=== PATIENT | male | born 1950 | race Caucasian/White ===

== ENCOUNTER 2016-08-25 15:47 | Inpatient (IN) | payer MEDICARE ==
[~2016-08-25] VITALS: Ht 170.2 cm; Wt 100.6 kg
[~2016-08-25 15:47] MED LIST: ASPI-973 PO; ATEN25TA PO; ATRV10T PO; BRIM5DRO BOTH_EYES; CLOP75TA3 PO; FLUT9.9S NS; GABA-504 PO; GUAI600T86 PO; INSU200I SQ; INSU300I SQ; KEN25CR EXT; LISI40TA PO; OMEG1CAP25 PO; OMEP20TA86 PO; SPIRONALACTONE PO; VIT1TABL83 PO
[2016-08-25 16:10] VITALS: BP 146/90; PULSE 90; RESP 16; O2SAT 98
[2016-08-25 16:53] LABS: APPEARANCE,URINE CLEAR (CLEAR,HAZY); COLOR,URINE YELLOW (YELLOW); OCCULT BLOOD,URINE NEGATIVE (NEGATIVE); UROBILINOGEN,URINE NORMAL (NORMAL)
[2016-08-25] MEDS ORDERED: 0.9% Sodium Chloride 1,000 ML IV ONE ×2 (18:50→21:41)
--- NOTE | 2016-08-25 18:59 | DRSVH ---
PROCEDURE: CT ABDOMEN AND PELVIS WITH CONTRAST ([id number]) INDICATIONS: abnormal labs , abd pain TECHNIQUE: After the administration of intravenous contrast, 5 mm thick sections acquired from the diaphragm to the symphysis. 5 mm coronal and sagittal reformats were acquired. For radiation dose reduction, the following was used: automated exposure control, adjustment of mA and/or kV according to patient siz e. COMPARISON: None. FINDINGS: Image quality: Excellent. ABDOMEN: Lung bases: Lung bases are clear. Heart size is normal. Atherosclerotic constipation is noted in th e visualized coronary vasculature. Solid organs: Liver and spleen are normal in size and enhancement. There is a 2.1 cm in diameter enh ancing lesion in the posterior-inferior right lobe liver (segment 6). Lesion may represent a hemangi anny. Gallbladder contains a 3.2 cm maximum diameter gallstone. There is gallbladder wall thickening. Pericholecystic inflammation noted. Findings most compatible with acute cholecystitis.. Biliary s ystem is non dilated. Pancreas enhances normally. No adrenal nodules. Kidneys demonstrate normal s ize and enhancement, without hydronephrosis. 2.4 cm left renal cyst is noted. Peritoneum and bowel: Bowel loops demonstrate normal wall thickness and caliber. No free fluid or a ir. The appendix is normal. Nodes and vessels: No retroperitoneal or mesenteric adenopathy by size criteria. Aorta and inferior vena cava are normal in size. Scattered atherosclerotic calcifications noted in the abdominal and pe lvic vasculature. Miscellaneous: No ventral hernias. PELVIS: Genitourinary: Bladder wall thickness is normal. Miscellaneous: No inguinal hernias or adenopathy. Bones: No suspicious bony lesions. No vertebral body compression fractures. Status post lumbosacral spine fusion. IMPRESSION: 1. Cholelithiasis with gallbladder wall thickening and pericholecystic inflammation compatible keyona cystitis. 2. 2.1 cm enhancing lesion in segment 6 of the liver. Lesion may represent small hemangioma, howeve r a dedicated multiphase CT scan of liver is recommended for definitive characterization of the lesio n. 3. Atherosclerosis including the coronary vasculature. Dictated by: Malika Vaca MD, PhD on 08/25/2016 at 18:53 Approved by: Malika Vaca MD, PhD on 08/25/2016 at 18:58
--- NOTE | 2016-08-25 20:44 | ED.REPORT ---
HPI-Abd Pain M 40 and Over Date of Service Aug 25, 2016 ED Provider: Rocio Hebert MD A 65 year old male with a history of diabetes mellitus, GERD, CAD, hypertension , cardiac stent and hyperlipidemia presents to the ED complaining of abdominal pain that began 2 weeks ago. Patient was seen at Urgent Care this morning and sent to the ED for further evaluation after concerning lab workup. His symptoms initially began with flatulence, abdominal bloating and hyperactive bowel sounds. He attributed his initial abdominal pain to constipation and used prune juice, fiber foods and an enema to help relieve his symptoms and stimulated normal BM. Shortly after he began to experience subjective fever, chills and rigors that were relieved by Aleve and adequate hydration. His symptoms have become progressively worse since onset. Patient is currently taking Plavix and baby aspirin. His last dose was earlier this morning. Nursing Notes Stated Complaint: CONSTIPATION Chief Complaint: Male Abdominal Pain Nursing Notes Reviewed: Yes Allergies: Coded Allergies: Penicillins (Verified Allergy, Severe, anaphylaxis, 08/25/16) hydrocodone (Verified Allergy, Severe, stomach ache, 08/25/16) TAPE (Verified Allergy, Intermediate, rash, 08/25/16) surgical tape only codeine (Verified Allergy, Unknown, UNKNOWN, 08/25/16) Uncoded Allergies: ARM BRACE (NEOPRENE) (Adverse Reaction, Severe, ITCH, RASH, 12/16/15) Scheduled Aspirin (Aspirin) 81 Mg Tablet 81 MG PO DAILY Atenolol (Atenolol) 25 Mg Tablet 25 MG PO DAILY Atorvastatin (Lipitor) 10 Mg Tab 10 MG PO HS Brimonidine Tartrate/Timolol (Combigan Eye Drops) 5 Ml Drops 1 DROP AFFECT_EYE BID Clopidogrel Bisulfate (Plavix) 75 Mg Tablet 75 MG PO DAILY Gabapentin (Gabapentin) 400 Mg Capsule 1,200 MG PO TID Insulin Glargine,Hum.rec.anlog (Toujeo Solostar) 300 Unit/Ml (1.5 Ml) Insuln.pen 120 UNIT SQ QAM Liraglutide (Victoza 2-Kristofer) 0.6 Mg/0.1 Ml Pen.injctr 0.6 MG SQ MORNING Lisinopril (Lisinopril) 40 Mg Tablet 40 MG PO DAILY Spironolactone (Spironolactone) 25 Mg Tablet 25 MG PO DAILY Triamcinolone Acet (Triamcinolone Acetonide Cream) 1 Applic/0.25 Gm Cr 1 APPLIC EXT BID 0.1% Vit B Comp/C/FA/Iron/Vit E (Vitamin B Complex Tablet) 1 Each Tablet 1 EACH PO DAILY Scheduled PRN Insulin Lispro (Humalog Kwikpen) 200 Unit/Ml (3 Ml) Insuln.pen 25-45 UNIT SQ DIRECTED PRN PRN CARB COUNTING INSULIN TO CARB RATIO: 1:1, PT HOLDS INSULIN FOR BG < 150 AT HS General Time Seen by MD: 20:43 Chief Complaint Abdominal pain Hx Obtained From: Patient Arrived By: Walk-in Sudden in Onset?: No Onset Occurred: More than a week ago... (2 weeks) Symptom Duration: Since onset Progression since Onset: Constant Location: : Diffuse Quality: Painful Radiation: : Does not radiate Severity: Current: Moderate Severity: Maximum: Moderate Associated with: Reports: Constipation Pertinent Negative: Pt denies other symptoms Recent Healthcare: No recent hospitalization, Recent doctor visit Risk Factors )( AAA Risk Stratification Risk factors reviewed Past Medical History Past Medical History Coronary Artery Disease Diabetes Mellitus (type II) Hypertension Hyperlipidemia GERD Obesity Dyshidrotc eczema Angina pectoris Sleep apnea Osteoarthritis Past Surgical History Cardiac Surgery (HEART CATH W/ BEATRIZ IN LAD 02/2007) Lumbar Neck surgery Reports: Cataract surgery Smoking History Former Smoker Social History Other Social History: Good social support, , Local resident Ambulatory Status Independent Review of Systems ROS: Flatulence decreased appetite Constitutional: Reports: Chills, Fever Respiratory: Denies: Shortness of breath Cardiovascular: Denies: Chest pain GI: Reports: Abdominal pain, Constipation, Nausea, Vomiting Complete sys rev & neg: except as marked. Physical Exam Initial Vital Signs Vital Signs (First) Date Time Temp Pulse Resp B/P Pulse Ox O2 Delivery O2 Flow Rate FiO2 08/25/16 16:10 36.9 90 16 146/90 98 Room Air Initial VS: Reviewed Head / Eyes: Atraumatic, Normocephalic, PERRL Extremities: Vascular intact, Neuro intact, No swelling, No tenderness Skin: Warm, Dry, No cyanosis Neurologic: Alert, Oriented, Nonfocal Psychiatric: Mood/affect normal, Behavior normal, Normal thought content General/Constitutional: Awake, Alert Respiratory / Chest: Atraumatic, Breath sounds NL, Breath sounds = bilat, No respiratory distress Cardiovascular: Heart rate NL, Regular rhythm, Heart sounds NL, No murmurs Abdomen: Atraumatic, Soft, No guarding, No rebound Tenderness/Guarding/Rebound: Positive: Tender RUQ..., Tender epigastric Back: Atraumatic, Inspection NL Interpretation & Diagnostics WBC 13.3 Hgb 13.[address] 456 Sodium 133 Potassium 6.3 Glucose 265 ALT 93 Alk pase 421 Lab Results Interpretation Test 08/25/16 16:26 08/25/16 16:43 Hold Urine Received (Received) Urine Color Yellow (YELLOW) Urine Appearance Clear (CLEAR,HAZY) Urine pH 6.0 (5.0-8.0) Urine Specific [place] 1.010 (1.003-1.035) Urine Protein Negativemg/dL (NEG,TRACE) Urine Glucose (UA) Negativemg/dL (NEGATIVE) Urine Ketones Negativemg/dL (NEGATIVE) Urine Occult Blood Negative (NEGATIVE) Urine Nitrite Negative (NEGATIVE) Urine Bilirubin Negative (NEGATIVE) Urine Urobilinogen Normalmg/dL (NORMAL) Urine Leukocyte Esterase Negative (NEGATIVE) Urine RBC 0-2/hpf (0-2) Urine WBC 0-5/hpf (0-5) Urine Epithelial Cells Occasional/hpf (NONE-MOD) Urine Crystals None seen (NONE SEEN) Urine Bacteria Few/hpf (NONE-FEW) Urine Hyaline Casts None/lpf (NONE) Urine Granular Casts None seen (NONE SEEN) Urine Waxy Casts None seen (NONE SEEN) Urine Red Blood Cell Casts None seen (NONE SEEN) Urine White Blood Cell Casts None seen (NONE SEEN) Urine Mucus None seen (None Seen) Urine Trichomonas None seen (NONE SEEN) Urine Yeast None (NONE SEEN) Urinalysis Comment None Urine Culture Reflexed Not indicated CT Abd / Pelvis Interpretation IMPRESSION: 1. Cholelithiasis with gallbladder wall thickening and pericholecystic inflammation compatible cholecystitis. 2. 2.1 cm enhancing lesion in segment 6 of the liver. Lesion may represent small hemangioma, however a dedicated multiphase CT scan of liver is recommended for definitive characterization of the lesion. 3. Atherosclerosis including the coronary vasculature. Dictated by: Malika Vaca MD, PhD on 08/25/2016 at 18:53 Study type: Abdominal CT IV contrast Interpretation / Wet Read by: Interpret - Radiologist Re-Eval/Medical Decision Med Decision/Clinical Course Presents with 2 weeks of increasing abdominal pain and general malaise intermittent fevers and chills. Labs and CT scan are consistent with developing cholecystitis. He did take aspirin and Plavix this morning. Will be admitted to the hospitalist service with antibiotics, penicillin allergy, pain control nausea control and surgical consultation. Time of Eval: 21:29 Patient Status: Condition improved Re-Evaluation/Progress Note: Patient is rechecked. He is informed of his diagnosis. The patient's questions about the diagnosis and possible surgery are addressed. Patient understands and agrees with plan to admit. Consultation #1: Referral / Consult Name: Andrew Palma MD Consulted With: Surgeon Call Returned at: 21:37 Director Of Program Management: Agrees with eval, Agrees with plan Note: Recommends antibiotic treatment and reevaluate in 24 hours due to Plavix and aspirin Agrees to consult Consultation #2: Referral / Consult Name: Vic Weber MD Consulted With: Hospitalist Call Returned at: 21:45 Director Of Program Management: Will see patient, Agrees with eval, Agrees with plan, Accepts admit Counseled Regarding: Diagnosis, Lab results, Need for admission Discharge & Departure Primary Impression: Cholecystitis Disposition: ADMITTED TO HOSPITAL Vital Signs - All Vital Signs Date Time Temp Pulse Resp B/P Pulse Ox O2 Delivery O2 Flow Rate FiO2 08/25/16 16:10 36.9 90 16 146/90 98 Room Air )( All Prior VS Reviewed: Yes Condition: Improved Referrals: Lennox Gamez DO (PCP) Jean-Paul Love MD Attestation Portions of this note were transcribed by Maida Calero. I, Dr. Hebert personally performed the history, physical exam and medical decision-making; I reviewed and confirmed the accuracy of the information in the transcribed note. Signed by: Prudencio Richardson, 08/25/16 2200. copies to: Lennox Gamez DO; Andrew Palma MD, Shawna L MD Aug 25, 2016 20:44 MAIDA CALERO Aug 25, 2016 20:57
[2016-08-25] MEDS ORDERED: metroNIDAZOLE Inj 500 MG in IV Premix 1 EACH IV ONE (21:45)
[2016-08-25] MEDS ORDERED: HYDROmorphone 0.5 mg/0.5 mL iSecure Syringe IVPUSH PRN ×2 (21:45→23:35)
[2016-08-25] MEDS ORDERED: Ondansetron 2 mg/mL 2 mL Inj IVPUSH PRN ×2 (21:45→22:05)
[2016-08-25] MEDS ORDERED: cefTRIAXone Inj 2,000 MG in Dextrose 5% Minibag Plus 50 ML IV ONE (21:45)
[2016-08-25] MEDS ORDERED: Alum-Mag Hydrox-Simeth 30 mL Suspension PO PRN (22:05)
[2016-08-25] MEDS ORDERED: Polyethylene Glycol (PEG) 17 Gm Powder PO PRN (22:05)
[2016-08-25 22:19] VITALS: BP 127/74; PULSE 69; RESP 18; O2SAT 97
--- NOTE | 2016-08-25 22:47 | PCM.HPMED ---
Subjective Date of Service Aug 25, 2016 Primary Provider: Admitting Physician: Vic Weber MD Primary Care Physician: Lennox Gamez DO Attending Physician: Vic Weber MD Admit Status: From the Emergency Department, Non-Telemetry Chief Complaint: Abdominal pain History of Present Illness: Mr. Justin March is a 65 year old male with a history of insulin-using diabetes mellitus, CAD with cardiac stent in 2006, hypertension, hyperlipidemia, DASHA, and GERD who presents to the ED complaining of generalized abdominal pain that began 2 weeks ago. Patient was seen at Urgent Care this morning and sent to the ED for further evaluation after concerning lab workup. His symptoms initially began with epigastric pain, bloating, constipation, nausea, and poor appetite. He describes the abdominal pain as "burning" and it worsened with lying on his right side. Patient reports to lose 16lbs in the first week. He initially thought it was the GERD and constipation. He had an enema last Monday and has had 3 or 4 small BMs since. His symptoms seem to improve for a few days. However, shortly after he began to experience subjective fever, chills, and rigors. His was concerned and told him to seek medical care today. Patient has had intermittent abdominal pain in the last year but thought it was the heartburn. Patient is currently taking Plavix and baby aspirin. His last dose of Plavix was earlier this morning. Labs from showed K 6.3. WBC 13, Na 133, ALT 93, alk phos 421. CT abd/pelvis confirmed cholelithiasis with gallbladder wall thickening and pericholecystic inflammation compatible cholecystitis. Antibiotics were initiated in the ED with Ceftriaxone and Metronidazole. Surgery was consulted as well. Review of Systems: A comprehensive review of systems was conducted with the patient and found to be negative except as above in the History of Present Illness. Allergies Coded Allergies: Penicillins (Verified Allergy, Severe, anaphylaxis, 08/25/16) hydrocodone (Verified Allergy, Severe, stomach ache, 08/25/16) TAPE (Verified Allergy, Intermediate, rash, 08/25/16) surgical tape only codeine (Verified Allergy, Unknown, UNKNOWN, 08/25/16) Uncoded Allergies: ARM BRACE (NEOPRENE) (Adverse Reaction, Severe, ITCH, RASH, 12/16/15) Home Medications Per next gen Medication Name Directions Aspirin Low Dose 81 mg tablet,delayed release take 1 tablet by oral route every day atenolol 25 mg tablet take 1 tablet by oral route every day atorvastatin 10 mg tablet take 1 tablet by oral route every day at bedtime BD Insulin Pen Needle UF Mini 31 gauge x 3/16" For use with Victoza Combigan 0.2 %-0.5 % eye drops instill 1 drop by ophthalmic route in each eye twice daily Durable Medical Equipment Please display [address] FreeStyle Lite Strips Use to test for blood sugars 4 times a day gabapentin 400 mg capsule take 3 capsule by oral route 3 times every day Humalog KwikPen 100 unit/mL subcutaneous 50-60 units subcu before meals lisinopril 40 mg tablet take 1 tablet by oral route every day [place]-3 1 tablet by mouth 3 times daily Omeprazole Magnesium 20 Mg Tablet,D 1 tablet by mouth 2 times daily Plavix 75 mg tablet take 1 tablet by oral route every day to prevent blood clots. spironolactone 25 mg tablet take 1 tablet by oral route every day Toujeo SoloStar 300 unit/mL (1.5 mL) subcutaneous insulin pen INJECT SUBCUTANEOUSLY 120 UNITS EVERY MORNING triamcinolone acetonide 0.1 % topical cream apply by topical route 2 times every day a thin layer to the affected area(s) Victoza 2-Kristofer 0.6 mg/0.1 mL (18 mg/3 mL) subcutaneous pen injector inject 1.2mg by subcutaneous route once daily Vitamin B Complex 1 tablet by mouth daily PMH Per [employer] Osteoarthritis, multiple sites Hyperlipidemia Dyshidrotic eczema Postnasal Drip Hypertension Knee pain, bilateral Establishing care with new doctor, encounter for Ankle pain, left Chest discomfort Epigastric pain Primary osteoarthritis of both knees Vasomotor rhinitis Angina pectoris Status post insertion of drug-eluting stent into left anterior descending (LAD) artery DASHA (obstructive sleep apnea) Obesity with body mass index of 30.0-39.9 Microalbuminuria due to type 2 diabetes mellitus Diabetes mellitus Surgical History Cardiac Surgery (HEART CATH W/ BEATRIZ IN LAD 02/2007) Lumbar Neck surgery Reports: Cataract surgery Family History Mother with cholecystitis, DM, and HTN. Social History Hx Alcohol Use: Yes (once a month scotch and burboun ) Hx Substance Use: No Smoking Status: Former Smoker (quit smoking in 1982) Living Arrangement: with Family Additional Information Patient uses crutches to get around due to knee pain. Exam Vital Signs Vital Sign - Last Date Time Temp Pulse Resp B/P Pulse Ox O2 Delivery O2 Flow Rate FiO2 08/25/16 22:19 36.8 69 18 127/74 97 Room Air Exam General: No acute distress, obese, well-developed, appropriately interactive HEENT: Normocephalic, atraumatic. External ears without defect. Pupils equal, round, and reactive to light and accommodation. Anicteric sclerae, moist conjunctivae, and no lid lag. Dry mucosa. Neck: Supple with full range of motion. No jugular venous distension. No bruits. No lymphadenopathy or thyromegaly. Cardiovascular: Regular rate and rhythm with no murmurs, rubs, or gallops appreciated Pulmonary: Clear to auscultation bilaterally with no crackles, wheezes, or rhonchi. Normal respiratory effort with no use of accessory muscles. Abdomen: Obese. Bowel tones present. Soft, nondistended. Moderate tenderness to palpation in epigastric and RUQ. Negative Javier's sign. No rebound tenderness/ guarding. No hepatosplenomegaly or masses appreciated. Extremities: No clubbing, cyanosis, edema, or lymphadenopathy appreciated. Skin: Normal temperature, turgor, and texture; no rash, ulcers, or subcutaneous nodules appreciated. Neurological: Cranial nerves grossly intact. Normal muscle strength, tone, and bulk. Reflexes, coordination, and sensory function within normal limits. No known gait impairment. Psychiatric: Normal mood and affect. Alert and oriented to person, place, and time. Lab and Diagnostics Labs WBC 13.3, Platelets 456, Absolute neutrophils 9.74, Na 133, K 6.3, BUN 52, Cr. 1.10, Glucose 265, Lipase 51. X-Rays, CTs and MRIs PROCEDURE: CT ABDOMEN AND PELVIS WITH CONTRAST IMPRESSION: 1. Cholelithiasis with gallbladder wall thickening and pericholecystic inflammation compatible cholecystitis. 2. 2.1 cm enhancing lesion in segment 6 of the liver. Lesion may represent small hemangioma, however a dedicated multiphase CT scan of liver is recommended for definitive characterization of the lesion. 3. Atherosclerosis including the coronary vasculature. Dictated by: Malika Vaca MD, PhD on 08/25/2016 at 18:53 Approved by: Malika Vaca MD, PhD on 08/25/2016 at 18:58 Assessment & Plan 65 year old male with a history of insulin-using diabetes mellitus, CAD with cardiac stent in 2006, hypertension, hyperlipidemia, DASHA, and GERD who presents to the ED complaining of generalized abdominal pain that began 2 weeks ago. 1. Acute cholecystitis, present on admission, active. - CT abd/pelvis showed Cholelithiasis with gallbladder wall thickening and pericholecystic inflammation compatible cholecystitis. - Dr. Palma (general surgery) was consulted and recommended surgery in a couple days due to patient being on Plavix. - Will hold home Plavix, but ok to continue ASA - NPO overnight and can advance diet in the morning per surgery - Pain management with Dilaudid IV 0.5mg Q4H PRN - Continue to monitor vital signs and labs. 2. Abnormal CT, unknown chronicity, present on admission. - CT abd/pelvis also showed a 2.1 cm enhancing lesion in segment 6 of the liver. Lesion may represent small hemangioma, however a dedicated multiphase CT scan of liver is recommended for definitive characterization of the lesion. - AST 44, ALT 93 - Follow up as outpatient 3. Insulin-using diabetes with peripheral neuropathy, proteinuria, and mild nonproliferative background diabetic retinopathy. Chronic, uncontrolled. - Last A1c was 8.5 in 11/2015. Followed by endocrinology as outpatient. - Patient is on basal bolus insulin of 120 units of Toujeo QAM with Humlog U-20 1.5units per 1 g of carb. - He recently started Victoza 1.2mg SQ. Will hold this while in the hospital. - While the patient is NPO, will cut his basal insulin to 50 units QAM with high correctional scale insulin. Consider resume home insulin once advance diet. - Continue to monitor BG before meals - Check A1c in the morning. - Resume home Gabapentin for neuropathy. 4. Acute hyperkalemia, present on admission, active. - K of 6.3. - EKG did not show any changes. - Hold home Spironolactone and Lisinopril, which can worsen the hyperkalemia. Day team can resume these once the hyperkalemia resolves. - Will continue to monitor. 5. History of CAD, chronic, presume stable. - Will hold Plavix due to upcoming surgery. - Continue ASA, Atorvastatin. - Hold Spironolactone and Lisinopril 6. HTN, chronic, stable. - Resume home Atenolol. - Hold Spironolactone and Lisinopril due to hyperkalemia. 7. Hyperlipidemia, chronic, presume stable. - Continue home Atorvastatin 8. DASHA, chronic. - will bring home CPAP tomorrow - In the mean time, can use O2 supplement at night 9. GERD, chronic. - Change home Omeprazole to Protonix 40mg daily. 10. CODE STATUS: FULL CODE Patient is admitted under inpatient status with expected length of stay greater than 2 midnights due to severity of presenting symptoms, risk of adverse event, and complexity of treatment plan. Pain Evaluation: Adequate Pain Control GI Prophylaxis: Proton Pump Inhibitor VTE Prophylaxis: SCDs Resuscitation Status: CPR: Attempt Resuscitation Attending Statement The patient was seen and examined together with Dr. Cotton on 08/25 and I agree with the history, exam and plan as outlined in the note above. copies to: Lennox Gamez DO Nguyen, Ngochanh H DO Aug 25, 2016 22:47 Vic Weber MD Aug 26, 2016 00:11
[2016-08-25] MEDS ORDERED: ATRV10T PO (22:52)
[2016-08-25] MEDS ORDERED: LIRA0.6P SQ (22:52)
--- NOTE | 2016-08-25 23:07 | NUR ---
Admit Note Pt. arrived on floor at 2255. Pt. is alert and oriented x3. present in room. Peripheral IV intact and patent. IVF going. Will continue to monitor.
[2016-08-25 23:14] VITALS: BP 145/91; PULSE 90; RESP 20; O2SAT 96
[2016-08-25] MEDS: 0.9% Sodium Chloride 1,000 ML IV SCH (23:27)
[2016-08-25] MEDS ORDERED: SPIR25TA3 PO (23:29)
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
[2016-08-26] MEDS ORDERED: Glucose 40% Oral Gel 15 Gm Tube PO PRN (00:15)
--- NOTE | 2016-08-26 00:27 | NUR ---
paged MD Cotton paged regarding heparin order. d/c'd heparin order.
[2016-08-26] MEDS ORDERED: Heparin 5,000 Unit/mL Inj SUBQ SCH (00:30)
[2016-08-26] MEDS: Brimonidine-Timolol 5 mL Ophthalmic Solution BOTH_EYES SCH ×3 (01:40→20:29)
[2016-08-26 04:30] LABS: BASOPHILS % (AUTO) 0.6 % (0-3); MONOCYTES % (AUTO) 8.9 % (4-12); Mean Corpuscular Hemoglobin 26.4 pg (27.0-35.0); Mean Corpuscular Volume 81.3 fL (81-100); Platelet Count 418 bil/L (150-400)
[2016-08-26 04:51] VITALS: BP 127/76; PULSE 104; RESP 18; O2SAT 95
[2016-08-26] MEDS: 0.9% Sodium Chloride 1,000 ML IV SCH ×2 (05:35→18:02)
--- NOTE | 2016-08-26 06:33 | PCM.PNMED ---
Subjective Date of Service Aug 26, 2016 Subjective HPI as per admitting physician: Mr. Justin March is a 65 year old male with a history of insulin-using diabetes mellitus, CAD with cardiac stent in 2006, hypertension, hyperlipidemia, DASHA, and GERD who presents to the ED complaining of generalized abdominal pain that began 2 weeks ago. Patient was seen at Urgent Care this morning and sent to the ED for further evaluation after concerning lab workup. His symptoms initially began with epigastric pain, bloating, constipation, nausea, and poor appetite. He describes the abdominal pain as "burning" and it worsened with lying on his right side. Patient reports to lose 16lbs in the first week. He initially thought it was the GERD and constipation. He had an enema last Monday and has had 3 or 4 small BMs since. His symptoms seem to improve for a few days. However, shortly after he began to experience subjective fever, chills, and rigors. His was concerned and told him to seek medical care today. Patient has had intermittent abdominal pain in the last year but thought it was the heartburn. Patient is currently taking Plavix and baby aspirin. His last dose of Plavix was earlier this morning. Labs from showed K 6.3. WBC 13, Na 133, ALT 93, alk phos 421. CT abd/pelvis confirmed cholelithiasis with gallbladder wall thickening and pericholecystic inflammation compatible cholecystitis. Antibiotics were initiated in the ED with Ceftriaxone and Metronidazole. Surgery was consulted as well. S: no overnight events - npo - held plavix, cont asa - plan for lap keyona in a couple days. plan to advance diet IF tolerated. Exam Vital Signs Vital Sign - Last Date Time Temp Pulse Resp B/P Pulse Ox O2 Delivery O2 Flow Rate FiO2 08/26/16 04:51 36.7 104 18 127/76 95 Room Air Intake and Output 08/25/16 08/25/16 08/26/16 Cumulative From/Thru 15:00 23:00 07:00 08/25/16 16:10 - 08/26/16 05:59 Intake Total 1000 ml 757 ml 1757 ml Output Total 650 ml 650 ml Balance 1000 ml 107 ml 1107 ml Intake Oral 0 ml 0 ml IV Total 1000 ml 757 ml 1757 ml Output Urine Total 650 ml 650 ml # Bowel Movements 0 0 Exam General: No acute distress, obese, well-developed, appropriately interactive HEENT: Normocephalic, atraumatic. perrla. Anicteric sclerae, moist conjunctivae , and no lid lag. Neck: Supple with full range of motion. No jugular venous distension. No bruits. No lymphadenopathy or thyromegaly. Cardiovascular:rr no r/c/m/g Pulmonary: ctab no w/r/r Abdomen: Obese. Bowel tones present. Soft, nondistended. Moderate tenderness to palpation in epigastric and RUQ. Negative Javier's sign. No rebound tenderness/ guarding. No hepatosplenomegaly or masses appreciated. Extremities: No c/c/e or lymphadenopathy appreciated. Skin: Normal temperature, turgor, and texture, no rashes Neurological: Cranial nerves 2-12 grossly intact. Normal muscle strength, tone , and bulk. IVs and Medications Medications Reviewed: Medications were reviewed in detail Lab and Diagnostics Result Diagram: 08/26/1640908/26/16409 X-Rays, CTs and MRIs PROCEDURE: CT ABDOMEN AND PELVIS WITH CONTRAST IMPRESSION: 1. Cholelithiasis with gallbladder wall thickening and pericholecystic inflammation compatible cholecystitis. 2. 2.1 cm enhancing lesion in segment 6 of the liver. Lesion may represent small hemangioma, however a dedicated multiphase CT scan of liver is recommended for definitive characterization of the lesion. 3. Atherosclerosis including the coronary vasculature. Dictated by: Malika Vaca MD, PhD on 08/25/2016 at 18:53 Approved by: Malika Vaca MD, PhD on 08/25/2016 at 18:58 Assessment & Plan 65 year old male with a history of insulin-using diabetes mellitus, CAD with cardiac stent in 2006, hypertension, hyperlipidemia, DASHA, and GERD who presents to the ED complaining of generalized abdominal pain that began 2 weeks ago. 1. Acute cholecystitis, present on admission, active. - CT abd/pelvis showed Cholelithiasis with gallbladder wall thickening and pericholecystic inflammation compatible cholecystitis. - Dr. Palma (general surgery) was consulted and recommended surgery in a couple days due to patient being on Plavix. - Will hold home Plavix, but ok to continue ASA - NPO overnight and may advance diet in the morning per surgery - Pain management with Dilaudid IV 0.5mg Q4H PRN - Continue to monitor vital signs and labs. 2. Abnormal CT, unknown chronicity, present on admission. - CT abd/pelvis also showed a 2.1 cm enhancing lesion in segment 6 of the liver. Lesion may represent small hemangioma, however a dedicated multiphase CT scan of liver is recommended for definitive characterization of the lesion. - AST 44, ALT 93 - Follow up as outpatient 3. Insulin-using diabetes with peripheral neuropathy, proteinuria, and mild nonproliferative background diabetic retinopathy. Chronic, uncontrolled. - Last A1c was 8.5 in 11/2015. Followed by endocrinology as outpatient. - Patient is on basal bolus insulin of 120 units of Toujeo QAM with Humlog U-20 1.5units per 1 g of carb. - He recently started Victoza 1.2mg SQ. Will hold this while in the hospital. - While the patient is NPO, will cut his basal insulin to 50 units QAM with high correctional scale insulin. Consider resume home insulin once advance diet. - Continue to monitor BG before meals - Check A1c - Resume home Gabapentin for neuropathy. 4. Acute hyperkalemia, present on admission, active. - K of 6.3. - EKG did not show any changes. - Hold home Spironolactone and Lisinopril, which can worsen the hyperkalemia. Day team can resume these once the hyperkalemia resolves. - Will continue to monitor. 5. History of CAD, chronic, presume stable. - Will hold Plavix due to upcoming surgery. - Continue ASA, Atorvastatin. - Hold Spironolactone and Lisinopril 6. HTN, chronic, stable. - Resume home Atenolol. - Hold Spironolactone and Lisinopril due to hyperkalemia. 7. Hyperlipidemia, chronic, presume stable. - Continue home Atorvastatin 8. DASHA, chronic. - will bring home CPAP today - In the mean time, can use O2 supplement at night 9. GERD, chronic. - Change home Omeprazole to Protonix 40mg daily. 10. CODE STATUS: FULL CODE Patient is admitted under inpatient status with expected length of stay greater than 2 midnights due to severity of presenting symptoms, risk of adverse event, and complexity of treatment plan. Pain Evaluation: Adequate Pain Control GI Prophylaxis: Proton Pump Inhibitor VTE Prophylaxis: Sub-Q Heparin (Unfractionated) VTE Mechanical Devices: Intermittant Pneumatic CD Resuscitation Status: CPR: Attempt Resuscitation Time spent 45 minutes spent with eval and mgmt Lennox Tabor DO Aug 26, 2016 06:33
[2016-08-26] MEDS: Insulin LISPRO 300 Unit/3 mL Inj SUBQ SCH ×4 (08:00→22:34)
[2016-08-26] MEDS ORDERED: Lisinopril 40 Tablet PO SCH (08:30)
[2016-08-26] MEDS ORDERED: Insulin GLARgine 100 Unit/mL Syringe SUBQ SCH (08:30)
--- NOTE | 2016-08-26 08:31 | PCM.PNSURG ---
Subjective Date of Service: Aug 26, 2016 Date of Service: Aug 26, 2016 Visit Information: Reason for Visit: Cholelithiasis with gallbladder wall thickening and pericholecystic inflammation compatible cholecystitis Date of Admission: Aug 25, 2016 at 22:16 Hospital Day # 2 Subjective: The patient is lying in bed in no apparent distress. He continues with generalized abdominal discomfort 3-4/10. He denies fever, chills, or nausea. He does have an appetite and feels he can tolerate some Jell-O but not overly hungry for a meal. Gastrointestinal: No N/V Pain Management: IV Push Postop Activity: Ambulating Independently Objective Vital Sign- Last 8 Hours Date Time Temp Pulse Resp B/P Pulse Ox O2 Delivery O2 Flow Rate FiO2 08/26/16 04:51 36.7 104 18 127/76 95 Room Air Intake and Output- Last 8 Hour 08/26/16 Cumulative From/Thru 07:00 08/25/16 16:10 - 08/26/16 05:59 Intake Total 757 ml 1757 ml Output Total 650 ml 650 ml Balance 107 ml 1107 ml Intake Oral 0 ml 0 ml IV Total 757 ml 1757 ml Output Urine Total 650 ml 650 ml # Bowel Movements 0 0 General: Alert, Oriented X3, No Acute Distress Lungs: Clear to Auscultation Heart: Regular Rate/Rhythm, Normal S1, Normal S2, No Murmurs/Rubs/Gallops Abdomen: Soft, Non-distended, Other (slightly tender mid epigastric) Extremities: Warm, Thigh&Calf Soft/Nontender Neuro: Grossly Neurologically Intact Catheters: None Result Diagram: 08/26/16 0410 08/26/16 0410 Diagnostics: 08/25/16 CT of Abdomen IMPRESSION: 1. Cholelithiasis with gallbladder wall thickening and pericholecystic inflammation compatible cholecystitis.a 2. 2.1 cm enhancing lesion in segment 6 of the liver. Lesion may represent small hemangioma, however a dedicated multiphase CT scan of liver is recommended for definitive characterization of the lesion. 3. Atherosclerosis including the coronary vasculature. Assessment & Plan Impression 65 y/o male with a HX of CAD S/P BEATRIZ to LAD in 2006 on chronic aspirin/plavix therapy who presented to [facility] from Urgent Care c/o worsening abdominal pain and bloating for the last several weeks. Admitted for Acute Cholecystitis. Problems: Plan -Stop plavix, continue aspirin -Advance diet to Full liquid -Decrease IV fluids once taking adequate fluid intake and continue antibiotics -Laparoscopic cholecystectomy possibly Monday. Pain Management: IV push prn VTE Prophylaxis: Sub-Q Heparin (Unfractionated) Resuscitation Status: CPR: Attempt Resuscitation Yue Cartagena PA-C Aug 26, 2016 08:31
[2016-08-26 09:38] VITALS: BP 137/87; PULSE 104; RESP 17; O2SAT 95
--- NOTE | 2016-08-26 12:47 | NUR ---
Social Work- Initial Assessment Data: See Initial Assessment. Pt is a 65 year old male admitted 08/25/16 for cholecystitis per H&P. Pt's insurance is [employer]. Pt's PCP is Lennox Gamez DO. SW met with pt and Lis at bedside to discuss discharge plan, SW role explained. Pt alert and oriented x3. Pt resides in [place] with his where he uses crutches/cane/wheelchair [place]. Pt states he is independent with ADLs. Pt drives. Pt has no HH or SNF history, no LTC or VA benefits. Pt received DPOA paperwork at admission, declined further information. Surgery is following patient. Pt to discharge home with to transport via POV when medically stable. No anticipated discharge needs. SW will continue to follow. Assessment: Pt who is independent at base. Plan: Pt to discharge home with to transport via POV when medically stable. No anticipated discharge needs. SW will continue to follow. LISA Curiel Addendum: 08/26/16 at 1257 by HIREN CORNELL Amended: Links added.
[2016-08-26 13:36] VITALS: BP 146/88; PULSE 101; RESP 14; O2SAT 97
[2016-08-26 17:10] VITALS: BP 145/88; PULSE 80; RESP 14; O2SAT 96
--- NOTE | 2016-08-26 19:35 | NUR ---
activity Pt resting most of shift. voiding without difficulty, no complaints of pain or nausea.
[2016-08-26 20:30] VITALS: BP 137/78; PULSE 88; RESP 18; O2SAT 92
--- NOTE | 2016-08-27 04:03 | NUR ---
Update on pt. care Pt. states "of some discomfort", but denies need for pain meds. No nausea or vomiting. Will continue to monitor.
[2016-08-27 04:35] VITALS: BP 129/80; PULSE 65; RESP 16; O2SAT 95
[2016-08-27 05:03] LABS: BASOPHILS % (AUTO) 0.5 % (0-3); EOSINOPHILS % (AUTO) 2.9 % (0-5); MONOCYTES % (AUTO) 9.9 % (4-12); Mean Corpuscular Hemoglobin 26.3 pg (27.0-35.0); Mean Corpuscular Volume 83.3 fL (81-100); NEUTROPHILS % (AUTO) 59.7 % (40-74); Platelet Count 391 bil/L (150-400)
--- NOTE | 2016-08-27 07:07 | PCM.PNMED ---
Subjective Date of Service Aug 27, 2016 Subjective no sig complaints ovenright - afebrile, did not start IV abx given clinical appearance - plan for sx tomorrow, npo tonight at midnight. denies cp/sob - pain controlled Exam Vital Signs Vital Sign - Last Date Time Temp Pulse Resp B/P Pulse Ox O2 Delivery O2 Flow Rate FiO2 08/27/16 04:35 36.6 65 16 129/80 95 CPAP Intake and Output 08/26/16 08/26/16 08/27/16 Cumulative From/Thru 15:00 23:00 07:00 08/25/16 16:10 - 08/27/16 07:00 Intake Total 1334 ml 1069 ml 4160 ml Output Total 1250 ml 850 ml 2750 ml Balance 84 ml 219 ml 1410 ml Intake Oral 1334 ml 520 ml 1854 ml IV Total 549 ml 2306 ml Output Urine Total 1250 ml 850 ml 2750 ml # Voids 2 2 # Bowel Movements 0 0 0 Exam General: No acute distress, obese, well-developed, appropriately interactive HEENT: Normocephalic, atraumatic. perrla. Anicteric sclerae, moist conjunctivae , and no lid lag. Neck: Supple with full range of motion. No jugular venous distension. No bruits. No lymphadenopathy or thyromegaly. Cardiovascular:rr no r/c/m/g Pulmonary: ctab no w/r/r Abdomen: Obese. Bowel tones present. Soft, nondistended. Moderate tenderness to palpation in epigastric and RUQ. Negative Javier's sign. No rebound tenderness/ guarding. No hepatosplenomegaly or masses appreciated. Extremities: No c/c/e or lymphadenopathy appreciated. Skin: Normal temperature, turgor, and texture, no rashes Neurological: Cranial nerves 2-12 grossly intact. Normal muscle strength, tone , and bulk. IVs and Medications Medications Reviewed: Medications were reviewed in detail Lab and Diagnostics Result Diagram: 08/27/1643408/27/16434 X-Rays, CTs and MRIs PROCEDURE: CT ABDOMEN AND PELVIS WITH CONTRAST IMPRESSION: 1. Cholelithiasis with gallbladder wall thickening and pericholecystic inflammation compatible cholecystitis. 2. 2.1 cm enhancing lesion in segment 6 of the liver. Lesion may represent small hemangioma, however a dedicated multiphase CT scan of liver is recommended for definitive characterization of the lesion. 3. Atherosclerosis including the coronary vasculature. Dictated by: Malika Vaca MD, PhD on 08/25/2016 at 18:53 Approved by: Malika Vaca MD, PhD on 08/25/2016 at 18:58 12-lead ECG SR, q waves inferiorly - no acute ischemic changes Assessment & Plan 65 year old male with a history of insulin-using diabetes mellitus, CAD with cardiac stent in 2006, hypertension, hyperlipidemia, DASHA, and GERD who presents to the ED complaining of generalized abdominal pain that began 2 weeks ago. 1. Acute cholecystitis, present on admission, active. - CT abd/pelvis showed Cholelithiasis with gallbladder wall thickening and pericholecystic inflammation compatible cholecystitis. - Dr. Palma (general surgery) was consulted and recommended surgery in a couple days due to patient being on Plavix. - holding Plavix, continuing ASA - NPO tonight for sx - Pain management with Dilaudid IV 0.5mg Q4H PRN - Continue to monitor vital signs and labs - clinically stable off abx 2. Abnormal CT, unknown chronicity, present on admission. - CT abd/pelvis also showed a 2.1 cm enhancing lesion in segment 6 of the liver. Lesion may represent small hemangioma, however a dedicated multiphase CT scan of liver is recommended for definitive characterization of the lesion. - AST 44, ALT 93 - Follow up as outpatient 3. Insulin-using diabetes with peripheral neuropathy, proteinuria, and mild nonproliferative background diabetic retinopathy. Chronic, uncontrolled. - Last A1c was 8.5 in 11/2015--> 9.6 08/26. Followed by endocrinology as outpatient. - Patient is on basal bolus insulin of 120 units of Toujeo QAM with Humlog U-20 1.5units per 1 g of carb. - He recently started Victoza 1.2mg SQ. Will hold this while in the hospital. - While the patient is NPO, will cut his basal insulin to 50 units QAM-->15u with high correctional scale insulin. - Continue to monitor BG before meals - Resume home Gabapentin for neuropathy. 4. Acute hyperkalemia, present on admission, active. - K of 6.3--> 5.3 today repeat, kayexylate if needed - EKG did not show any changes. - Hold home Spironolactone and Lisinopril, which can worsen the hyperkalemia. Day team can resume these once the hyperkalemia resolves. - Will continue to monitor. 5. History of CAD, chronic, presume stable. - holding Plavix due to upcoming surgery. - Continue ASA, Atorvastatin. - Hold Spironolactone and Lisinopril 6. HTN, chronic, stable. - Resume home Atenolol. - Hold Spironolactone and Lisinopril due to hyperkalemia. 7. Hyperlipidemia, chronic, presume stable. - Continue home Atorvastatin 8. DASHA, chronic. - cont cpap - In the mean time, can use O2 supplement at night 9. GERD, chronic. - Change home Omeprazole to Protonix 40mg daily. 10. CODE STATUS: FULL CODE Patient is admitted under inpatient status with expected length of stay greater than 2 midnights due to severity of presenting symptoms, risk of adverse event, and complexity of treatment plan. Dispo pending sx tomorrow and clinical stability thereafter Pain Evaluation: Adequate Pain Control GI Prophylaxis: Proton Pump Inhibitor VTE Prophylaxis: Sub-Q Heparin (Unfractionated) VTE Mechanical Devices: Intermittant Pneumatic CD Resuscitation Status: CPR: Attempt Resuscitation Time spent 35 minutes spent with priyanka and Lennox Page DO Aug 27, 2016 07:07
[2016-08-27] MEDS: Insulin LISPRO 300 Unit/3 mL Inj SUBQ SCH ×4 (07:27→20:26)
[2016-08-27 08:49] VITALS: BP 127/72; PULSE 80; RESP 18; O2SAT 96
--- NOTE | 2016-08-27 10:21 | PCM.PNSURG ---
Subjective Visit Information: Reason for Visit Cholecystitis Surgery/Surgery Date Post-Op Day # Date of Admission: Aug 25, 2016 at 22:16 Hospital Day # Subjective: feeling fine, still some RUQ discomfort, had a BM Objective Objective Awake in bed Abd: soft Vital Sign- Last 8 Hours Date Time Temp Pulse Resp B/P Pulse Ox O2 Delivery O2 Flow Rate FiO2 08/27/16 08:49 36.7 80 18 127/72 96 Room Air 08/27/16 04:35 36.6 65 16 129/80 95 CPAP Intake and Output- Last 8 Hour 08/27/16 Cumulative From/Thru 07:00 08/25/16 16:10 - 08/27/16 07:00 Intake Total 1069 ml 4160 ml Output Total 850 ml 2750 ml Balance 219 ml 1410 ml Intake Oral 520 ml 1854 ml IV Total 549 ml 2306 ml Output Urine Total 850 ml 2750 ml # Voids 2 2 # Bowel Movements 0 0 Result Diagram: 08/27/16 0435 08/27/16 0810 Assessment & Plan Impression Cholelithiasis vs cholecystitis Problems: Plan Plan for OR tomorrow ? abx stopped? VTE Prophylaxis: Sub-Q Heparin (Unfractionated) Resuscitation Status: CPR: Attempt Resuscitation Andrew Palma MD Aug 27, 2016 10:21
[2016-08-27] MEDS: Insulin GLARgine 100 Unit/mL Syringe SUBQ SCH (10:41)
[2016-08-27] MEDS: Brimonidine-Timolol 5 mL Ophthalmic Solution BOTH_EYES SCH ×2 (10:43→20:23)
[2016-08-27] MEDS: metroNIDAZOLE Inj 500 MG in IV Premix 1 EACH IV SCH (11:42)
[2016-08-27 12:37] VITALS: BP 128/76; PULSE 60; RESP 18; O2SAT 96
[2016-08-27] MEDS: 0.9% Sodium Chloride 1,000 ML IV SCH ×2 (12:50→20:47)
[2016-08-27] MEDS ORDERED: levoFLOXacin Inj 500 MG in IV Premix 1 EACH IV SCH (14:58)
[2016-08-27 16:53] VITALS: BP 132/74; PULSE 69; RESP 18; O2SAT 97
--- NOTE | 2016-08-27 19:11 | NUR ---
Activity Patient denied pain and nausea this shift. Patient up to bathroom with SBA/FWW. NPO after midnight for surgery on Monday. Patient repositions self for comfort. Call light and tray table within reach. Will continue to monitor patient hourly.
[2016-08-27 20:20] VITALS: BP 136/80; PULSE 77; RESP 18; O2SAT 95
[2016-08-27] MEDS ORDERED: Ciprofloxacin Inj 400 MG in IV Premix 1 EACH IV SCH (20:30)
[2016-08-28] VITALS (7 sets, daily range): BP systolic 106–154; BP diastolic 58–94; PULSE 63–79; RESP 16–20; O2SAT 96–100
[2016-08-28] MEDS: metroNIDAZOLE Inj 500 MG in IV Premix 1 EACH IV SCH ×3 (00:36→19:09)
--- NOTE | 2016-08-28 04:09 | NUR ---
Activity Pt. was informed and educated on being NPO at midnight for surgery today. Pt. verbalized understanding. Pt. reports "a dull ache" in his right upper quadrant of abdomen, however denies need for pain medicine at this time. Will continue to monitor.
[2016-08-28 05:00] LABS: BASOPHILS % (AUTO) 0.3 % (0-3); EOSINOPHILS % (AUTO) 3.5 % (0-5); MONOCYTES % (AUTO) 10.4 % (4-12); Mean Corpuscular Hemoglobin 26.4 pg (27.0-35.0); Mean Corpuscular Volume 82.4 fL (81-100); NEUTROPHILS % (AUTO) 58.3 % (40-74); Platelet Count 368 bil/L (150-400)
[2016-08-28] MEDS ORDERED: Albuterol HFA 60 Puff 8 Gm Inhaler INHALATION ONE (06:40)
--- NOTE | 2016-08-28 06:44 | PCM.PNMED ---
Subjective Date of Service Aug 28, 2016 Subjective pt with minimal pain overnight, no nausea, passing gas - NPO now for surgery today. mild elev K, repeat level and dose of albuterol this AM. Kayexylate when taking PO Exam Vital Signs Vital Sign - Last Date Time Temp Pulse Resp B/P Pulse Ox O2 Delivery O2 Flow Rate FiO2 08/28/16 05:40 36.3 79 16 139/79 97 Room Air Intake and Output 08/27/16 08/27/16 08/28/16 Cumulative From/Thru 15:00 23:00 07:00 08/25/16 16:10 - 08/28/16 05:37 Intake Total 1618 ml 689 ml 6467 ml Output Total 1040 ml 3790 ml Balance 578 ml 689 ml 2677 ml Intake Oral 840 ml 2694 ml IV Total 778 ml 689 ml 3773 ml Output Urine Total 1040 ml 3790 ml # Voids 2 # Bowel Movements 3 3 Exam General: No acute distress, obese, well-developed, appropriately interactive HEENT: Normocephalic, atraumatic. perrla. Anicteric sclerae, moist conjunctivae , and no lid lag. Neck: Supple with full range of motion. No jugular venous distension. No bruits. No lymphadenopathy or thyromegaly. Cardiovascular:rr no r/c/m/g Pulmonary: ctab no w/r/r Abdomen: Obese. Bowel tones present. Soft, nondistended. Moderate tenderness to palpation in epigastric and RUQ. Negative Javier's sign. No rebound tenderness/ guarding. No hepatosplenomegaly or masses appreciated. Extremities: No c/c/e or lymphadenopathy appreciated. Skin: Normal temperature, turgor, and texture, no rashes Neurological: Cranial nerves 2-12 grossly intact. Normal muscle strength, tone , and bulk. IVs and Medications Medications Reviewed: Medications were reviewed in detail Lab and Diagnostics Result Diagram: 08/28/1641408/28/16414 X-Rays, CTs and MRIs PROCEDURE: CT ABDOMEN AND PELVIS WITH CONTRAST IMPRESSION: 1. Cholelithiasis with gallbladder wall thickening and pericholecystic inflammation compatible cholecystitis. 2. 2.1 cm enhancing lesion in segment 6 of the liver. Lesion may represent small hemangioma, however a dedicated multiphase CT scan of liver is recommended for definitive characterization of the lesion. 3. Atherosclerosis including the coronary vasculature. Dictated by: Malika Vaca MD, PhD on 08/25/2016 at 18:53 Approved by: Malika Vaca MD, PhD on 08/25/2016 at 18:58 12-lead ECG SR, q waves inferiorly - no acute ischemic changes Assessment & Plan 65 year old male with a history of insulin-using diabetes mellitus, CAD with cardiac stent in 2006, hypertension, hyperlipidemia, DASHA, and GERD who presents to the ED complaining of generalized abdominal pain that began 2 weeks ago. 1. Acute cholecystitis, present on admission, active. - CT abd/pelvis showed Cholelithiasis with gallbladder wall thickening and pericholecystic inflammation compatible cholecystitis. - Dr. Palma (general surgery) was consulted and recommended delaying sx since pt was on plavix - sx planned 08/28 - holding Plavix, continuing ASA, will hold today 08/28 for sx and restart after - NPO tonight for sx - Pain management with Dilaudid IV 0.5mg Q4H PRN - Continue to monitor vital signs and labs - levo/flagyl abx 2. Abnormal CT, unknown chronicity, present on admission. - CT abd/pelvis also showed a 2.1 cm enhancing lesion in segment 6 of the liver. Lesion may represent small hemangioma, however a dedicated multiphase CT scan of liver is recommended for definitive characterization of the lesion. - AST 44, ALT 93 --> resolved - Follow up as outpatient w PCP Dr. Gamez 3. Insulin-using diabetes with peripheral neuropathy, proteinuria, and mild nonproliferative background diabetic retinopathy. Chronic, uncontrolled. - Last A1c was 8.5 in 11/2015--> 9.6 08/26. Followed by endocrinology as outpatient. - Patient is on basal bolus insulin of 120 units of Toujeo QAM with Humlog U-20 1.5units per 1 g of carb. - He recently started Victoza 1.2mg SQ. Will hold this while in the hospital. - While the patient is NPO, will cut his basal insulin to 50 units QAM-->15u with high correctional scale insulin. - Continue to monitor BG before meals - Resume home Gabapentin for neuropathy. 4. Acute hyperkalemia, present on admission, active. - K of 6.3--> 5.3 today repeat, kayexylate if needed. repeat level, add albuterol inhaler today, kayexylate after sx - repeat ekg 08/28, no prev changes with mild elev K - Hold home Spironolactone and Lisinopril, which can worsen the hyperkalemia. - Will continue to monitor. 5. History of CAD, chronic, presume stable. - holding Plavix due to upcoming surgery. - Continue ASA, Atorvastatin. - Hold Spironolactone and Lisinopril 6. HTN, chronic, stable. - Resume home Atenolol. - Hold Spironolactone and Lisinopril due to hyperkalemia. 7. Hyperlipidemia, chronic, presume stable. - Continue home Atorvastatin 8. DASHA, chronic. - cont cpap - In the mean time, can use O2 supplement at night 9. GERD, chronic. - Change home Omeprazole to Protonix 40mg daily. 10. CODE STATUS: FULL CODE Patient is admitted under inpatient status with expected length of stay greater than 2 midnights due to severity of presenting symptoms, risk of adverse event, and complexity of treatment plan. Dispo pending sx tomorrow and clinical stability thereafter Pain Evaluation: Adequate Pain Control GI Prophylaxis: Proton Pump Inhibitor VTE Prophylaxis: Sub-Q Heparin (Unfractionated) VTE Mechanical Devices: Intermittant Pneumatic CD Resuscitation Status: CPR: Attempt Resuscitation Time spent 35 minutes spent with priyanka and Lennox Page DO Aug 28, 2016 06:44
[2016-08-28] MEDS: Insulin LISPRO 300 Unit/3 mL Inj SUBQ SCH ×2 (08:00→15:50)
[2016-08-28] MEDS ORDERED: fentaNYL-PF 50 mCg/mL 2 mL Inj ONE (08:24)
[2016-08-28] MEDS: Insulin GLARgine 100 Unit/mL Syringe SUBQ SCH (08:24)
[2016-08-28] MEDS ORDERED: Vasopressin 20 Unit/mL Inj ONE (08:24)
[2016-08-28] MEDS ORDERED: Rocuronium 10 mg/mL 5 mL Inj ONE (08:24)
[2016-08-28] MEDS ORDERED: Propofol 10,000 mCg/mL 20 mL Inj ONE (08:24)
[2016-08-28] MEDS ORDERED: EPHEDrine/NS 5 mg/mL 5 mL Syringe ONE (08:24)
[2016-08-28] MEDS ORDERED: Phenylephrine/NS 100 mCg/mL 10 mL Syringe IVPUSH ONE (08:24)
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
--- NOTE | 2016-08-28 09:30 | NUR ---
TO OR IV ABT ongoing. Beta-aleyda administered. NPO since midnight. SCD's are on. Report given to Madeleine in the OR. Transferred to the OR via a gurney. is aware of this.
[2016-08-28] MEDS: Brimonidine-Timolol 5 mL Ophthalmic Solution BOTH_EYES SCH ×2 (09:31→21:52)
[2016-08-28] MEDS ORDERED: Lactated Ringer's 1,000 ML IV ONE ×4 (10:18→14:06)
[2016-08-28] MEDS ORDERED: Lactated Ringer's 500 ML IV PRN (10:34)
[2016-08-28] MEDS ORDERED: Lactated Ringer's 1,000 ML IV SCH (10:34)
[2016-08-28] MEDS ORDERED: hydrALAZINE 20 mg/mL Inj IVPUSH PRN (10:35)
[2016-08-28] MEDS ORDERED: Phenylephrine 10,000 mCg/mL Inj IVPUSH PRN (10:35)
[2016-08-28] MEDS ORDERED: EPHEDrine Sulfate 50 mg/mL Inj IVPUSH PRN (10:35)
[2016-08-28] MEDS ORDERED: Labetalol 5 mg/mL 4 mL Inj IV PRN (10:35)
[2016-08-28] MEDS ORDERED: fentaNYL-PF 50 mCg/mL 2 mL Inj IVPUSH PRN (10:35)
[2016-08-28] MEDS ORDERED: Dexamethasone 4 mg/mL Inj IVPUSH PRN (10:35)
[2016-08-28] MEDS ORDERED: Ondansetron 2 mg/mL 2 mL Inj IVPUSH PRN (10:35)
[2016-08-28] MEDS ORDERED: Atropine 0.4 mg/mL Inj IVPUSH PRN (10:35)
[2016-08-28] MEDS ORDERED: HYDROmorphone 1 mg/mL Inj IVPUSH PRN ×2 (10:35→15:25)
[2016-08-28] MEDS ORDERED: Bupivacaine 0.5%/EPI 50 mL Inj INFILTRATE ONE (10:59)
[2016-08-28] MEDS ORDERED: 0.9% Sodium Chloride 1,000 ML IV ONE ×3 (12:17→14:06)
[2016-08-28 13:51] LABS: BASOPHILS % (AUTO) 0.2 % (0-3); EOSINOPHILS % (AUTO) 0.9 % (0-5); MONOCYTES % (AUTO) 5.3 % (4-12); Mean Corpuscular Hemoglobin 26.6 pg (27.0-35.0); Mean Corpuscular Volume 85.6 fL (81-100); NEUTROPHILS % (AUTO) 76.3 % (40-74); Platelet Count 394 bil/L (150-400)
[2016-08-28 14:04] LABS: INR 1.12 ratio
[2016-08-28 14:22] LABS: Magnesium 1.2 mg/dL (1.6-2.6)
--- NOTE | 2016-08-28 14:59 | DRSVH ---
PROCEDURE: X-RAY OPERATIVE CHOLANGIOGRAM ([id number]) INDICATIONS: STONES COMPARISON: None. FINDINGS: Biliary ducts: The surgeon injected contrast into the biliary ducts after cannulation of the cystic duct stump. Visualized intra-hepatic ducts are within normal limits. No filling of the common bile d uct nor common hepatic duct is present. There is extravasation of contrast at the cannula insertion s ite. There is mild narrowing of the common bile duct at the cannula insertion site. There is irregula rity and narrowing of the common bile duct proximally. There is eventually flow of contrast into the duodenum. Distal common bile duct demonstrates mild narrowing. IMPRESSION: 1. Moderate narrowing and irregularity of the proximal aspect of the common bile duct. This could be further assessed with ERCP, if clinically indicated. Dictated by: Amber Knapp M.D. on 08/28/2016 at 14:52 Approved by: Amber Knapp M.D. on 08/28/2016 at 14:57
[2016-08-28] MEDS ORDERED: fentaNYL 2,500 mCg/250 mL 2,500 MCG in IV Premix 1 EACH IV PRN (16:22)
[2016-08-28] MEDS: Chlorhexidine 0.12% 15 mL Oral Solution MT SCH ×2 (16:30→20:30)
--- NOTE | 2016-08-28 16:45 | DRSVH ---
PROCEDURE: X-RAY CHEST ONE VIEW, PORTABLE ([id number]) INDICATIONS: Postoperative. ETT with withdrawn following the film. TECHNIQUE: One view of the chest was acquired. COMPARISON: [facility], CR, XR ABD ACUTE SERIES 3VW, 08/25/2016, 11:22. FINDINGS: Surgical changes and devices: ETT extends into the right mainstem bronchus. NGT extends below the lev el of the film. The left sided central venous catheter, tip of which is not definitively venous. Lungs and pleura: No pleural effusions or pneumothorax. Moderate left basilar airspace opacity. Mediastinum: Mediastinal contours appear normal. Heart size is normal. Bones and chest wall: No suspicious bony lesions. Overlying soft tissues appear unremarkable. IMPRESSION: 1. Right mainstem bronchus intubation. 2. Left-sided catheter has been placed, the tip of which is not well seen, and is possibly arterial. Repeat imaging versus blood gas measurements on catheter aspirate recommended. 3. Left basilar atelectasis versus pneumonia. Follow up plain films of the chest are recommended to ensure resolution, and to exclude underlying or central malignancy. 4. Findings discussed with Dr. Chi on 08.28.16 at 1643 hrs. Dictated by: Amber Knapp M.D. on 08/28/2016 at 16:39 Transcribed by: JOSIAS on 08/28/2016 at 16:45 Approved by: Amber Knapp M.D. on 08/28/2016 at 16:46
[2016-08-28] MEDS ORDERED: Insulin Human REGular Inj 100 UNIT in 0.9% Sodium Chloride-Pha MIX 100 ML IV SCH (16:58)
[2016-08-28] MEDS: Propofol Inj 1,000,000 MCG in IV Premix 1 EACH IV SCH (16:59)
[2016-08-28] MEDS ORDERED: Sodium Chloride LOK Flush 10 mL Syringe IVFLUSH PRN ×4 (17:05→18:50)
--- NOTE | 2016-08-28 17:05 | ABG ---
DateTimeAnalyzed 17:01:00 -_ pH ____7.465 - 7.350 7.450 pCO2 ___26.3__ -mmHg 35.0 45.0 pO2 120 -mmHg 69.0 116 HCO3- ___18.7__ -mmol/L 22.0 26.0 ABE ___-3.3__ -mmol/L -2.0 2.0 tHb ___12.8__ -g/dL O2Hb ___96.6__ -% COHb ____1.4__ -% MetHb ____1.0__ -% sO2 ___99.0__ -% 25.0 FIO2 ___60.0__ -% PEEP ____5.0__ -cmH2O Set_RR ___20.0__ -b/min Vt __500.0__ -L Drawn By KBB - Date/Time Notified____ 17:04:00 -_ Oxygen Device 1 VENTILATOR - Notified By KBB - Notified Whom Ochoa Chi, MD -__ B 750 -mmHg tO2 ___17.6__ -Vol% Addy test N/A -
[2016-08-28 17:07] LABS: BASOPHILS % (AUTO) 0.1 % (0-3); EOSINOPHILS % (AUTO) 0 % (0-5); MONOCYTES % (AUTO) 6.9 % (4-12); Mean Corpuscular Hemoglobin 28.9 pg (27.0-35.0); Mean Corpuscular Volume 84.9 fL (81-100); NEUTROPHILS % (AUTO) 88.5 % (40-74); Platelet Count 334 bil/L (150-400)
--- NOTE | 2016-08-28 17:11 | PCM.ANEP1 ---
Post Anesthesia Phase 1 PACU Phase 1 Assessment Date of Service: Aug 26, 2016 Vital Signs Vital Signs Date Time Temp Pulse Resp B/P Pulse Ox O2 Delivery O2 Flow Rate FiO2 08/28/16 09:36 36.5 63 16 133/73 96 Room Air Anesthetic Administered: GA Pain: No Airway Device: Endotrachial Tube Lungs: Clear to Auscultation Summary Patient to ICU intubated on monitor. VS stable Stuart Stevens MD Aug 28, 2016 17:11
[2016-08-28 17:23] LABS: APPEARANCE,URINE CLEAR (CLEAR,HAZY); COLOR,URINE YELLOW (YELLOW); OCCULT BLOOD,URINE NEGATIVE (NEGATIVE); UROBILINOGEN,URINE NORMAL (NORMAL)
--- NOTE | 2016-08-28 17:29 | PCM.PNMED ---
Subjective Date of Service Aug 28, 2016 Subjective 65-year-old man with history of orally controlled type II diabetes mellitus ( hemoglobin A1c 9.6%, glargine insulin 120 units per day, Humalog 55 units 3 times a day), CAD on Plavix with stent 2006, hypertension ( atenolol, spironolactone and lisinopril), DASHA was admitted on 08/25 with acute cholecystitis. Plavix was discontinued and he was taken to surgery on 08/28. Intraoperative observations include perforated gallbladder, hepatic bile duct confluence injury with surgical repair, blood loss of approximately 1 L, intraoperative hypotension. Subsequently received 3 units PRBCs. He is transferred to the CCU intubated and sedated from intraoperative anesthesia. He is able to open both eyes spontaneously. Intubated. Exam Vital Signs Vital Sign - Last Date Time Temp Pulse Resp B/P Pulse Ox O2 Delivery O2 Flow Rate FiO2 08/28/16 09:36 36.5 63 16 133/73 96 Room Air Intake and Output 08/27/16 08/27/16 08/28/16 Cumulative From/Thru 15:00 23:00 07:00 08/25/16 16:10 - 08/28/16 05:37 Intake Total 1618 ml 689 ml 6467 ml Output Total 1040 ml 3790 ml Balance 578 ml 689 ml 2677 ml Intake Oral 840 ml 2694 ml IV Total 778 ml 689 ml 3773 ml Output Urine Total 1040 ml 3790 ml # Voids 2 # Bowel Movements 3 3 Exam General: Obese middle-aged man, slightly pale sedated, intubated, HEENT: sclerae anicteric, oral mucosa moist Neck: left IJ CVC Chest: clear to auscultation, symmetric breath sounds, Cardiac: S1S2, no murmur Abdomen: BS normal, soft, right upper quadrant drain; Alves catheter Extremities: No edema Neuro: Face appears symmetric, EOMI, PERRLA, motor tone normal, spontaneous movements bilaterally IVs and Medications Medications Reviewed: Medications were reviewed in detail Lab and Diagnostics Magnesium 1.2 Fibrinogen 268, PTT 27.7, INR 1.12. AST increased from 16 up to 136. Arterial blood gas: DateTimeAnalyzed 17:01:00 -_ pH ____7.465 - 7.350 7.450 pCO2 ___26.3__ -mmHg 35.0 45.0 pO2 120 -mmHg 69.0 116 HCO3- ___18.7__ -mmol/L 22.0 26.0 FIO2 ___60.0__ -% Result Diagram: 08/28/16 1635 08/28/16 1330 X-Rays, CTs and MRIs PROCEDURE: CT ABDOMEN AND PELVIS WITH CONTRAST IMPRESSION: 1. Cholelithiasis with gallbladder wall thickening and pericholecystic inflammation compatible cholecystitis. 2. 2.1 cm enhancing lesion in segment 6 of the liver. Lesion may represent small hemangioma, however a dedicated multiphase CT scan of liver is recommended for definitive characterization of the lesion. 3. Atherosclerosis including the coronary vasculature. Dictated by: Malika Vaca MD, PhD on 08/25/2016 at 18:53 Approved by: Malika Vaca MD, PhD on 08/25/2016 at 18:58 PROCEDURE: X-RAY CHEST ONE VIEW, PORTABLE ([id number]) IMPRESSION: 1. Right mainstem bronchus intubation. 2. Left-sided catheter has been placed, the tip of which is not well seen, and is possibly arterial. Repeat imaging versus blood gas measurements on catheter aspirate recommended. 3. Left basilar atelectasis versus pneumonia. Follow up plain films of the chest are recommended to ensure resolution, and to exclude underlying or central malignancy. 4. Findings discussed with Dr. Chi on 08.28.16 at 1643 hrs. Dictated by: Amber Knapp M.D. on 08/28/2016 at 16:39 12-lead ECG SR, q waves inferiorly - no acute ischemic changes Assessment & Plan 65 year old male with a history of insulin-using diabetes mellitus, CAD with cardiac stent in 2006, hypertension, hyperlipidemia, DASHA, and GERD who presents with cholecystitis, operative course complicated by spontaneous perforated gallbladder, hepatic bile duct surgical perforation repaired, significant intraoperative hypotension and blood loss. Acute and/or high risk problem: #. Acute cholecystitis, present on admission, active. - CT abd/pelvis showed Cholelithiasis with gallbladder wall thickening and pericholecystic inflammation compatible cholecystitis. - Pain management with IV fentanyl drip - Antibiotic ceftriaxone plus metronidazole - Monitor output from MARQUISE drain - Nothing by mouth at present; postoperative abdominal management per surgery service #. Acute blood loss anemia. Acute. No coagulopathy. - Repeat H/H after 3 unit RBC resuscitation - IV lactated Ringer's at 120 mL per hour; increase as needed maintain mean arterial pressure greater than 65 mmHg #. Acute respiratory failure. Intubation due to surgery and operative course. - ETT right mainstem intubation was corrected. Oxygen saturation and clinical exam are normal. No follow-up x-ray needed - ABG reveals mild overventilation; weight is reduced - Plan SBT in a.m. on 08/29 in a.m. if clinical course stabilizes - Ventilation sedation: Propofol, fentanyl #. Acute hyperkalemia, present on admission, active. - No EKG changes with K 6.6 on 08/28 - Hold home Spironolactone and Lisinopril. - Will continue to monitor. - Repeat BMP pending #. History of CAD, chronic, presume stable. - holding Plavix; will resume after patient is clinically stable - Continue ASA, Atorvastatin. - Check serial troponins #. Insulin-using diabetes with peripheral neuropathy, proteinuria, and mild nonproliferative background diabetic retinopathy. Chronic, uncontrolled. - 60 units glargine with Every 6 hours regular insulin 10-20, while nothing by mouth - 4 times a day capillary blood glucose - Glucose control goals: Random less than 180, fasting less than 140, none less than 70 - Insulin as needed, divided 50-50 long-acting and nutritional/correctional - Outpatient total daily insulin dose is 280 units Resolving, stable or chronic problems: #. Abnormal CT, unknown chronicity, present on admission. - CT abd/pelvis also showed a 2.1 cm enhancing lesion in segment 6 of the liver. Lesion may represent small hemangioma, however a dedicated multiphase CT scan of liver is recommended for definitive characterization of the lesion. - AST 44, ALT 93 --> resolved - Follow up as outpatient w PCP Dr. Gamez #. HTN, chronic, stable. - Resume home Atenolol; when necessary labetalol as needed -Resume atenolol, Spironolactone and Lisinopril when stable. #. Hyperlipidemia, chronic, presume stable. - Continue home Atorvastatin #. DASHA, chronic. - Plan to resume CPAP after patient is extubated #. GERD, chronic. -Continue CCU GI prophylaxis with IV Protonix #. DVT prophylaxis - resume after perioperative hemostasis assured #. CODE STATUS: FULL CODE Patient is admitted under inpatient status with expected length of stay greater than 2 midnights due to severity of presenting symptoms, risk of adverse event, and complexity of treatment plan. Dispo pending sx tomorrow and clinical stability thereafter GI Prophylaxis: Proton Pump Inhibitor VTE Prophylaxis: Sub-Q Heparin (Unfractionated) VTE Mechanical Devices: Intermittant Pneumatic CD Resuscitation Status: CPR: Attempt Resuscitation Time spent 50 min, critical care time Ochoa Chi MD Aug 28, 2016 17:29
[2016-08-28] MEDS ORDERED: Magnesium Sulf 4 Gm/100 mL H2O 4 GM in IV Premix 1 EACH IV ONE (17:50)
[2016-08-28] MEDS ORDERED: levoFLOXacin Inj 500 MG in IV Premix 1 EACH IV SCH (18:00)
--- NOTE | 2016-08-28 18:35 | DRSVH ---
PROCEDURE: X-RAY CHEST ONE VIEW, PORTABLE ([id number]) INDICATIONS: Line placement confirmation TECHNIQUE: One view of the chest was acquired. COMPARISON: [facility], CR, XR CHEST 1VW (PORTABLE), 08/28/2016, 16:09. FINDINGS: Surgical changes and devices: Right internal jugular vein central venous catheter is present, tip of which projects over the right brachiocephalic vein. Left-sided catheter has been removed. ETT has bee n withdrawn to T2 location. NGT extends below the level of the film. Lungs and pleura: No pleural effusions or pneumothorax. Lungs are clear. Mediastinum: Mediastinal contours appear normal. Heart size is normal. Bones and chest wall: No suspicious bony lesions. Overlying soft tissues appear unremarkable. IMPRESSION: 1. No complication following right sided venous catheter placement. Dictated by: Amber Knapp M.D. on 08/28/2016 at 18:33 Approved by: Amber Knapp M.D. on 08/28/2016 at 18:34
--- NOTE | 2016-08-28 18:56 | PCM.ANEP2 ---
Post Anesthesia Evaluation ASA/CMS Post Anesthesia VS in Patient's Normal Range?: Yes Resp Stable; Airway Patent?: No CV Function & Hydration Stable: Yes Mental Status Recovered?: No N/V Control Satisfactory?: Yes Additional Comments Intubated on Ventilator Stuart Stevens MD Aug 28, 2016 18:56
[2016-08-28] MEDS: Lactated Ringer's 1,000 ML IV SCH (19:13)
--- NOTE | 2016-08-28 19:20 | NUR ---
Admit to CCU Pt arrived to CCU at aprox 1625. Pt intubated, RASS -3 to -4, SpO2 100%. Placed on ventilator, see RT note. Current vent settings: FiO2 60%, PEEP 5, Vt 500, Rate 16. NSR 70s. SBP low 100s/70s. Pt not requiring vasopressor support. R radial a-line in place, draws easily for labs; correlating closely with cuff pressure. Abd dsg c/d/i. MARQUISE to bulb suction, sanguinous output. Scant bloody output from OGT, Dr. Palma aware. Cox draining small amount lilibeth, clear UOP from cox 60cc from [id number]; Dr. Palma aware, no new orders. L IJ not functioning, anesthesiologist in to evaluate, along with Dr. Chi and Dr. Valladares, unable to get line to fuction. Anesthesiologist d/c'd line. IV therapy in to evaluate for PICC placement, as ordered by Dr. Chi; per DRY CHAIN OFFBEARER pt vessels too small to place line. Dr. Palma in to place R IJ. R triple-lumen IJ placed and confirmed. Afebrile. at bedside.
[2016-08-28] MEDS ORDERED: Insulin Human REGular 100 Units/100 mL NS IV SCH ×2 (20:30)
[2016-08-28] MEDS ORDERED: Insulin Human REGular 300 Unit/3 mL Inj SUBQ SCH (20:30)
--- NOTE | 2016-08-28 20:43 | OP ---
[address] [address] OPERATIVE REPORT PATIENT: DIAMANTE AZAR : 1950 MR#: [id number] ADMIT: 08/25/2016 JOB ID: [id number] DATE OF SURGERY: 08/28/2016 SURGEON: Andrew Palma MD. POWER PLANT ASSISTANT: 1. Ang Burris PA-C. 2. Lamont Yadav MD. ANESTHESIA: General. PREOPERATIVE DIAGNOSIS(ES): Chronic cholecystitis. POSTOPERATIVE DIAGNOSIS(ES): Perforated gallbladder with abscess. Procedure: Laparoscopy converted to open Partial cholecystectomy, repair of common hepatic duct injury, drain placement. Modifier 22 requested. INDICATION FOR PROCEDURE: The patient is a 65-year-old male with abdominal pain and a CT scan finding consistent with cholecystitis with cholelithiasis. The patient was on aspirin and Plavix due to his drug-eluting stent, and his Plavix was held until today. PRINCIPAL FINDING: The undersurface of the liver and gallbladder were completely obscured by omentum upon entry, and upon peeling off the omentum we encountered purulence. It appeared to be a perforation of the gallbladder at the fundus and we could see the gallstone through the perforation.. A hand port was placed to help with dissection thru manual palpation. We were able to dissect from the top down to approximately half of the gallbladder. Consideration was given to performing a partial cholecystectomy at this point, however, I made the decision to convert to an open surgical procedure to try to remove the entire gallbladder. Bleeding from the hepatic artery or a branch of it was encountered , and Dr. Lamont Yadav came in to help. Once we controlled the bleeding from the artery, there was evidence of bile adjacent to the bleeding site. Using a cholangiocatheter we identified this site to be at the confluence of the right and left hepatic duct. Telephone consultation was obtained with Helene Duke, who recommended simple repair of the bile duct injury and a MARQUISE drain was left. The gallbladder was amputated and approximately a quarter to a fifth of the infundibulum was left behind. The GB mucosa was cauterized. PROCEDURE COURSE: The patient was brought to the operating table and underwent general endotracheal anesthesia. The patient had received IV antibiotics and he was provided with SCDs. A time-out was performed. Patient's abdomen was prepped and draped in the usual sterile fashion. Next, local anesthetic was injected into the infraumbilical location and a 5 mm stab incision was made. A Veress needle was used to establish a pneumoperitoneum. Next, a 5 mm trocar was then placed and the laparoscope was introduced. A 12 mm trocar was then placed in the subxiphoid location and two additional 5 mm trocars were then placed in the right lateral abdomen. The omentum was completely adhesed to the undersurface of the liver obscuring the gallbladder. Careful blunt dissection was carried out to free the liver edge from the omentum and we encountered pus. Further dissection by peeling away the omentum from the undersurface of the liver demonstrated a perforated gallbladder and we could see clearly into the gallbladder lumen to see the gallstone. At this point, decision was made to place a hand port in the right upper quadrant location to help with further dissection. I was able to get my hand into the abdomen and with manual blunt dissection and with cautery we were able to do a top-down dissection freeing up the fundus and medial and lateral aspect of the gallbladder to approximately correction down the gallbladder. Consideration was given at this point to performing just a partial cholecystectomy, however, I made the decision to convert to an open surgical procedure. A right upper quadrant incision was made and the liver was retracted cephalad and further dissection around the posterior aspect of the gallbladder was performed. During blunt finger dissection at the back side of the gallbladder at the interface with the liver bed bleeding ensued. Dr. Lamont Yadav was summoned and he came in and helped me control the bleeding. A maria m maneuver was performed and bleeding was controlled using a single stitch of Prolene suture. However, just adjacent to the bleeding site we could see a small hole with some eminence of bile. Using the cholangiocatheter we were able to perform a cholangiogram through this small opening and that demonstrated right and left hepatic ducts going up, and also contrast going down the common bile duct into the duodenum. The hole that we saw is likely to be right at the confluence of the right and left hepatic duct. Telephone consultation was obtained with Helene Duke, who recommended that we over-sew the site of injury and leave a drain. This was able to be accomplished using a single suture of 5-0 Prolene in a U-shaped fashion. FloSeal was placed right on top of it. Now, we turned our attention to the gallbladder specimen. The gallbladder was then amputated leaving approximately a quarter to a fifth of the infundibulum behind and the specimen was sent to Pathology. The mucosa of the remnant gallbladder was cauterized using argon beam. The liver bed was also cauterized with argon beam as well. Next, the abdomen was then irrigated with saline and suctioned out. An OG tube was placed by Anesthesia. Next, a Delonte-Coles drain was introduced from the right lateral port site and placed into the subhepatic space adjacent to the site of bile duct repair. Next, the right upper quadrant open incision was then closed from both ends using #1 PDS suture and the sutures were then tied at the midline. The subcutaneous tissue was also closed using interrupted Vicryl sutures. The drain was secured to the skin using a nylon suture. The drain was connected to a bulb suction device. The skin edges were then reapproximated using demarcus. At the end of procedure, needle counts and sponge counts were correct. The patient will receive a left IJ by Anesthesia at the end the case. A Alves catheter was also provided to the patient at the end of the case. Patient received 3 units of PRBCs during the case. CHANTELLE
[2016-08-28] MEDS ORDERED: Insulin GLARgine 100 Unit/mL Syringe SUBQ SCH (21:00)
--- NOTE | 2016-08-28 21:34 | OP ---
[address] [address] OPERATIVE REPORT PATIENT: DIAMANTE AZAR : 1950 MR#: [id number] ADMIT: 08/25/2016 JOB ID: [id number] DATE OF SURGERY: 08/28/2016 SURGEON: Andrew Palma MD. ANESTHESIA: Local. PREOPERATIVE DIAGNOSIS(ES): Need for central line access. POSTOPERATIVE DIAGNOSIS(ES): Need for central line access. PROCEDURE: Right IJ triple-lumen catheter placement. INDICATION FOR PROCEDURE: The patient is a 65-year-old male who underwent an open partial cholecystectomy procedure earlier today. The patient had a left IJ placed by anesthesia, but it was not functional. I was requested by the hospitalist team and anesthesia service for central access. OPERATIVE FINDING: Successful placement of a triple-lumen catheter via the right IJ approach with ultrasound assistance. PROCEDURE COURSE: The patient was placed in a Trendelenburg position, exposing his right neck. The area was ultrasounded and it demonstrated a patent internal jugular vein. The right neck was then prepped and draped in the usual sterile fashion. Next, local anesthetic was injected and using the ultrasound live we placed the needle directly into the right IJ under direct visualization. Dark blood was aspirated. The guidewire was advanced easily. Using Seldinger technique, the right IJ triple-lumen catheter was then placed into the right IJ and it rested at 12 cm at the skin. All three ports aspirated blood very easily and it was flushed with saline. The IV nurse then took over and secured the line at the right neck. A chest x-ray will be obtained to verify placement. By the end of procedure, needle counts and sponge counts were correct.
--- NOTE | 2016-08-28 22:16 | PROCED ---
[address] [address] PROCEDURE NOTE PATIENT: DIAMANTE AZAR : 1950 MR#: [id number] ADMIT: 08/25/2016 JOB ID: [id number] DATE OF SERVICE: PREOPERATIVE DIAGNOSIS(ES): POSTOPERATIVE DIAGNOSIS(ES): SURGEON: PROCEDURE: Triple lumen left central line placement. At the conclusion of surgery in the operating room the patient's IJ was visualized under direct ultrasound guidance. Using a sterile Seldinger technique, the patient's vessel was cannulated on the second attempt. After wire placement, a single lumen catheter was placed and attached to 2 foot tubing to check for pulsatile flow and fluid column. The patient's blood pressure at this point was above 120 systolic. A Steady fluid column of blood was noted approximately 6 inches above the insertion site. It was not pulsating. At this point, using sterile Seldinger technique, a triple lumen was placed. When the patient was in the Trendelenburg position, the triple lumen was easy to withdraw from all three ports and easy to inject, however, in the recumbent position, the patient's catheter was no longer able to do this. Sterile dressing was placed. The patient was taken to intensive care unit and placed on the ventilator. By pulling back on the catheter a centimeter I was able to slowly withdraw on all but the distal lumen. I was called by IV therapy later stating that they were unable to place a PICC line. They had examined the triple lumen catheter and felt this had been placed in the EJ. I was then able to withdraw from two of the ports with difficulty and the decision was made to remove it. A small gauze was applied. There was good hemostasis. No hematoma. Dr. Palma offered to place a right central venous catheter, which was done shortly after this. [facility] CENTERJolene
[2016-08-28 22:56] LABS: Magnesium 2.4 mg/dL (1.6-2.6)
[2016-08-29] VITALS (14 sets, daily range): BP systolic 90–116; BP diastolic 50–62; PULSE 75–96; RESP 16–23; O2SAT 94–100
[2016-08-29] MEDS: metroNIDAZOLE Inj 500 MG in IV Premix 1 EACH IV SCH ×3 (00:36→18:23)
[2016-08-29] MEDS: Propofol Inj 1,000,000 MCG in IV Premix 1 EACH IV SCH (00:36)
[2016-08-29] MEDS: Chlorhexidine 0.12% 15 mL Oral Solution MT SCH ×6 (00:36→20:30)
[2016-08-29] MEDS: Lactated Ringer's 1,000 ML IV SCH ×3 (01:57→14:03)
[2016-08-29] MEDS ORDERED: 0.9% Sodium Chloride 500 ML IV PRN (03:40)
[2016-08-29 03:43] LABS: Mean Corpuscular Hemoglobin 28.4 pg (27.0-35.0); Mean Corpuscular Volume 85.1 fL (81-100)
[2016-08-29 04:00] LABS: INR 1.08 ratio
--- NOTE | 2016-08-29 04:03 | ABG ---
DateTimeAnalyzed 03:58:00 -_ pH ____7.447 - 7.350 7.450 pCO2 ___28.4__ -mmHg 35.0 45.0 pO2 154 -mmHg 69.0 116 HCO3- ___19.3__ -mmol/L 22.0 26.0 ABE ___-3.4__ -mmol/L -2.0 2.0 tHb ___10.8__ -g/dL O2Hb ___97.5__ -% COHb ____0.8__ -% MetHb ____0.9__ -% sO2 ___99.2__ -% 25.0 FIO2 ___60.0__ -% PEEP ____5.0__ -cmH2O Set_RR ___16.0__ -b/min Vt __500.0__ -L Drawn By cf - Date/Time Notified____ 04:01:00 -_ Oxygen Device 1 VENTILATOR - Notified By cf - Notified Whom ___Dr. Chi - B 754 -mmHg tO2 ___15.1__ -Vol% Addy test N/A -
--- NOTE | 2016-08-29 07:33 | NUR ---
uop/cvp /labs md aware of k+ level at beginning of shift of 6.8, now down to 5.1 this am, insulin gtt per non dka protocol started along with dextrose source, see flow sheet for bg results, ns 500ml boluses given prn during night for low uop, cvp trending down from 15 to 9 and bp trending down without fluids, h/h stable, elizabeth with thin sang output= 200ml during the night, aware of low uop and boluses given, weak pulses t/o, scds on, turn q2hrs as able, pt able to help minimally with turning, pt calm on vent with propofol at 10mcg/kg/min and fentanyl gtt 50mcg/hr, pt opens eyes to voice and nods/shakes head to questions, fio2=.60 down to .40 this am post abg's, sx sml amount thin whitish sputum per ett, oral care done, ls- course, hob up, cxr done this am, tele= sr, hr 70's, right radial a line intact--more positional this am, hypoactive bt's, abd round/soft, pt denies pain, elizabeth to right lq, 200ml thin sang output, ogt placement =wnl, lis, no bm, right ij intact, see ccu flow sheet, plan:wean vent as able, monitor uop, monitor postop,
[2016-08-29] MEDS ORDERED: cefTRIAXone Inj 1,000 MG in Dextrose 5% Minibag Plus 50 ML IV SCH (08:00)
[2016-08-29 08:13] LABS: BASOPHILS % (AUTO) 0.1 % (0-3); EOSINOPHILS % (AUTO) 0 % (0-5); MONOCYTES % (AUTO) 7.8 % (4-12); NEUTROPHILS % (AUTO) 84.8 % (40-74)
--- NOTE | 2016-08-29 08:30 | PCM.PNSURG ---
Subjective Date of Service: Aug 29, 2016 Visit Information: Reason for Visit: Cholecystitis Surgery/Surgery Date: Laparoscopy converted to open partial cholecystectomy/ Aug 28, 2016 Post-Op Day # 1 Date of Admission: Aug 25, 2016 at 22:16 Hospital Day #5 Subjective: Pt intubated and minimally sedated, able to follow basic commands. Pain appears well controlled. Pain Management: Good Pain Control Objective Vital Sign- Last 8 Hours Date Time Temp Pulse Resp B/P Pulse Ox O2 Delivery O2 Flow Rate FiO2 08/29/16 04:04 40 08/29/16 04:00 Ventilator 08/29/16 04:00 36.6 79 16 108/50 99 Mechanical Ventilator 40 08/29/16 03:23 77 103/50 100 60 08/29/16 00:00 36.7 77 16 106/58 100 Mechanical Ventilator 60 08/29/16 00:00 Ventilator 08/28/16 23:58 79 107/59 100 60 Intake and Output- Last 8 Hour 08/29/16 Cumulative From/Thru 07:00 08/25/16 16:10 - 08/29/16 06:31 Intake Total 4075 ml 10538 ml Output Total 490 ml 7935 ml Balance 3585 ml 7535 ml Intake Oral 3130 ml IV Total 4075 ml 71655 ml Autotransfusion 750 ml Platelets 220 ml Output Urine Total 215 ml 6590 ml Gastric Drainage Total 75 ml 75 ml Drainage Total 200 ml 270 ml Estimated Blood Loss 1000 ml # Voids 7 # Bowel Movements 0 6 General: Alert, Oriented X3 Lungs: Clear to Auscultation Heart: Exam Unremarkable Abdomen: Soft (hypoactive bowel tones), Distended (mildy) Extremities: Distal Pulses Palpable, Warm Neuro: Grossly Neurologically Intact Catheters: Urethral 2 Way Alves Result Diagram: 08/29/1631408/29/16314 Lab & Micro Results: Laboratory Tests Test 08/28/16 12:28 08/28/16 13:30 08/28/16 15:20 08/28/16 16:35 Hemoglobin 11.6g/dL (13.8-17.2) 8.9g/dL (13.8-17.2) 12.3g/dL (13.8-17.2) Hematocrit 36.5% (41.0-50.0) 28.6% (41.0-50.0) 36.1% (41.0-50.0) White Blood Count 18.5th/mm3 (3.8-10.1) 28.4th/mm3 (3.8-10.1) Red Blood Count 3.34mil/mm3 (4.40-5.80) 4.25mil/mm3 (4.40-5.80) Mean Corpuscular Volume 85.6fL (81-100) 84.9fL (81-100) Mean Corpuscular Hemoglobin 26.6pg (27.0-35.0) 28.9pg (27.0-35.0) Mean Corpuscular Hemoglobin Concent 31.1% (32.0-37.0) 34.1% (32.0-37.0) Red Cell Distribution Width 14.8% (12.3-15.4) 14.2% (12.3-15.4) Platelet Count 394bil/L (150-400) 334bil/L (150-400) Neutrophils (%) (Auto) 76.3% (40-74) 88.5% (40-74) Lymphocytes (%) (Auto) 15.9% (14-46) 3.8% (14-46) Monocytes (%) (Auto) 5.3% (4-12) 6.9% (4-12) Eosinophils (%) (Auto) 0.9% (0-5) 0% (0-5) Basophils (%) (Auto) 0.2% (0-3) 0.1% (0-3) Prothrombin Time 12.0sec (8.1-12.5) Prothromb Time International Ratio 1.12ratio Activated Partial Thromboplast Time 27.7sec (22.8-33.0) Fibrinogen 268mg/dL (157-380) Sodium Level 136mEq/L (134-144) 136mEq/L (134-144) Potassium Level 6.6mEq/L (3.5-5.2) 5.8mEq/L (3.5-5.2) Chloride Level 105mEq/L (97-108) 106mEq/L (97-108) Carbon Dioxide Level 18mmol/L (18-29) 17mmol/L (18-29) Blood Urea Nitrogen 10mg/dL (8-27) 11mg/dL (8-27) Creatinine 0.91mg/dL (0.76-1.27) 0.62mg/dL (0.76-1.27) Estimat Glomerular Filtration Rate 89mL/min (>59) 139mL/min (>59) Glucose Level 340mg/dL (60-99) 213mg/dL (60-99) Calcium Level 7.1mg/dL (8.5-10.1) 7.0mg/dL (8.5-10.1) Magnesium Level 1.2mg/dL (1.6-2.6) Total Bilirubin 0.3mg/dL (0.0-1.2) 2.2mg/dL (0.0-1.2) Aspartate Amino Transf (AST/SGOT) 136U/L (0-50) 134U/L (0-50) Alanine Aminotransferase (ALT/SGPT) 86U/L (0-44) 95U/L (0-44) Alkaline Phosphatase 132U/L (25-160) 130U/L (25-160) Total Protein 3.6g/dL (6.4-8.4) 4.2g/dL (6.4-8.4) Albumin 1.8g/dL (3.4-5.0) 2.0g/dL (3.4-5.0) Urine Color Yellow (YELLOW) Urine Appearance Clear (CLEAR,HAZY) Urine pH 6.0 (5.0-8.0) Urine Specific [place] 1.020 (1.003-1.035) Urine Protein Tracemg/dL (NEG,TRACE) Urine Glucose (UA) 250mg/dL (NEGATIVE) Urine Ketones Negativemg/dL (NEGATIVE) Urine Occult Blood Negative (NEGATIVE) Urine Nitrite Negative (NEGATIVE) Urine Bilirubin Negative (NEGATIVE) Urine Urobilinogen Normalmg/dL (NORMAL) Urine Leukocyte Esterase Negative (NEGATIVE) Urine RBC 0-2/hpf (0-2) Urine WBC 6-10/hpf (0-5) Urine Epithelial Cells Few/hpf (NONE-MOD) Urine Crystals None seen (NONE SEEN) Urine Bacteria Few/hpf (NONE-FEW) Urine Hyaline Casts None/lpf (NONE) Urine Granular Casts None seen (NONE SEEN) Urine Waxy Casts None seen (NONE SEEN) Urine Red Blood Cell Casts None seen (NONE SEEN) Urine White Blood Cell Casts None seen (NONE SEEN) Urine Mucus Present (None Seen) Urine Trichomonas None seen (NONE SEEN) Urine Yeast None (NONE SEEN) Urinalysis Comment None Urine Culture Reflexed Indicated Troponin T < 0.010ug/L (0.0-0.011) Test 08/28/16 17:05 08/28/16 18:48 08/28/16 20:20 08/28/16 22:00 Sodium Level 134mEq/L (134-144) 135mEq/L (134-144) Potassium Level 6.8mEq/L (3.5-5.2) 5.7mEq/L (3.5-5.2) Chloride Level 104mEq/L (97-108) 105mEq/L (97-108) Carbon Dioxide Level 16mmol/L (18-29) 16mmol/L (18-29) Blood Urea Nitrogen 13mg/dL (8-27) 14mg/dL (8-27) Creatinine 0.69mg/dL (0.76-1.27) 0.79mg/dL (0.76-1.27) Estimat Glomerular Filtration Rate 123mL/min (>59) 105mL/min (>59) Glucose Level 216mg/dL (60-99) 215mg/dL (60-99) Calcium Level 7.2mg/dL (8.5-10.1) 7.2mg/dL (8.5-10.1) Hemoglobin 12.5g/dL (13.8-17.2) Hematocrit 37.0% (41.0-50.0) Magnesium Level 2.4mg/dL (1.6-2.6) Test 08/29/16 03:15 White Blood Count 19.0th/mm3 (3.8-10.1) Red Blood Count 3.63mil/mm3 (4.40-5.80) Hemoglobin 10.3g/dL (13.8-17.2) Hematocrit 30.9% (41.0-50.0) Mean Corpuscular Volume 85.1fL (81-100) Mean Corpuscular Hemoglobin 28.4pg (27.0-35.0) Mean Corpuscular Hemoglobin Concent 33.3% (32.0-37.0) Red Cell Distribution Width 14.5% (12.3-15.4) Platelet Count 304bil/L (150-400) Prothrombin Time 11.6sec (8.1-12.5) Prothromb Time International Ratio 1.08ratio Sodium Level 136mEq/L (134-144) Potassium Level 5.1mEq/L (3.5-5.2) Chloride Level 108mEq/L (97-108) Carbon Dioxide Level 16mmol/L (18-29) Blood Urea Nitrogen 15mg/dL (8-27) Creatinine 1.03mg/dL (0.76-1.27) Estimat Glomerular Filtration Rate 77mL/min (>59) Glucose Level 149mg/dL (60-99) Lactic Acid Level 1.0mmol/L (0.4-2.0) Calcium Level 7.1mg/dL (8.5-10.1) Total Bilirubin 0.8mg/dL (0.0-1.2) Aspartate Amino Transf (AST/SGOT) 69U/L (0-50) Alanine Aminotransferase (ALT/SGPT) 80U/L (0-44) Alkaline Phosphatase 115U/L (25-160) Troponin T 0.010ug/L (0.0-0.011) Total Protein 3.9g/dL (6.4-8.4) Albumin 1.7g/dL (3.4-5.0) Microbiology 08/28/16 MRSA (PCR), Received Pending 08/28/16 Urine Culture, Received Pending Diagnostics: PROCEDURE: X-RAY CHEST ONE VIEW, PORTABLE ([id number]) INDICATIONS: Line placement confirmation TECHNIQUE: One view of the chest was acquired. COMPARISON: [facility], CR, XR CHEST 1VW (PORTABLE), 08/28/2016, 16: 09. FINDINGS: Surgical changes and devices: Right internal jugular vein central venous catheter is present, tip of which projects over the right brachiocephalic vein. Left-sided catheter has been removed. ETT has been withdrawn to T2 location. NGT extends below the level of the film. Lungs and pleura: No pleural effusions or pneumothorax. Lungs are clear. Mediastinum: Mediastinal contours appear normal. Heart size is normal. Bones and chest wall: No suspicious bony lesions. Overlying soft tissues appear unremarkable. IMPRESSION: 1. No complication following right sided venous catheter placement. Dictated by: Amber Knapp M.D. on 08/28/2016 at 18:33 Approved by: Amber Knapp M.D. on 08/28/2016 at 18:34 Assessment & Plan Impression 65 y/o male with a hx of CAD s/p BEATRIZ into LAD in 2006 on chronic aspirin/plavix therapy who presented to [facility] from Urgent Care c/o worsening abdominal pain and bloating for the last several weeks. Now on post-operative day #1 from Laparoscopy converted to open partial cholecystectomy,repair of common hepatic duct injury, and drain placement with intraoperative hypotension and approximately 1L blood loss s/p transfusion of 3 units PRBCs. Problems: Plan -Ventilator management/SBT per ICU team -H/H stable, 10.3/30.8 s/p transfusion of 3unitis pRBCs, will continue to monitor. -Liver enzymes elevated but trending down (AST 69, ALT 80), total bili wnl at 0.8. -Continue MARQUISE drain -Hold plavix -Will reevaluate later today after breathing trial/possible extubation. VTE Prophylaxis: SCDs Resuscitation Status: CPR: Attempt Resuscitation Attending Statement: I examined the pt and I agree with Dr. Mosquera's assessment and plan. Monitor LFT's. Elvie Mosquera DO Aug 29, 2016 07:59 Andrew Palma MD Sep 02, 2016 15:16
--- NOTE | 2016-08-29 08:34 | DRSVH ---
PROCEDURE: X-RAY CHEST ONE VIEW, PORTABLE ([id number]) INDICATIONS: f/u ET tube TECHNIQUE: One view of the chest was acquired. COMPARISON: [facility], CR, XR CHEST 1VW (PORTABLE), 08/28/2016, 18:08. FINDINGS: Surgical changes and devices: Stable position ETT, nasogastric tube and right IJ CVL. Right upper qu adrant surgical drain and laparotomy demarcus present. Lungs and pleura: No pneumothorax.. Bibasilar airspace opacities present, left greater than right. Small left pleural effusion.. Mediastinum: Mediastinal contours appear normal. Heart size is normal. Bones and chest wall: No suspicious bony lesions. Overlying soft tissues appear unremarkable. IMPRESSION: 1. Stable support lines and tubes. 2. Bibasilar atelectasis versus aspiration or pneumonia. Correlate clinically. 3. Small pleural effusion unchanged. Dictated by: Chon Sellers RRA Interpreted: Malika Vaca MD on 08/29/2016 at 8:33 Transcribed by: AMBAR on 08/29/2016 at 8:34 Approved by: Malika Vaca MD, PhD on 08/29/2016 at 18:05
[2016-08-29] MEDS ORDERED: Furosemide 10 mg/mL 2 mL Inj IVPUSH ONE (09:20)
[2016-08-29] MEDS: Brimonidine-Timolol 5 mL Ophthalmic Solution BOTH_EYES SCH ×2 (09:47→21:00)
[2016-08-29] MEDS: Pantoprazole 4 mg/mL 10 mL Inj IVPUSH SCH ×2 (09:47→18:14)
[2016-08-29] MEDS: Heparin 5,000 Unit/mL Inj SUBQ SCH ×2 (10:01→18:23)
[2016-08-29] MEDS: cefTRIAXone Inj 2,000 MG in Dextrose 5% Minibag Plus 50 ML IV SCH (10:12)
[2016-08-29] MEDS: Ondansetron 2 mg/mL 2 mL Inj IVPUSH PRN ×2 (13:25→15:11)
--- NOTE | 2016-08-29 13:30 | PCM.CHPMED ---
Subjective Date of Service: Aug 29, 2016 Provider requesting consult: Ochoa Chi MD Primary Physician: Admitting Physician: Vic Weber MD Primary Care Physician: Lennox Gamez DO Attending Physician: Vic Weber MD Chief Complaint: Chief Complaint: Acute respiratory Failure. History of Present Illness: Pulmonology Consult: Attending physician Dr. Hogan, Requesting Provider Dr. Chi. Reason for consult Acute hypoxic Respiratory failure. Mr. March is a 65 year old male with a past medical history of diabetes type II, CAD s/p BEATRIZ placement 2006 on chronic anticoagulation, hypertension, DASHA who was admitted on 08/25/2016 from with acute cholecystitis requiring surgical intervention. Patient underwent laparoscopic cholecystectomy which was converted into a an open partial cholecystectomy and hepatic bile duct confluence injury requiring surgical repair and had intraoperative blood loss of ~ 1L. Subsequently received 3 units of PRBC's and was transferred for to this ICU intubated and sedated from the surgical floor. At time of exam/interview patient is intubated with minimal sedation, is at bedside. He is able to open both eyes and respond to questions appropriately by shaking or nodding his head. Overall he states he is in minimal pain with expressed wish to have his breathing tube removed. Review of Systems: PT intubated, will shake his head no when asked about discomfort. Will nod his head yes expressing his wish to have his breathing tube removed. PMH Past Medical History Per [facility] Osteoarthritis Hyperlipidemia Dyshidrotic eczema Postnasal drip Hypertension Diabetes mellitus type II Obesity DASHA CAD status post drug-eluting stent to LAD Bedside Blood Glucose: 192 Surgical History Cardiac Surgery (HEART CATH W/ BEATRIZ IN LAD 02/2007) Lumbar Neck surgery Reports: Cataract surgery Home Medications Per [facility]: Combigan eyedrops Omeprazole magnesium 20 mg tablet twice a day Vitamin B complex 1 tablet daily Aspirin 81 mg daily Triamcinolone acetonide 0.1% topical cream twice a day Gabapentin 400 mg 3 capsules 3 times a day Plavix 75 mg daily Atenolol 25 mg daily Lisinopril 40 mg daily Toujeo SoloStar 300 units/ml , injects subcutaneously at 120 units every morning Victoza 1.2mg subcutaneously daily Atorvastatin 10 mg at bedtime Spironolactone 25 mg daily Allergies: Coded Allergies: Penicillins (Verified Allergy, Severe, anaphylaxis, 08/25/16) hydrocodone (Verified Allergy, Severe, stomach ache, 08/25/16) TAPE (Verified Allergy, Intermediate, rash, 08/25/16) surgical tape only codeine (Verified Allergy, Unknown, UNKNOWN, 08/25/16) Uncoded Allergies: ARM BRACE (NEOPRENE) (Adverse Reaction, Severe, ITCH, RASH, 12/16/15) Family History Family History Mother with cholecystitis, DM, and HTN. Social History Hx Alcohol Use: NoHx Substance Use: No Smoking Status: Former Smoker (quit > 30yrs ago) Living Arrangement: with Family Exam Vital Signs Vital Sign - Last Date Time Temp Pulse Resp B/P Pulse Ox O2 Delivery O2 Flow Rate FiO2 08/29/16 11:00 88 93/54 99 40 08/29/16 10:30 18 08/29/16 04:00 Ventilator 08/29/16 04:00 36.6 Intake and Output 08/28/16 08/28/16 08/29/16 Cumulative From/Thru 15:00 23:00 07:00 08/25/16 16:10 - 08/29/16 06:31 Intake Total 4906 ml 22 ml 4075 ml 28502 ml Output Total 2525 ml 1130 ml 490 ml 7935 ml Balance 2381 ml -1108 ml 3585 ml 7535 ml Intake Oral 436 ml 3130 ml IV Total 3500 ml 22 ml 4075 ml 48298 ml Autotransfusion 750 ml 750 ml Platelets 220 ml 220 ml Output Urine Total 2525 ml 60 ml 215 ml 6590 ml Gastric Drainage Total 0 ml 75 ml 75 ml Drainage Total 70 ml 200 ml 270 ml Estimated Blood Loss 1000 ml 1000 ml # Voids 5 7 # Bowel Movements 3 0 6 Additional Information: Time of exam patient intubated on ventilator. General: No acute distress, well-developed, well-nourished, appropriately interactive. Opens eyes to voice and will follow commands. HEENT: Normocephalic, atraumatic. External ears without defect. Pupils equal, round, and reactive to light and accommodation. ET tube in place Neck: Supple with full range of motion, good by ET tube. No jugular venous distension. Cardiovascular: Regular rate and rhythm with no murmurs, rubs, or gallops appreciated Pulmonary: Clear to auscultation bilaterally with no crackles, wheezes. Abdomen: Bowel tones present. Soft to palpation tender right upper and lower quadrants. Bandage in place and intact with MARQUISE drain holding red tinged fluid. Extremities: No clubbing, cyanosis or edema appreciated Neurological: Cranial nerves grossly intact. Though patient intubated which limits full neuro exam. Psychiatric: Patient able to open eyes to voice and follow commands Ventilator settings: Tidal volume. 500 Respiratory rate 16. FiO2 0.4. PEEP 5. ABG: PH 7.447, PCO2 28.4, PO2 154, HCO3 19 IV drips and Sedatives: Fentanyl 20, propofol 10 IV lines: Right [place]: [place] [address], out 7957, total 7535 Lab and Diagnostics Result Diagram: 08/29/1631408/29/16314 X-Rays, CTs and MRIs . CT ABDOMEN AND PELVIS WITH CONTRAST IMPRESSION: 1. Cholelithiasis with gallbladder wall thickening and pericholecystic inflammation compatible cholecystitis. 2. 2.1 cm enhancing lesion in segment 6 of the liver. Lesion may represent small hemangioma, however a dedicated multiphase CT scan of liver is recommended for definitive characterization of the lesion. 3. Atherosclerosis including the coronary vasculature. Dictated by: Malika Vaca MD, PhD on 08/25/2016 at 18:53 X-RAY OPERATIVE CHOLANGIOGRAM IMPRESSION: 1. Moderate narrowing and irregularity of the proximal aspect of the common bile duct. This could be further assessed with ERCP, if clinically indicated. Dictated by: Amber Knapp M.D. on 08/28/2016 at 14:52 X-RAY CHEST ONE VIEW, PORTABLE IMPRESSION: 1. Right mainstem bronchus intubation. 2. Left-sided catheter has been placed, the tip of which is not well seen, and is possibly arterial. Repeat imaging versus blood gas measurements on catheter aspirate recommended. 3. Left basilar atelectasis versus pneumonia. Follow up plain films of the chest are recommended to ensure resolution, and to exclude underlying or central malignancy. 4. Findings discussed with Dr. Chi on 08.28.16 at 1643 hrs. Dictated by: Amber Knapp M.D. on 08/28/2016 at 16:39 X-RAY CHEST ONE VIEW, PORTABLE IMPRESSION: 1. No complication following right sided venous catheter placement. Dictated by: Amber Knapp M.D. on 08/28/2016 at 18:33 X-RAY CHEST ONE VIEW, PORTABLE IMPRESSION: 1. Stable support lines and tubes. 2. Bibasilar atelectasis versus aspiration or pneumonia. Correlate clinically. 3. Small pleural effusion unchanged. Dictated by: Chon COPPOLA Interpreted: Malika Vaca MD on 08/29/2016 at 8:33 Additional Diagnostics: DateTimeAnalyzed 03:58:00 -_ pH ____7.447 - 7.350 7.450 pCO2 ___28.4__ -mmHg 35.0 45.0 pO2 154 -mmHg 69.0 116 HCO3- ___19.3__ -mmol/L 22.0 26.0 Assessment & Plan Assessment Mr. March is a 65 year old male with a past medical history of diabetes type II, CAD s/p BEATRIZ placement 2006 on chronic anticoagulation, hypertension, DASHA who was transferred to ICU from surgical floor status post cholecystectomy with intraoperative complications of spontaneous perforated gallbladder and hepatic bile duct perforation repair. Pt had significant intraoperative hypotension and blood loss. Pt transferred to the to ICU intubated and sedated. 1. Acute respiratory failure, Pt intubated and sedated prior to surgical course. - ABG 08/29/2016 showed pH 7.447, pCO2 28.4, PO2 154, HCO3 19.3 suggesting overventilation. - Pt successfully passed his SBT today and was subsequently extubated. 2. Acute cholecystitis, present on admission, active. s/p cholecystectomy. - MARQUISE drain in place - IV fentanyl drip for Px management - Antibiotic ceftriaxone plus metronidazole - Surgery following 3. Acute blood loss anemia. Acute. - Continue to monitor H&H - IV LR 120 mL per hour. Pt remains hypotensive 90's/50's though MAP remains above 65. - Pt remains off of blood pressure support - Continue to monitor Problems: Pain Evaluation: Adequate Pain Control GI Prophylaxis: Proton Pump Inhibitor VTE Prophylaxis Indicated: Meets Criteria for Anticoag Therapy VTE Prophylaxis: SCDs VTE Mechanical Devices: Intermittant Pneumatic CD Resuscitation Status: CPR: Attempt Resuscitation Attending Statement I have seen and examined this patient with the resident physician. Vital signs , labs, imaging have been reviewed. I agree with the assessment and plan above. Please refer to my separately dictated progress note for any modifications to above. Elinor Hogan M.D. Pulmonary and Critical Care medicine Pager [phone] JONAS YAO DO Aug 29, 2016 13:30 Elinor Hogan MD Aug 30, 2016 08:10 - Outpatient total daily insulin dose is 280 units Resolving, stable or chronic problems: #. Abnormal CT, unknown chronicity, present on admission. - CT abd/pelvis also showed a 2.1 cm enhancing lesion in segment 6 of the liver. Lesion may represent small hemangioma, however a dedicated multiphase CT scan of liver is recommended for definitive characterization of the lesion. - AST 44, ALT 93 --> resolved - Follow up as outpatient w PCP Dr. Gamez #. HTN, chronic, stable. - Resume home Atenolol; when necessary labetalol as needed -Resume atenolol, Spironolactone and Lisinopril when stable. #. Hyperlipidemia, chronic, presume stable. - Continue home Atorvastatin #. DASHA, chronic. - Plan to resume CPAP after patient is extubated #. GERD, chronic. -Continue CCU GI prophylaxis with IV Protonix #. DVT prophylaxis - resume after perioperative hemostasis assured Problems: Pain Evaluation: Adequate Pain Control GI Prophylaxis: Proton Pump Inhibitor VTE Prophylaxis Indicated: Meets Criteria for Anticoag Therapy VTE Prophylaxis: SCDs VTE Mechanical Devices: Intermittant Pneumatic CD Resuscitation Status: CPR: Attempt Resuscitation JONAS YAO DO Aug 29, 2016 13:30
--- NOTE | 2016-08-29 13:40 | NUR ---
NUTRITION ASSESSMENT Assess: 65 YO M admitted to CCU for cholecystitis requiring intubation d/t surgery with hypertensive shock. Per CCU rounds, plan for pressure support trials and possible extubation. Pt has been NPO X 2 day. PMHX: Type 2 DM, OA, HLD, dyshidrotic eczema, HTN, DASHA. DIET: NPO. Previous PO on Full liquids: 75-100%. LABS: Glu 149, Ca 7.1, AST 69, ALT 80, Alb 1.7 MEDICATIONS: Reviewed. Insulin, Propofol, Fentanyl GI: 2 BM 08/28. SKIN: No issues noted. ANTHROPOMETRICS: Wt: 100.6, BMI 34. Kg/m2, Admit wt: 93.2 kg, IBW: 67.3 kg ESTIMATED NEEDS: VENT/BMI Calories: 3251-3876 kcal/day (20-22 kcal/kg BW) Protein: 101-121 g/day (1.5-1.8 g/kg IBW) NUTRITION DIAGNOSIS: 1) Inadequate oral intake related to decreased ability to consume sufficient energy as evidenced by NPO/Vent status. INTERVENTION: 1) Will await plan of care decisions. If pt remains intubated, recommend starting nutrition support in the next 24 hours. MONITOR/EVALUATE: NPO/Vent status, labs, POC, GI, nutrition status. Follow per high nutrition risk guidelines.
--- NOTE | 2016-08-29 14:03 | CONS ---
[address] [address] CONSULTATION REPORT PATIENT: DIAMANTE AZAR : 1950 MR#: [id number] ADMIT: 08/25/2016 JOB ID: [id number] DATE OF SERVICE: 08/29/2016 PULMONARY CRITICAL CARE CONSULTATION NOTE: The patient is a 65-year-old man seen in consultation at the request of Dr. Chi for acute postoperative respiratory failure status post complicated cholecystectomy. The patient was seen and evaluated with resident physician, Hubert Boston. Please refer to his separate detailed note for additional information. HISTORY OF PRESENT ILLNESS: The patient is a 65-year-old man with history of diabetes and coronary artery disease, as well as obstructive sleep apnea who was admitted to the hospital on August 25 with abdominal pain thought to be due to cholecystitis. He was on Plavix, however, and for that reason, cholecystectomy was delayed for three days. He had Plavix held from August 25 until August 28 and underwent cholecystectomy yesterday. All of the history above is obtained from review of electronic medical record because the patient is intubated and unable to provide this information. His laparoscopic cholecystectomy was converted to open partial cholecystectomy. There was evidence of a perforated gallbladder seen on laparoscopic evaluation. There was also injury to common hepatic duct that was repaired and a drain was placed. The patient arrived from the operating room after having received 4 units of blood, three during the case and one after. He was also on pressors which were weaned off by the end of the day yesterday. He was left intubated for all these reasons. Past medical history, family history, social history and review of systems could not be obtained as the patient is intubated. Past medical history is reportedly notable for: 1. Diabetes. 2. Coronary artery disease, status post stent in 2006. 3. Obstructive sleep apnea. 4. Hypertension. 5. Hyperlipidemia. PHYSICAL EXAMINATION: Vital signs reviewed. Temperature 36.6, pulse 83, respirations 16, BP 90/56, sats 100% on 40% FiO2. General: Intubated, sedated, but opening his eyes to voice. Chest is clear. Neck: No cervical lymphadenopathy. HEENT: Oral mucosa is moist. No scleral icterus. ET tube is in place. Abdomen: He has a large, clean bandage on the right upper quadrant. He has a single MARQUISE drain with bulb putting out serosanguineous appearing fluid. Extremities: No cyanosis, clubbing, edema. Heart: Regular rate and rhythm. No murmurs. LABORATORIES: Reviewed. WBC down to 19 from 28, hemoglobin is 10. Chemistry also reviewed and within normal limits. Potassium is notable for being 5.1, albumin is down 1.7 from 3.3 previously. Cultures: No growth. Chest x-ray is normal. Arterial blood gas from this morning shows pH of 7.44, pCO2 of 28, pO2 of 154 and bicarbonate of 19.3. ASSESSMENT AND RECOMMENDATIONS: 1. Acute postoperative respiratory failure. 2. Perforated cholecystitis status post open cholecystectomy on August 28 with repair of common hepatic duct injury. 3. Septic shock-resolved. 4. Type 2 diabetes. This 65-year-old man underwent a cholecystectomy yesterday that was complex with perforated gallbladder and common hepatic duct injury which was repaired. He was in shock postoperatively and received significant amount of transfusion of blood products and also was on pressors which were all weaned off last night. He is making good urine now and seems to be doing really well on a spontaneous breathing trial. He has volumed up significantly so we gave him a dose of IV Lasix. Stopped all of his IV fluids. I spoke with Dr. Zamudio who is covering for General Surgery today to see if there is any significant concern regarding his bile duct injury being a problem requiring reoperation. He indicated that it was not based on minimal drain output and the patient doing well clinically. Plan is to go ahead and extubate today. If he does well overnight, he should be able to move out of the ICU. We should consider repeating a dose of Lasix if he tolerates this current dose well. CRITICAL CARE TIME: 45 minutes.
--- NOTE | 2016-08-29 14:36 | PCM.PNMED ---
Subjective Date of Service Aug 29, 2016 Subjective 65-year-old man with poorly controlled type II diabetes mellitus (hemoglobin A1c 9.6%, glargine insulin 120 units per day, Humalog 55 units 3 times a day), CAD on Plavix with stent 2006, hypertension (atenolol, spironolactone and lisinopril), DASHA was admitted on 08/25 with acute cholecystitis. Plavix was discontinued and he was taken to surgery on 08/28. Intraoperative observations include perforated gallbladder, hepatic bile duct confluence injury with surgical repair, blood loss of approximately 1 L, intraoperative hypotension. Subsequently received 4 units PRBCs. Intubated. He is able to open both eyes spontaneously, nods appropriately to questions. Tolerating pressure support trial this morning. Exam Vital Signs Vital Sign - Last Date Time Temp Pulse Resp B/P Pulse Ox O2 Delivery O2 Flow Rate FiO2 08/29/16 11:00 88 93/54 99 40 08/29/16 10:30 18 08/29/16 08:00 37.1 Mechanical Ventilator Intake and Output 08/28/16 08/28/16 08/29/16 Cumulative From/Thru 15:00 23:00 07:00 08/25/16 16:10 - 08/29/16 06:31 Intake Total 4906 ml 22 ml 4075 ml 35046 ml Output Total 2525 ml 1130 ml 490 ml 7935 ml Balance 2381 ml -1108 ml 3585 ml 7535 ml Intake Oral 436 ml 3130 ml IV Total 3500 ml 22 ml 4075 ml 46974 ml Autotransfusion 750 ml 750 ml Platelets 220 ml 220 ml Output Urine Total 2525 ml 60 ml 215 ml 6590 ml Gastric Drainage Total 0 ml 75 ml 75 ml Drainage Total 70 ml 200 ml 270 ml Estimated Blood Loss 1000 ml 1000 ml # Voids 5 7 # Bowel Movements 3 0 6 Exam General: Obese middle-aged man, slightly pale sedated, intubated, HEENT: sclerae anicteric, oral mucosa moist Neck: Supple; central venous catheter Chest: Coarse ventilator breath sounds generally clear to auscultation, Cardiac: S1S2, no murmur Abdomen: BS normal, soft, right upper quadrant drain; Alves catheter Extremities: 1+ edema Neuro: Face appears symmetric, EOMI, PERRLA, pipefitter welder strength normal bilaterally IVs and Medications Medications Reviewed: Medications were reviewed in detail Lab and Diagnostics Result Diagram: 08/29/1631408/29/16314 X-Rays, CTs and MRIs PROCEDURE: CT ABDOMEN AND PELVIS WITH CONTRAST IMPRESSION: 1. Cholelithiasis with gallbladder wall thickening and pericholecystic inflammation compatible cholecystitis. 2. 2.1 cm enhancing lesion in segment 6 of the liver. Lesion may represent small hemangioma, however a dedicated multiphase CT scan of liver is recommended for definitive characterization of the lesion. 3. Atherosclerosis including the coronary vasculature. Dictated by: Malika Vaca MD, PhD on 08/25/2016 at 18:53 Approved by: Malika Vaca MD, PhD on 08/25/2016 at 18:58 PROCEDURE: X-RAY CHEST ONE VIEW, PORTABLE ([id number]) IMPRESSION: 1. Right mainstem bronchus intubation. 2. Left-sided catheter has been placed, the tip of which is not well seen, and is possibly arterial. Repeat imaging versus blood gas measurements on catheter aspirate recommended. 3. Left basilar atelectasis versus pneumonia. Follow up plain films of the chest are recommended to ensure resolution, and to exclude underlying or central malignancy. 4. Findings discussed with Dr. Chi on 08.28.16 at 1643 hrs. Dictated by: Amber Knapp M.D. on 08/28/2016 at 16:39 12-lead ECG SR, q waves inferiorly - no acute ischemic changes Assessment & Plan 65 year old male with a history of insulin-using diabetes mellitus, CAD with cardiac stent in 2006, hypertension, hyperlipidemia, DASHA, and GERD who presents with cholecystitis, operative course complicated by spontaneous perforated gallbladder, hepatic bile duct surgical perforation repaired, significant intraoperative hypotension and blood loss. Acute and/or high risk problem: #. Acute cholecystitis, present on admission, active. - CT abd/pelvis showed Cholelithiasis with gallbladder wall thickening and pericholecystic inflammation compatible cholecystitis. - Pain management with IV fentanyl drip at present - Antibiotic levofloxacin (due to penicillin anaphylactic history) plus metronidazole - Monitor output from MARQUISE drain - postoperative abdominal management per surgery service #. Acute blood loss anemia. Acute. No coagulopathy. Hemoglobin 12.4 after transfusion, now 10.3. No evidence of ongoing blood loss. - IV lactated Ringer's at 120 mL per hour; increase as needed maintain mean arterial pressure greater than 65 mmHg #. Acute respiratory failure. Intubation due to surgery and operative course. - Plan extubation on 08/29 in a.m. if clinical course stabilizes - Ventilation sedation: Propofol, fentanyl #. Insulin-using diabetes with peripheral neuropathy, proteinuria, and mild nonproliferative background diabetic retinopathy. Chronic, uncontrolled. Managed on IV insulin for 24 hours after surgery. - Discontinue IV insulin and initiate every 6 hours regular insulin medium scale , while nothing by mouth - 4 times a day capillary blood glucose - Glucose control goals: Random less than 180, fasting less than 140, none less than 70 - Insulin as needed, divided 50-50 long-acting and nutritional/correctional - Outpatient total daily insulin dose is 280 units Resolving, stable or chronic problems: #. Acute hyperkalemia, present on admission, active. No EKG changes with K 6.6 on 08/28. - Hold home Spironolactone and Lisinopril. - Resolving - Repeat BMP daily #. History of CAD, chronic, presume stable. - holding Plavix; will resume after patient is clinically stable - Continue ASA, Atorvastatin. - Check serial troponins #. Abnormal CT, unknown chronicity, present on admission. - CT abd/pelvis also showed a 2.1 cm enhancing lesion in segment 6 of the liver. Lesion may represent small hemangioma, however a dedicated multiphase CT scan of liver is recommended for definitive characterization of the lesion. - AST 44, ALT 93 --> resolved - Follow up as outpatient w PCP Dr. Gamez #. HTN, chronic, stable. - Resume home Atenolol; when necessary labetalol as needed -Resume atenolol, Spironolactone and Lisinopril when stable. #. Hyperlipidemia, chronic, presume stable. - Continue home Atorvastatin #. DASHA, chronic. - Plan to resume CPAP after patient is extubated #. GERD, chronic. -Continue CCU GI prophylaxis with IV Protonix #. DVT prophylaxis - resume after perioperative hemostasis assured #. CODE STATUS: FULL CODE Patient is admitted under inpatient status with expected length of stay greater than 2 midnights due to severity of presenting symptoms, risk of adverse event, and complexity of treatment plan. Dispo pending sx tomorrow and clinical stability thereafter GI Prophylaxis: Proton Pump Inhibitor VTE Prophylaxis: SCDs VTE Mechanical Devices: Intermittant Pneumatic CD Resuscitation Status: CPR: Attempt Resuscitation Time spent 40 minutes Ochoa Chi MD Aug 29, 2016 14:36
--- NOTE | 2016-08-29 14:55 | NUR ---
Dr. Chon Chi made aware that Right IJ is not central, it is brachiocephalic, per radiologist.
--- NOTE | 2016-08-29 16:15 | NUR ---
Social Work Note: Continued Discharge Planning Data& Assessment: Pt has been extubated. SW met with pt and pt at bedside to check in and assess for any unmet needs. SW provided SW phone number on whiteboard. Pt and pt deny any needs at this time. SW to continue to follow for medical progression. Plan: Per pt is not medically ready for discharge at this time and is recovering from intubation. Pt and pt deny any needs at this time. SW to continue to follow for medical progression. LISA Hartman
--- NOTE | 2016-08-29 16:16 | NUR ---
IESHA Signed LISA Hartman
--- NOTE | 2016-08-29 16:39 | CONS ---
[address] [address] CONSULTATION REPORT PATIENT: DIAMANTE AZAR : 1950 MR#: [id number] ADMIT: 08/25/2016 JOB ID: [id number] DATE OF SERVICE: 08/29/2016 INFECTIOUS DISEASE CONSULTATION: I thank Dr. Chon Chi for this timely consultation. REASON FOR CONSULTATION: Acute cholecystitis. HISTORY OF PRESENT ILLNESS: The patient is a 65-year-old gentleman who is in generally good health though he does have a history of diabetes, coronary artery disease, obesity, hypertension and sleep apnea. He also has a history of anaphylaxis due to PENICILLIN as a 8-year-old, which would have been back in roughly 1958. The current medical problems began back in early August when the patient developed generalized abdominal pain which slowly worsened. This abdominal bloating and diffuse abdominal pain led him to try enemas at home and other nonspecific measures without much benefit. Eventually it got so bad he went to Urgent Care on August 25 and there he reported decreased stool caliber, diffuse abdominal pain and bloating along with other problems. This led to some lab work which disclosed a high potassium, very high alk phos and the discovery of some pretty significant abdominal pain associated with some transient hypotension. These factors lead him to be transferred to the ED for CT scanning which showed that he had what appeared to be acute cholecystitis. He was given ceftriaxone and Flagyl in the ED, and on , he was taken to the operating room by Dr. Palma. His surgery had to be delayed a bit because he was on aspirin and Plavix due to a drug-eluting coronary artery stent. In any event, in surgery, there was an attempt to do a laparoscopic cholecystectomy but this proved to be very difficult. It appeared that there was initially a perforation of the gallbladder with a gallstone visible as well as purulence. Because of the difficulties in visualizing the site and adhesions and other issues, eventually an open cholecystectomy was performed. During the course of the surgery, a bile duct injury was noted. That surgery was completed yesterday afternoon and the appropriate drains were left in place and the patient received multiple units of packed red blood cells. Following the surgery, the patient has improved considerably though he did have some degree of postoperative shock which is now considerably improved. This afternoon the patient is extubated, awake and alert. He is able to report that he has some degree of right upper quadrant pain but otherwise does not feel too bad. He currently has no fevers, chills or sweats. No significant pulmonary symptoms and only some modest right upper quadrant pain and no other acute symptoms are reported. PAST MEDICAL HISTORY: 1. Diabetes mellitus. 2. Coronary artery disease with stents. 3. Obesity. 4. Hyperlipidemia. 5. Hypertension. 6. Obstructive sleep apnea. 7. Left foot drop secondary to polio as a child. 8. Chronic back and neck pain. ALLERGIES: PENICILLIN allergy is noted with history of anaphylaxis at age [age]. SOCIAL HISTORY: The patient does not smoke and quit many decades ago. He drinks very occasional alcohol and does not use any illicit drugs. He was born in [place] and moved to the [place] at the age of [age]. FAMILY HISTORY: Negative for tuberculosis in first degree relatives. REVIEW OF SYSTEMS: Was done. The patient tells us today that he has no headache, no sinus complaint, no sore throat. No cough, shortness of breath or chest pain. He has some moderate right-sided abdominal pain, but not on the left. No issues with urgency, frequency or dysuria. No complaints in his joints. He denies any skin rash. Remainder of the review of systems is negative. PHYSICAL EXAMINATION: Reveals an afebrile gentleman, temperature 37.1, he has been afebrile since admission. Pulse 84, respiratory rate 18, blood pressure 93/53, saturating well on room air. He is awake, alert and pleasant. Head without trauma. Sinuses nontender. Eyes without conjunctivitis or scleral icterus. His oral cavity is unremarkable. No thrush or hairy leukoplakia. He does not have significant JVD. A right neck IJ line is in good position and without tenderness or inflammation. His lungs are relatively clear. Cardiac tones: Regular rate and rhythm without murmur. Abdomen has a binder in place which I did not remove. He has hypoactive bowel tones and some tenderness towards the right side of the abdomen but not significant. A drain is present in the right upper quadrant. Alves catheter is no longer present. He does not have suprapubic abnormality. His extremities are free of synovitis. He has intact strength in his lower extremities and no skin rashes noted. No thyromegaly. LABORATORIES: Include white count initially as high as 28,000 yesterday, postop now 19,000. The differential shows a modest left shift. Creatinine 1.03. AST and ALT elevated at 69 and 80 respectively. Alk phos 115. Albumin 1.7. Urinalysis 6-10 white cells. MRSA screen negative. Urine culture negative. IMAGING: Includes an abdominal CT from admission which showed cholelithiasis with gallbladder wall thickening consistent with cholecystitis. There is also a 2 cm enhancing lesion in the liver which could represent hemangioma and diffuse atherosclerosis. CT scans in general showed bibasilar atelectasis versus aspiration or pneumonia including one done today. IMPRESSION: This patient clearly had acute cholecystitis and at the time of surgery perforation and pus was observed. The standard drugs here would be perhaps Unasyn or Zosyn with coverage for enterococci gram-negative rods and anaerobes. This is made a bit difficult by the history of anaphylaxis due to PENICILLIN though that history is now more than half a century old, it is nonetheless worrisome. Given that he tolerated ceftriaxone in the ED, I think we could switch him from levo and Flagyl, which leaves out a lot of gram-negative rods, and switch to ceftriaxone plus Flagyl. This will provide excellent coverage for community-acquired gram-negative rods as well as anaerobes. The only thing missing in the ceftriaxone/Flagyl combo was enterococci but these are usually not the major pathogen and I think this is a reasonable alternative in this case where we have no clear-cut cultures or source of infections. RECOMMENDATIONS: 1. Will switch the levo to ceftriaxone. Will closely watch for allergic problems. 2. How long the antibiotics will depend on whether or not there is a biliary leak and how complicated this right upper quadrant process remains. 3. Should the patient fail to improve, we might consider adding or changing antibiotics so as to provide some enterococcal coverage but I do not think it is critical at this point.
--- NOTE | 2016-08-29 18:44 | NUR ---
Extubated to room air this morning following a 2-hour pressure support trial and ABGs. Zofran effective for c/o mild nausea. Abd round/distended, no bowel tones heard, states "rumbling, mostly indigestion". Alves cath drained 650 dark lilibeth urine. MARQUISE drained 120mls sero-sanguinous fluid. Denies pain, Fentanyl infusion discontinued when extubated. IVFs to TKO per MD. Received Lasix today. Insulin infusion stopped, changed to SQ insulin; BG 100. Right radial arterial line discontinued, positional BPs, not patent for blood draws,site dressed/stable. Supportive at bedside most of day. A/O and in good spirits.
[2016-08-29] MEDS: Insulin Human REGular 300 Unit/3 mL Inj SUBQ SCH (20:30)
[2016-08-30] VITALS: BP 118/62; PULSE 95; RESP 23; O2SAT 96
[2016-08-30] MEDS: Chlorhexidine 0.12% 15 mL Oral Solution MT SCH (00:30)
[2016-08-30] MEDS: metroNIDAZOLE Inj 500 MG in IV Premix 1 EACH IV SCH ×3 (00:49→17:07)
[2016-08-30] MEDS: Heparin 5,000 Unit/mL Inj SUBQ SCH ×3 (00:50→16:28)
[2016-08-30] MEDS: fentaNYL-PF 50 mCg/mL 2 mL Inj IVPUSH PRN ×5 (00:58→20:11)
[2016-08-30] MEDS: Ondansetron 2 mg/mL 2 mL Inj IVPUSH PRN ×2 (00:58→09:51)
[2016-08-30] MEDS: Insulin Human REGular 300 Unit/3 mL Inj SUBQ SCH ×4 (02:21→20:12)
[2016-08-30] MEDS: Lactated Ringer's 1,000 ML IV SCH ×3 (02:35→16:58)
[2016-08-30 04:00] VITALS: BP 120/67; PULSE 100; RESP 21; O2SAT 96
--- NOTE | 2016-08-30 06:36 | NUR ---
P) Pain/Respiratory Pt. alert and oriented, c/o intermittent cramping, gas type pain, hears intestines gurgling but has not passed any flatus yet. I) Meds per 's order, cont. to monitor, gave zofran to help with abdominal cramping. E) Zofran seemed to help as did fentanyl but only lasted a few hours. Abdominal dressing clean, dry and intact, MARQUISE draining mostly sanguinous fluid.
[2016-08-30] MEDS: Brimonidine-Timolol 5 mL Ophthalmic Solution BOTH_EYES SCH ×2 (08:17→20:11)
[2016-08-30] MEDS: Pantoprazole 4 mg/mL 10 mL Inj IVPUSH SCH ×2 (08:19→16:27)
[2016-08-30] MEDS: cefTRIAXone Inj 2,000 MG in Dextrose 5% Minibag Plus 50 ML IV SCH (08:20)
[2016-08-30 08:26] LABS: Bilirubin, Direct 1.6 mg/dL (0.0-0.3)
[2016-08-30 08:30] VITALS: BP 122/64; PULSE 88; RESP 19; O2SAT 94
[2016-08-30] MEDS ORDERED: Furosemide 10 mg/mL 4 mL Inj IVPUSH SCH (08:30)
--- NOTE | 2016-08-30 11:20 | NUR ---
NUTRITION FOLLOW-UP: Assess: 65 YO M admitted to CCU for cholecystitis requiring intubation d/t surgery with hypertensive shock. Pt was able to be extubated 08/29. Remains NPO due to need for bowel rest. He has been NPOx3 days. PMHX: Type 2 DM, OA, HLD, dyshidrotic eczema, HTN, DASHA. DIET: NPO x3 days. Previous PO on Full liquids: 75-100%. LABS: Glu 127, Ca 7.5, Alb 1.7 MEDICATIONS: Reviewed. Lasix, protonix GI: 3 BM 08/28. SKIN: No issues noted. ANTHROPOMETRICS: Wt: 100.6, BMI 34. Kg/m2, Admit wt: 93.2 kg, IBW: 67.3 kg ESTIMATED NEEDS: BMI Calories: 4385-9651 kcal/day (20-22 kcal/kg BW) Protein: 80-100 g/day (1.2-1.5 g/kg IBW) NUTRITION DIAGNOSIS: 1) Inadequate oral intake related to decreased ability to consume sufficient energy as evidenced by NPO/Vent status. --PERSISTS INTERVENTION: 1) Will continue to monitor NPO Status and return of bowel function MONITOR/EVALUATE: NPO, labs, POC, GI, nutrition status. Follow per high nutrition risk guidelines.
--- NOTE | 2016-08-30 11:52 | NUR ---
Evaluation completed. Please go to "Notes" then click on "Assessments and Notes" (bottom left corner of screen). Then select appropriate discipline tab on top of screen.
[2016-08-30 13:24] VITALS: BP 127/73; PULSE 110; RESP 18; O2SAT 96
--- NOTE | 2016-08-30 14:20 | NUR ---
DUC donato Pt. transferred off [facility] to Nuclear Med Dept at 1419. He was pre-medicated with Fentanyl PRN 50 mcg IV as instructed by Dr. Zamudio. Addendum: 08/30/16 at 1443 by JAMEEL LONDONO RN Pt. returned to [facility] at 1443.
--- NOTE | 2016-08-30 15:47 | PCM.PNMED ---
Subjective Date of Service Aug 30, 2016 Subjective 65-year-old man with poorly controlled type II diabetes mellitus (hemoglobin A1c 9.6%, glargine insulin 120 units per day, Humalog 55 units 3 times a day), CAD on Plavix with stent 2006, hypertension (atenolol, spironolactone and lisinopril), DASHA was admitted on 08/25 with acute cholecystitis. Plavix was discontinued and he was taken to surgery on 08/28. Intraoperative observations include perforated gallbladder, hepatic bile duct confluence injury with surgical repair, blood loss of approximately 1 L, intraoperative hypotension. Subsequently received 4 units PRBCs. He was extubated on 08/29. He acknowledges feeling washed out. Abdominal pain is mild. Abdomen feels active but no flatus or stool. No significant nausea. No dyspnea or chest pain. He has tolerated beta-lactam antibiotics ceftriaxone , despite past history of anaphylactic penicillin response. Exam Vital Signs Vital Sign - Last Date Time Temp Pulse Resp B/P Pulse Ox O2 Delivery O2 Flow Rate FiO2 08/30/16 13:24 36.7 110 18 127/73 96 Room Air 08/29/16 11:00 40 Intake and Output 08/29/16 08/29/16 08/30/16 Cumulative From/Thru 15:00 23:00 07:00 08/25/16 16:10 - 08/30/16 06:34 Intake Total 1120 ml 446 ml 51584 ml Output Total 770 ml 890 ml 9595 ml Balance 350 ml -444 ml 7441 ml Intake Oral 0 ml 3130 ml IV Total 1120 ml 446 ml 03453 ml Autotransfusion 750 ml Platelets 220 ml Output Urine Total 650 ml 750 ml 7990 ml Gastric Drainage Total 0 ml 75 ml Drainage Total 120 ml 140 ml 530 ml Estimated Blood Loss 1000 ml # Voids 7 # Bowel Movements 0 6 Exam General: Obese middle-aged man, slightly pale, alert and communicative HEENT: sclerae anicteric, oral mucosa moist Neck: Supple; central venous catheter Chest: Clear bilaterally Cardiac: S1S2, no murmur Abdomen: BS normal, soft, right upper quadrant drain; Alves catheter Extremities: 1+ edema Neuro: Face appears symmetric, EOMI, PERRLA, motor strength grossly normal IVs and Medications Medications Reviewed: Medications were reviewed in detail Lab and Diagnostics Bilirubin 2.3 (was 0.3 on admission) ALT 57 Albumin 2.2 Free calcium normal Result Diagram: 08/30/16 0415 08/30/16 0415 X-Rays, CTs and MRIs PROCEDURE: CT ABDOMEN AND PELVIS WITH CONTRAST IMPRESSION: 1. Cholelithiasis with gallbladder wall thickening and pericholecystic inflammation compatible cholecystitis. 2. 2.1 cm enhancing lesion in segment 6 of the liver. Lesion may represent small hemangioma, however a dedicated multiphase CT scan of liver is recommended for definitive characterization of the lesion. 3. Atherosclerosis including the coronary vasculature. Dictated by: Malika Vaca MD, PhD on 08/25/2016 at 18:53 Approved by: Malika Vaca MD, PhD on 08/25/2016 at 18:58 PROCEDURE: X-RAY CHEST ONE VIEW, PORTABLE ([id number]) IMPRESSION: 1. Right mainstem bronchus intubation. 2. Left-sided catheter has been placed, the tip of which is not well seen, and is possibly arterial. Repeat imaging versus blood gas measurements on catheter aspirate recommended. 3. Left basilar atelectasis versus pneumonia. Follow up plain films of the chest are recommended to ensure resolution, and to exclude underlying or central malignancy. 4. Findings discussed with Dr. Chi on 08.28.16 at 1643 hrs. Dictated by: Amber Knapp M.D. on 08/28/2016 at 16:39 12-lead ECG SR, q waves inferiorly - no acute ischemic changes Assessment & Plan 65 year old male with a history of insulin-using diabetes mellitus, CAD with cardiac stent in 2006, hypertension, hyperlipidemia, DASHA, and GERD who presents with cholecystitis, operative course complicated by spontaneous perforated gallbladder, hepatic bile duct surgical perforation repaired, significant intraoperative hypotension and blood loss. Hemodynamics stabilized after approximately 24 hours of resuscitation and mechanical ventilation. He was discontinued from CCU status on 08/30. Acute and/or high risk problem: #. Acute cholecystitis, present on admission, active. - CT abd/pelvis showed Cholelithiasis with gallbladder wall thickening and pericholecystic inflammation compatible cholecystitis. - Pain management with IV fentanyl bolus until taking oral analgesics - Antibiotic ceftriaxone plus metronidazole - Monitor output from MARQUISE drain - Nothing by mouth until signs of bowel activity - postoperative abdominal management per surgery service #. Acute blood loss anemia. Acute. No coagulopathy. Hemoglobin 12.4 after transfusion, now 10.3. No evidence of ongoing blood loss. - IV lactated Ringer's at 125 mL per hour #. Obesity hypoventilation syndrome. - Continue home CPAP or BiPAP as needed #. Insulin-using diabetes with peripheral neuropathy, proteinuria, and mild nonproliferative background diabetic retinopathy. Chronic, uncontrolled. Managed on IV insulin for 24 hours after surgery. Outpatient total daily insulin dose is 280 unit. Requiring almost no insulin in fasting state. - Discontinue IV insulin and initiate every 6 hours regular insulin medium scale , while nothing by mouth - 4 times a day capillary blood glucose - Glucose control goals: Random less than 180, fasting less than 140, none less than 70 Resolving, stable or chronic problems: #. Acute respiratory failure. Intubation due to surgery and operative course. -Extubated 08/29 #. Acute hyperkalemia, present on admission, active. No EKG changes with K 6.6 on 08/28. - Hold home Spironolactone and Lisinopril. - Resolving - Repeat BMP daily #. History of CAD, chronic, presume stable. - holding Plavix; will resume after patient is clinically stable - Continue ASA, Atorvastatin. - Check serial troponins #. Abnormal CT, unknown chronicity, present on admission. - CT abd/pelvis also showed a 2.1 cm enhancing lesion in segment 6 of the liver. Lesion may represent small hemangioma, however a dedicated multiphase CT scan of liver is recommended for definitive characterization of the lesion. - AST 44, ALT 93 --> resolved - Follow up as outpatient w PCP Dr. Gamez #. HTN, chronic, stable. - Resume home Atenolol; when necessary labetalol as needed -Resume atenolol, Spironolactone and Lisinopril when stable. #. Hyperlipidemia, chronic, presume stable. - Continue home Atorvastatin #. GERD, chronic. - Continue IV Protonix until able to take oral meds #. DVT prophylaxis - resume after perioperative hemostasis assured #. CODE STATUS: FULL CODE Patient is admitted under inpatient status with expected length of stay greater than 2 midnights due to severity of presenting symptoms, risk of adverse event, and complexity of treatment plan. GI Prophylaxis: Proton Pump Inhibitor VTE Prophylaxis: SCDs VTE Mechanical Devices: Intermittant Pneumatic CD Resuscitation Status: CPR: Attempt Resuscitation Time spent 35 minutes Ochoa Chi MD Aug 30, 2016 15:47
[2016-08-30] MEDS: Propofol Inj 1,000,000 MCG in IV Premix 1 EACH IV SCH (16:12)
--- NOTE | 2016-08-30 16:28 | PROG NOTE ---
[address] [address] PROGRESS NOTE PATIENT: DIAMANTE AZAR : 1950 MR#: [id number] ADMIT: 08/25/2016 JOB ID: [id number] DATE: Postop day number three, patient continues to do well although his bilirubin has started to climb and his Delonte-Coels drain has some evidence of bile in it. HIDA scan was obtained which surprisingly shows no visualization of the common duct below the liver, minimal visualization of the drain. IMPRESSION/PLAN: Complete obstruction of his common duct is somewhat surprising given the slow rise in his bilirubin. Clinical picture remains slightly unclear, based on the operative findings, postoperative course, including labs, and all of his films together. Nonetheless, it appears he had some sort of possible bile duct injury, and on that basis, I have discussed the case with Dr. Palma and we are going to transfer the patient down to [facility] to the care of Dr. Josias Corea.
[2016-08-30 16:32] VITALS: BP 121/71; PULSE 107; RESP 18; O2SAT 94
--- NOTE | 2016-08-30 16:51 | DRSVH ---
PROCEDURE: NM HIDA SCAN BILE LEAK RADIOPHARMACEUTICAL: 5.2 mCi Tc-99m mebrofenin IV. INDICATIONS: 65 year-old male with recent cholecystectomy. TECHNIQUE: Following intravenous administration of Tc-99m mebrofenin, sequential anterior abdominal images were obtained through at least 90 minutes. Additional delayed images were obtained at 4 hours and 7 hours. COMPARISON: [facility], CT, CT ABD PELVIS W CON, 08/25/2016, 18:44. FINDINGS: There is normal tracer uptake by the liver with rapid clearance of the intravascular activ ity. Slightly more prominent activity in the left hepatic lobe is likely due to its anterior positio n and relatively large left hepatic lobe. There is no visualization of intrahepatic ducts and common bile duct. No free-flowing intrahepatic activity to suggest bile leak. No collection of activity mukul und the liver to suggest biloma. There is no tracer excretion into duodenum. A linear activity in th e right upper quadrant is consistent with a surgical drain. IMPRESSION: 1. There is nonvisualization of common bile duct and absence of tracer excretion into the duodenum. T he findings are consistent with common bile duct obstruction. 2. There is a small amount of bile activity within the surgical drain. Dictated by: Bret Zaragoza M.D. on 08/30/2016 at 16:37 Transcribed by: YOSEF on 08/30/2016 at 16:51 Approved by: Bret Zaragoza M.D. on 08/30/2016 at 21:58
[2016-08-30 19:58] VITALS: BP 136/73; PULSE 106; RESP 18; O2SAT 95
--- NOTE | 2016-08-30 23:55 | NUR ---
transfer ALS here to pick pt up to transfer to [facility] pt with LR running, brooke in place, on RA, pt called to let her know, belongings taken with pt, report called to Sal at [facility] pt with some abd cramping. signed consent to transfer
--- NOTE | 2016-08-31 00:31 | DIS ---
[address] [address] TRANSFER SUMMARY PATIENT: DIAMANTE AZAR : 1950 MR#: [id number] ADMIT: 08/25/2016 JOB ID: [id number] DIAGNOSES: 1. Bile duct occlusion status post cholecystectomy. 2. Acute cholecystitis. 3. Coronary artery disease with cardiac stenting in 2006. 4. Diabetes mellitus, on insulin. 5. Hypertension. 6. Hyperlipidemia. 7. Obstructive sleep apnea. 8. Gastroesophageal reflux disease. 9. Morbid obesity. OPERATIONS AND PROCEDURES: August 28: Laparoscopy converted to open, partial cholecystectomy, repair of common hepatic duct injury, and drain placement. HOSPITAL COURSE: This is a 65-year-old male with previous history of cardiac stenting in 2006, with stable coronary artery disease, insulin-dependent diabetes mellitus, hypertension, hyperlipidemia, obstructive sleep apnea, and GE reflux disease, who presented with abdominal pain that had been present for two weeks. HOME MEDICATIONS: Included: 1. Aspirin. 2. Plavix 75 mg daily. 3. Atenolol 25 mg daily. 4. Atorvastatin 10 mg daily. 5. Combigan eye drops. 6. Gabapentin 400 mg t.i.d. 7. Humalog insulin pen 50-60 units subcutaneous before meals, 8. Lisinopril 40 mg daily. 9. Hassell-3 fatty acids t.i.d. 10. Omeprazole 20 mg b.i.d. 11. Spironolactone 25 mg daily. 12. Long-acting insulin 120 units q.a.m. 13. Triamcinolone topical cream. 14. Victoza To toes 1.2 mg subcutaneous daily. 15. Vitamin B complex. ALLERGIES: Included: 1. PENICILLIN. 2. HYDROCODONE. 3. TAPE. 4. CODEINE. 5. As well as a NEOPRENE ARM BRACE that causes severe itch and rash. HOSPITAL COURSE CONTINUED: He was admitted to the medical service, his Plavix was held, and on hospital day three he was taken to the operating room by Dr. Andrew Palma with findings of a perforated gallbladder with an abscess. That operation was converted from laparoscopic to open. Bleeding from what was described as the hepatic artery was encountered and this bleeding was controlled. At the end of this, the surgeons, Dr. Palma and Dr. Yadav, observed evidence of bile adjacent to the bleeding site and using a cholangiocatheter identified the site as an opening in continuity with confluence to the right and left hepatic duct. Telephone consultation was obtained with Dr. Corea at [facility] and our surgeons performed what was described as simple repair of the bile duct injury and left the Delonte-Coles drain. As well, the gallbladder was amputated, approximately 1/5 of the infundibulum was left behind, with mucosal cauterization. On further reading of the operative note, the site of injury was over-sewn with a single 5-0 Prolene suture placed in a U-shaped fashion followed by FloSeal supplementation. After this surgery, the patient remained intubated for 24 hours, was extubated without complications. Preoperatively, the patient's white blood cell count was 18.5 and postoperatively it salvador to 28.4, dropping down to 18.3 today. His hematocrit was 36.5 preoperatively and due to intraoperative bleeding the patient received 3 units of packed red blood cells during the case. Postoperatively, his hematocrit was 37 and has drifted down to 28.6 today. Liver function tests prior to surgery had a bilirubin 0.3, AST of 136, ALT of 86 with an alkaline phosphatase of 132. His postop bilirubin was initially 0.8 on August 29 with his AST and ALT being 69 and 80 respectively, with a normal alkaline phosphatase. However, this morning he was noted to have rising bilirubin to 1.8 with his other LFTs remaining in the acceptable range. A nuclear medicine HIDA scan was obtained that demonstrated no visualization of the common duct below the hepatic confluence with the hepatic confluence obscured by liver uptake and some minor visualization of the drain. His drain output was initially serosanguineous, but as of yesterday afternoon had a hank color suggestive of a bile leak, and the volume has now picked up to roughly 150 cc over the previous 12 hours with bile-tinged but not yenny bile. Regarding medications, the patient has been maintained on antibiotics, specifically IV metronidazole and IV ceftriaxone since his surgery. He has been given most of his oral medications, but has not restarted his aspirin or his Plavix. Case was discussed with Dr. Palma and Dr. Yadav, and the patient will be transferred to Dr. Josias Corea's service at [facility] to address questions of bile duct injury. This has been discussed with the patient.
--- NOTE | 2016-09-01 08:37 | PATH ---
SURGICAL PATHOLOGY Attending Physician:Andrew Palma M.D. CASE STATUS: Signed Out PATIENT NAME: DIAMANTE AZAR PID: [id number] : 1950 DATE COLLECTED:08/28/2016 00:00 SPECIMEN: Gallbladder CLINICAL HISTORY: CHOLELITHLASIS 1).GALLBALDER FINAL DIAGNOSIS: Gallbladder: Chronic active cholecystitis with cholelithiasis. No evidence of malignancy. ICD10 K81.2 GROSS DESCRIPTION: The specimen is received in formalin, labeled with the patient's name and "gallbladder". It consists of a 7.7 x 5.5 x 4.2 cm, previously disrupted gallbladder. The serosa is diffusely roughened and hemorrhagic. The cystic duct is not able to be identified due to the disrupted nature of the specimen. The gallbladder wall appears fibrotic and has an average thickness of 0.9 cm. The serosa appears predominantly denuded. One black-brown, crystalline gallstone is present in the specimen container measuring 3.8 cm in greatest dimension. [employer] sections of gallbladder wall are submitted in two cassettes. (TRAY:[id number]) ICD-9 CODES: CPT CODES: 1: 22891 Electronically Signed Out Donato Torres MD [facility] [address], [place] [address] Technical component performed at [facility], [facility] [address], [address]
== END 2016-08-30 23:10 | disposition short-term general hospital (02) | DRG 408 ==
LOC: SED 15:47 → OSC 22:16 → CCU 08-28 16:06 → PCC 08-30 07:59
PROVIDERS: ADMIT Hospitalist; ATTEND Hospitalist
PROC: 0FQ Hepatobiliary System and Pancreas, Repair (ICD-10-PCS; 2016-08-28)
PROC: 0FJ44ZZ Inspection of Gallbladder, Percutaneous Endoscopic Approach (ICD-10-PCS; 2016-08-28)
PROC: 4A033R1 Measurement of Arterial Saturation, Peripheral, Percutaneous Approach (ICD-10-PCS; 2016-08-28)
PROC: 30233N1 Transfusion of Nonautologous Red Blood Cells into Peripheral Vein, Percutaneous Approach (ICD-10-PCS; 2016-08-28)
PROC: 0FT40ZZ Resection of Gallbladder, Open Approach (ICD-10-PCS; principal; 2016-08-28 09:00)
DX: K80.00 Calculus of gallbladder with acute cholecystitis without obstruction (principal); K82.2 Perforation of gallbladder; J95.821 Acute postprocedural respiratory failure; D62 Acute posthemorrhagic anemia; R57.9 Shock, unspecified; S36.13XA Injury of bile duct, initial encounter; E66.2 Morbid (severe) obesity with alveolar hypoventilation; K21.9 Gastro-esophageal reflux disease without esophagitis; I25.10 Atherosclerotic heart disease of native coronary artery without angina pectoris; I10 Essential (primary) hypertension; E78.5 Hyperlipidemia, unspecified; Z87.891 Personal history of nicotine dependence; E11.42 Type 2 diabetes mellitus with diabetic polyneuropathy; E11.65 Type 2 diabetes mellitus with hyperglycemia; Z79.4 Long term (current) use of insulin; E87.5 Hyperkalemia; Z53.31 Laparoscopic surgical procedure converted to open procedure; Z68.34 Body mass index [BMI] 34.0-34.9, adult

== ENCOUNTER 2016-09-21 13:11 | Emergency (ER) | payer MEDICARE ==
[~2016-09-21] VITALS: Ht 170.2 cm; Wt 90.9 kg
[~2016-09-21 13:11] MED LIST changes: -FLUT9.9S NS; -GUAI600T86 PO; +LIRA0.6P SQ; -OMEG1CAP25 PO; -OMEP20TA86 PO; +SPIR25TA3 PO; -SPIRONALACTONE PO
[2016-09-21] MEDS ORDERED: HYDROmorphone 1 mg/mL Inj ONE (13:32)
[2016-09-21] MEDS ORDERED: Ondansetron 2 mg/mL 2 mL Inj ONE (13:32)
--- NOTE | 2016-09-21 13:33 | ED.REPORT ---
HPI-GI Bleed Date of Service Sep 21, 2016 ED Provider: Lewis Gibbs MD History of Present Illness: Please note that this document was completed using the GI bleed template due to the nurse telling me that the patient had presented with GI bleeding, so I opened this template as required prior to entering the patient room, however on interview the patient denies GI bleeding, and the actual complaint is RUQ abdominal pain. This is a 65 year old male with a history of CAD on plavix, DM, HTN, hyperlipidemia, GERD, bowel duct occlusion status post cholecystectomy presenting to the emergency department due to abdominal pain that began 5 hours ago. Described as "burning and stingin," 10/10 pain at this time associated with diaphoresis. Also reports nausea that began last night. Pt states symptoms are identical to those with previous bowel duct occlusion. Denies radiation of pain, fever, chills, hematochezia, hematemesis, vomiting, or diarrhea. Nursing Notes Stated Complaint: ABDOMINAL PAIN Nursing Notes Reviewed: Yes ([employer] not reconciled EMR indicates ho Plavix use) Allergies: Coded Allergies: Penicillins (Verified Allergy, Severe, anaphylaxis, 09/21/16) hydrocodone (Verified Allergy, Severe, stomach ache, 09/21/16) TAPE (Verified Allergy, Intermediate, rash, 09/21/16) surgical tape only codeine (Verified Allergy, Unknown, UNKNOWN, 09/21/16) Uncoded Allergies: ARM BRACE (NEOPRENE) (Adverse Reaction, Severe, ITCH, RASH, 12/16/15) Scheduled Aspirin (Aspirin) 81 Mg Tablet 81 MG PO DAILY Atenolol (Atenolol) 25 Mg Tablet 25 MG PO DAILY Atorvastatin (Lipitor) 10 Mg Tab 10 MG PO HS Brimonidine Tartrate/Timolol (Combigan Eye Drops) 5 Ml Drops 1 DROP AFFECT_EYE BID Clopidogrel Bisulfate (Plavix) 75 Mg Tablet 75 MG PO DAILY Gabapentin (Gabapentin) 400 Mg Capsule 1,200 MG PO TID Insulin Glargine,Hum.rec.anlog (Toujeo Solostar) 300 Unit/Ml (1.5 Ml) Insuln.pen 120 UNIT SQ QAM Liraglutide (Victoza 2-Kristofer) 0.6 Mg/0.1 Ml Pen.injctr 0.6 MG SQ MORNING Lisinopril (Lisinopril) 40 Mg Tablet 40 MG PO DAILY Spironolactone (Spironolactone) 25 Mg Tablet 25 MG PO DAILY Triamcinolone Acet (Triamcinolone Acetonide Cream) 1 Applic/0.25 Gm Cr 1 APPLIC EXT BID 0.1% Vit B Comp/C/FA/Iron/Vit E (Vitamin B Complex Tablet) 1 Each Tablet 1 EACH PO DAILY Scheduled PRN Insulin Lispro (Humalog Kwikpen) 200 Unit/Ml (3 Ml) Insuln.pen 25-45 UNIT SQ DIRECTED PRN PRN CARB COUNTING INSULIN TO CARB RATIO: 1:1, PT HOLDS INSULIN FOR BG < 150 AT HS General Time Seen by Provider: 13:34 Chief Complaint Chief Complaint: Other Hx Obtained From: Patient Arrived By: Walk-in Onset Occurred: Just prior to arrival Symptom Duration: Since onset Severity: Current: No pain currently Pertinent Negative: Pt denies other symptoms Recent Healthcare: No recent doctor visit, No recent hospitalization Similar Sx Previous: No Past Medical History Past Medical History Coronary Artery Disease (on Plavix) Diabetes Mellitus (type II) Hypertension Hyperlipidemia GERD Obesity Dyshidrotc eczema Angina pectoris Sleep apnea Osteoarthritis Admission for bowel duct occlusion status post cholecystectomy acute cholecystitis and August 2016 Past Surgical History Cardiac Surgery (HEART CATH W/ BEATRIZ IN LAD 02/2007) Lumbar Neck surgery Laparoscopy converted to open, partial cholecystectomy with repair, and hepatic duct injury and drain placement 08/28/2016 by Louie -> transferred to for ERCP and stent placement (done 09/01/16), seen yest (09/20/16 in F/U w/Dr. Zamudio, MARQUISE drain removed) answered to Manolo Duke subsequent ERCP and stent placement September 01 Reports: Cataract surgery Smoking History Former Smoker Social History Other Social History: Good social support, , Local resident Ambulatory Status Independent Review of Systems Constitutional: Denies: Chills, Fever Respiratory: Denies: Shortness of breath Cardiovascular: Denies: Chest pain GI: Reports: Abdominal pain, Nausea, Denies: Diarrhea, Hematemesis, Hematochezia, Vomiting Skin: Reports Diaphoresis Neurologic: Denies: Headache Complete sys rev & neg: except as marked. Physical Exam Initial Vital Signs Vital Signs (First) Date Time Temp Pulse Resp B/P Pulse Ox O2 Delivery O2 Flow Rate FiO2 09/21/16 13:35 35.8 110 16 139/75 100 Room Air - Initial VS: Reviewed, Unavailable (no vitals on chart, ordered) Head / Eyes: Atraumatic, Normocephalic, PERRL ENT: Mucous membranes moist, Conjunctiva normal, No scleral icterus Neck: Supple, Non-tender, Full range of motion Extremities: Vascular intact, Neuro intact, No swelling, No tenderness Skin: Warm, Dry Neurologic: Alert, Oriented, Nonfocal Psychiatric: Mood/affect normal, Behavior normal, Normal thought content General/Constitutional: Awake, Alert Distress / Hydration: Positive: Distress moderate Question of mild jaundice Respiratory / Chest: Breath sounds NL, Breath sounds = bilat, No respiratory distress, No rales, No rhonchi, No wheezing Heart Rate / Rhythm: Positive: Tachycardia Abdomen: Non-tender, BS normoactive healing incision Rectal exam deferred Interpretation & Diagnostics ABDOMEN CT IMPRESSION: 1. Interval cholecystectomy with placement of a biliary stent catheter. This stent catheter is appropriately positioned. No intrahepatic or extrahepatic biliary dilatation is evident. 2. Fluid/debris within the gallbladder fossa likely is related to residual fluid/phlegmonous change from prior drainage catheter placement, which has subsequently been removed. No definite drainable fluid collection is appreciated. If the patient's symptoms persist, followup CT imaging is recommended. 3. Unchanged enhancing posterior right hepatic lesion, most likely representing a hemangioma. 4. Mild small bowel ileus without evidence of obstruction. Dictated by: Dylan Zuñiga M.D. on 09/21/2016 at 14:26 Approved by: Dylan Zuñiga M.D. on 09/21/2016 at 14:36 Lab Results Interpretation Result Diagram: 09/21/16 1329 09/21/16 1400 Test 09/21/16 13:29 09/21/16 14:00 09/21/16 16:34 White Blood Count 17.8th/mm3 (3.8-10.1) Red Blood Count 3.25mil/mm3 (4.40-5.80) Hemoglobin 8.9g/dL (13.8-17.2) Hematocrit 28.9% (41.0-50.0) Mean Corpuscular Volume 88.9fL (81-100) Mean Corpuscular Hemoglobin 27.4pg (27.0-35.0) Mean Corpuscular Hemoglobin Concent 30.8% (32.0-37.0) Red Cell Distribution Width 15.6% (12.3-15.4) Platelet Count 443bil/L (150-400) Neutrophils (%) (Auto) 85.8% (40-74) Lymphocytes (%) (Auto) 7.5% (14-46) Monocytes (%) (Auto) 5.6% (4-12) Eosinophils (%) (Auto) 0.1% (0-5) Basophils (%) (Auto) 0.2% (0-3) Prothrombin Time 10.1sec (8.1-12.5) Prothromb Time International Ratio 0.95ratio Activated Partial Thromboplast Time 24.4sec (22.8-33.0) Sodium Level 134mEq/L (134-144) Potassium Level 5.1mEq/L (3.5-5.2) Chloride Level 93mEq/L (97-108) Carbon Dioxide Level 15mmol/L (18-29) Blood Urea Nitrogen 33mg/dL (8-27) Creatinine 1.13mg/dL (0.76-1.27) Estimat Glomerular Filtration Rate 69mL/min (>59) Glucose Level 411mg/dL (60-99) Calcium Level 9.0mg/dL (8.5-10.1) Magnesium Level 1.8mg/dL (1.6-2.6) Total Bilirubin 4.2mg/dL (0.0-1.2) Aspartate Amino Transf (AST/SGOT) 125U/L (0-50) Alanine Aminotransferase (ALT/SGPT) 195U/L (0-44) Alkaline Phosphatase 681U/L (25-160) Total Protein 7.3g/dL (6.4-8.4) Albumin 3.5g/dL (3.4-5.0) Lipase 13U/L (13-60) Hold Maldonado Top Tube Received (Received) Hold Urine Received (Received) Lab Results Interpretation: CBC positive severe leukocytosis, anemia is chronic and unchanged compared to previous CMP low CO2, hyperglycemia LFTs demonstrate obstructive pattern with elevated bilirubin, alkaline phosphatase, AST, ALT signficantly higher than when he loosely transferred for biliary obstruction ( Re-Eval/Medical Decision Med Decision/Clinical Course This is a 65-year-old male presents with severe right upper quadrant pain that he says is identical to what he has had during a recent hospitalization. Patient is entered with cholecystitis on August 25 underwent a laparoscopic cholecystectomy, located by injury to the bile duct requiring conversion to an open cholecystectomy, but continued to have an ongoing bile leak and was transferred down to [facility] on the , and underwent ERCP and stenting of the bile duct on the . He reported to be doing quite well since then, had his MARQUISE drain pulled yesterday in surgical clinic visit had no drainage in the doing well-but then developed increasingly severe right upper quadrant pain terrible burning identical in character to when he had previously, but actually more severe. He has had no fever, no nausea or vomiting. On exam he appears extremely uncomfortable, he is tender in the right upper quadrant, although the incision sites healing without overt clinical signs of cellulitis or infection. IV was placed, and the patient's received fluids and multiple rounds of pain medicines. Despite numerous pain medicines the patient continued of ongoing severe, poorly controlled pain. Multiple agents were tried, and titrated. The patient received fentanyl, followed by Dilaudid, and versed. Placed on a monitor given the multitude of medications he received, remained in fairly severe pain. He developed urinary retention following multiple narcotics and a Alves was placed. He received disassociative dose ketamine for adjunctive pain control, but still had fairly refractory pain. After numerous doses and extended attempts he is improved, but never been particularly comfortable. His labs demonstrate evidence of recurrent biliary obstruction, CT imaging and I reveal overt pathology and the stent appears on CT imaging to be in reasonable position. Case is discussed with general surgery and in this setting suspicion is there is recurrent biliary obstruction likely due to obstruction of the stent, and the patient may require transfer to [facility]. [facility] facilitate transfer, which ultimately required through [place], which approved the transfer-and the case was discussed with both GI and the hospitalist at [facility]. Patient received empiric antibiotic coverage, receiving ceftriaxone and Flagyl due to the penicillin allergy. When the patient was hospitalized following the initial complication, infectious disease saw the patient and recommended this combination will undergo observation for any allergic reaction-the patient well tolerated it. Therefore is reinitiated today. he received IV fluids, and Humalog for the hyperglycemia. Patient is transferred for continued management, and is finally improved compared to presentation. Source of Hx: Old records Summary of Info: Ceftriaxone and flagyl given today, pt received this during previous visit and it was tolerated well although he has a pencillin allergy. Re-Evaluation/Progress : Time of Eval: 15:09 Re-Evaluation/Progress Note: Discussed lab results and need for transfer, all questions addressed. Consultation #1: Referral / Consult Name: Andrew Palma MD Consulted With: Surgeon Call Returned at: 14:24 [employer] Manager: Agrees with eval Consultation #2: Referral / Consult Name: Andrew Palma MD Call Returned at: 15:09 Note: Plan for transfer to [facility] Consultation #3: Call Returned at: 15:50 Note: Consult with Dr. Phong Worthington, GI at [facility]. Dr. Cabrera, hospitalist accepts transfer Counseled Regarding: Diagnosis, Lab results, Need for follow-up, Need for transfer Discharge & Departure Impression: Primary Impression: Biliary obstruction Additional Impressions: Intractable abdominal pain Hyperglycemia Urinary retention Disposition: Transfer, Acute Care Facility Receiving Hospital: [facility] Transfer Accepted: Yes Transfer Accepted at: 16:28 Transfer Reason: Higher level of care Patient Status: Stable, Stable for transfer Patient Informed: Yes Discharge Condition All VS Reviewed: Yes Condition: Stable Referrals: Lennox Gamez DO (PCP) Scribe Attestation Portions of this note were transcribed by Jalen Hernandez. I, Dr. Gibbs personally performed the history, physical exam and medical decision-making; I reviewed and confirmed the accuracy of the information in the transcribed note. Signed by Prudencio King, 09/21/2016 at 18:00. Lewis Gibbs MD Sep 21, 2016 13:33 JALEN HERNANDEZ Sep 21, 2016 13:35
[2016-09-21 13:35] VITALS: BP 139/75; PULSE 110; RESP 16; O2SAT 100
[2016-09-21] MEDS ORDERED: Ondansetron 2 mg/mL 2 mL Inj IVPUSH ONE (13:35)
[2016-09-21] MEDS: fentaNYL-PF 50 mCg/mL 2 mL Inj IVPUSH PRN ×2 (13:42→14:02)
[2016-09-21] MEDS ORDERED: fentaNYL-PF 50 mCg/mL 2 mL Inj IVPUSH PRN (14:05)
[2016-09-21 14:09] LABS: BASOPHILS % (AUTO) 0.2 % (0-3); EOSINOPHILS % (AUTO) 0.1 % (0-5); MONOCYTES % (AUTO) 5.6 % (4-12); Mean Corpuscular Hemoglobin 27.4 pg (27.0-35.0); Mean Corpuscular Volume 88.9 fL (81-100); NEUTROPHILS % (AUTO) 85.8 % (40-74); Platelet Count 443 bil/L (150-400)
[2016-09-21 14:27] LABS: INR 0.95 ratio
[2016-09-21 14:32] LABS: Magnesium 1.8 mg/dL (1.6-2.6)
[2016-09-21] MEDS: HYDROmorphone 1 mg/mL Inj IVPUSH PRN ×3 (14:48→18:55)
[2016-09-21 14:49] VITALS: BP 154/80; PULSE 106; RESP 26; O2SAT 100
[2016-09-21] MEDS ORDERED: Ketamine 100 mg/mL 5 mL Inj IV ONE ×2 (15:10→16:00)
[2016-09-21 15:25] VITALS: BP 157/80; PULSE 114; RESP 18; O2SAT 100
[2016-09-21] MEDS ORDERED: metroNIDAZOLE Inj 1,000 MG in IV Premix 1 EACH IV ONE (15:35)
[2016-09-21] MEDS ORDERED: cefTRIAXone Inj 2,000 MG in Dextrose 5% Minibag Plus 50 ML IV ONE (15:35)
--- NOTE | 2016-09-21 15:37 | DRSVH ---
PROCEDURE: CT ABDOMEN AND PELVIS WITH CONTRAST ([id number]) INDICATIONS: ABD PAIN history of recent cholecystectomy. TECHNIQUE: After the administration of oral and intravenous contrast, 5 mm thick sections acquired from the diap hragms to the symphysis. 5 mm thick coronal and sagittal reformats were performed. For radiation do se reduction, the following was used: automated exposure control, adjustment of mA and/or kV accordi ng to patient size. COMPARISON: [facility], CT, CT ABD PELVIS W CON, 08/25/2016, 18:44. FINDINGS: Image quality: Diagnostic. ABDOMEN: Lung bases: Minimal scar versus atelectasis at the bilateral lung bases is present. Coronary artery atherosclerosis is noted. Heart size is normal. Solid organs: There has been an interval cholecystectomy. A biliary stent is seen within the common bile duct that extends into the duodenum. There is mild periportal edema. No significant intrahepat ic delivery dilatation is present. Within the gallbladder fossa, there is heterogeneous collection o f fluid and air that does not demonstrate peripheral enhancement; however, is noted to track to the l evel of the anterior abdominal wall and along the subcutaneous tissues, compatible with the placement of a percutaneous drainage catheter. Then the posterior segment of the right hepatic lobe there is an enhancing lesion evident that measures at least 2.4 x 1.5 cm, unchanged since the prior study. The spleen, adrenals, kidneys, and pancreas are unchanged. Peritoneum and bowel: The stomach, duodenum, and remainder of the small bowel loops are nondilated. However, multiple fluid-filled small bowel loops are present that are borderline prominent in size me asuring up to 2.8 cm in diameter. Air and stool are seen throughout the colon. There is mild distal colonic diverticulosis. No complete bowel obstruction is appreciated. No free fluid or free air is evident within the abdomen. Nodes and vessels: No retroperitoneal or mesenteric adenopathy. Aorta and inferior vena cava are no rmal in caliber. Bones: Advanced degenerative changes of the spine are present. There are postoperative changes relat ed to lumbosacral spinal fusion. PELVIS: Genitourinary: Bladder wall thickness is normal. The prostate is borderline prominent in size. Miscellaneous: No inguinal hernias or adenopathy. Prominent atrophy is evident involving the left g luteus medius, gluteus sarita, gluteus minimus muscles. Additionally, there is atrophy involving th e tensor fascia kelsey muscle on the left and some of the adductor muscles on the left. Mild muscle at rophy on the right involving the gluteus medius, gluteus minimus, and tensor fascial kelsey muscle is n oted on the right. Bones: No suspicious bony lesions. No vertebral body compression fractures. IMPRESSION: 1. Interval cholecystectomy with placement of a biliary stent catheter. This stent catheter is appr opriately positioned. No intrahepatic or extrahepatic biliary dilatation is evident. 2. Fluid/debris within the gallbladder fossa likely is related to residual fluid/phlegmonous change from prior drainage catheter placement, which has subsequently been removed. No definite drainable f luid collection is appreciated. If the patient's symptoms persist, followup CT imaging is recommende d. 3. Unchanged enhancing posterior right hepatic lesion, most likely representing a hemangioma. 4. Mild small bowel ileus without evidence of obstruction. Dictated by: Dylan Zuñiga M.D. on 09/21/2016 at 14:26 Approved by: Dylan Zuñiga M.D. on 09/21/2016 at 14:36
[2016-09-21] MEDS ORDERED: HYDROmorphone 1 mg/mL Inj IVPUSH ONE (16:00)
[2016-09-21] MEDS ORDERED: Lidocaine 2% 6mL Topical Jelly TOPICAL ONE (16:20)
[2016-09-21] MEDS ORDERED: Insulin Human REGular-Omnicell 100 Unit/mL SUBQ ONE (17:00)
[2016-09-21] MEDS ORDERED: Insulin LISPRO 300 Unit/3 mL Inj SUBQ ONE (17:00)
[2016-09-21 17:28] VITALS: BP 153/74; PULSE 117; RESP 16; O2SAT 100
[2016-09-21] MEDS ORDERED: Lidocaine 2% 5 mL Topical Jelly MUC_MEMBRM ONE (18:20)
[2016-09-21 18:55] VITALS: BP 149/64; PULSE 113; RESP 16; O2SAT 100
== END 2016-09-21 18:56 | disposition short-term general hospital (02) ==
LOC: SED 13:11 → EDBD 13:11 → SED 18:56
DX: K83.1 Obstruction of bile duct (principal); R33.9 Retention of urine, unspecified; E11.65 Type 2 diabetes mellitus with hyperglycemia; I10 Essential (primary) hypertension; I25.10 Atherosclerotic heart disease of native coronary artery without angina pectoris; K21.9 Gastro-esophageal reflux disease without esophagitis; Z79.899 Other long term (current) drug therapy; Z79.82 Long term (current) use of aspirin; Z79.4 Long term (current) use of insulin; Z87.891 Personal history of nicotine dependence; Z88.0 Allergy status to penicillin; Z88.5 Allergy status to narcotic agent; Z91.048 Other nonmedicinal substance allergy status
CPT/HCPCS: 36415; 51702; 74177; 80053; 82948; 83690; 83735; 85025; 85610; 85730; 96365; 96367; 96372; 96375; 96376; 99285; J0696; J1170; J1815; J2250; J2405; J3010; J3490; Q9967

== ENCOUNTER 2016-10-14 15:49 | Observation (INO) | payer MEDICARE ==
[~2016-10-14] VITALS: Ht 170.2 cm; Wt 86.9 kg
[2016-10-14] VITALS (9 sets, daily range): BP systolic 75–129; BP diastolic 42–72; PULSE 60–92; RESP 13–18; O2SAT 96–100
--- NOTE | 2016-10-14 16:24 | ED.REPORT ---
HPI-General Illness Date of Service October 14, 2016 ED Provider: Aroldo Waddell DO The patient is a 65 year old male with history of coronary artery disease s/p cardiac stent - on Plavix, diabetes mellitus, hypertension, hyperlipidemia, GERD , recent cholecystectomy with multiple complications requiring transfer to [facility], who was sent to the emergency department by his regular doctor for elevated potassium. The patient states the only reason he is here is because his potassium level is high. He is otherwise feeling well. He denies lightheadedness, dizziness, chest pain, shortness of breath. Nursing Notes Stated Complaint: ELEVATED POTASSIUM Chief Complaint: General Complaint Nursing Notes Reviewed: Yes Allergies: Coded Allergies: Penicillins (Verified Allergy, Severe, anaphylaxis, 10/14/16) hydrocodone (Verified Allergy, Severe, stomach ache, 10/14/16) TAPE (Verified Allergy, Intermediate, rash, 10/14/16) surgical tape only codeine (Verified Allergy, Unknown, UNKNOWN, 10/14/16) Uncoded Allergies: ARM BRACE (NEOPRENE) (Adverse Reaction, Severe, ITCH, RASH, 12/16/15) Scheduled Aspirin (Aspirin) 81 Mg Tablet 81 MG PO QAM Atenolol (Atenolol) 25 Mg Tablet 25 MG PO QAM Atorvastatin (Lipitor) 10 Mg Tab 10 MG PO HS Brimonidine Tartrate/Timolol (Combigan Eye Drops) 5 Ml Drops 1 DROP BOTH_EYES BID Clopidogrel Bisulfate (Plavix) 75 Mg Tablet 75 MG PO QAM Gabapentin (Gabapentin) 400 Mg Capsule 1,200 MG PO TID Hydrochlorothiazide (Hydrochlorothiazide) 25 Mg Tablet 25 MG PO DAILY Insulin Glargine,Hum.rec.anlog (Toujeo Solostar) 300 Unit/Ml (1.5 Ml) Insuln.pen 40 UNIT SQ QAM Omeprazole (Omeprazole) 20 Mg Capsule.dr 20 MG PO BIDWM Vit B Comp/C/FA/Iron/Vit E (Vitamin B Complex Tablet) 1 Each Tablet 1 EACH PO QAM Scheduled PRN Insulin Lispro (Humalog Kwikpen) 200 Unit/Ml (3 Ml) Insuln.pen 20-35 UNIT SQ DIRECTED PRN PRN CARB COUNTING INSULIN TO CARB RATIO: 1 unit : 5 gram carbohydrates, PT HOLDS INSULIN FOR BG < 150 AT HS Triamcinolone Acet (Triamcinolone Acetonide Cream) 1 Applic/0.25 Gm Cr 1 APPLIC EXT BID PRN PRN dermatitis 0.1% General Time Seen by MD: 16:20 Chief Complaint Other (high potassium) Hx Obtained From: Patient, Spouse Arrived By: Walk-in Sudden in Onset?: No Onset Occurred: Onset unknown Symptom Duration: Duration unknown Severity: Current: No pain currently Severity: Maximum: No pain Recent Healthcare: Recent doctor visit, Recent hospitalization, Previous surgery Similar Sx Previous: No Past Medical History Past Medical History Coronary Artery Disease (on Plavix) Diabetes Mellitus (type II) Hypertension Hyperlipidemia GERD Obesity Dyshidrotc eczema Angina pectoris Sleep apnea Osteoarthritis Admission for bowel duct occlusion status post cholecystectomy acute cholecystitis and August 2016 Past Surgical History Cardiac Surgery (HEART CATH W/ BEATRIZ IN LAD 02/2007) Lumbar Neck surgery Laparoscopy converted to open, partial cholecystectomy with repair, and hepatic duct injury and drain placement 08/28/2016 by [facility] -> transferred to for ERCP and stent placement (done 09/01/16), seen (09/20/16 in F/U w/Dr. Zamudio, MARQUISE drain removed) answered to [facility] subsequent ERCP and stent placement September 01 Reports: Cataract surgery Smoking History Former Smoker Social History Other Social History: Good social support, , Local resident Ambulatory Status Independent Review of Systems +elevated potassium Full Review of Systems Respiratory: Denies: Shortness of breath Cardiovascular: Denies: Chest pain Neurologic: Denies: Dizziness, Lightheaded Complete sys rev & neg: except as marked. Physical Exam Vital Signs Vital Signs Date Time Temp Pulse Resp B/P Pulse Ox O2 Delivery O2 Flow Rate FiO2 10/14/16 20:23 60 16 109/63 100 Room Air 10/14/16 16:36 75 86/42 10/14/16 16:35 78 75/45 10/14/16 15:53 36.3 92 16 119/72 98 Room Air Initial VS: Reviewed Head / Eyes: Atraumatic, Normocephalic, PERRL ENT: Mucous membranes moist, Conjunctiva normal, No scleral icterus Neck: Supple, Non-tender, Full range of motion Lymphatic: No lymphadenopathy Extremities: Vascular intact, Neuro intact, No swelling, No tenderness Skin: Warm, Dry, No cyanosis Neurologic: Alert, Oriented, Nonfocal Psychiatric: Mood/affect normal, Behavior normal, Normal thought content General/Constitutional: Awake, Alert Respiratory / Chest: Atraumatic, Breath sounds NL, Breath sounds = bilat, No respiratory distress, No rales, No rhonchi, No wheezing Cardiovascular: Heart rate NL, Regular rhythm, Heart sounds NL, No gallop, No murmurs, No rubs, Cap refill not delayed, Peripheral circulation NL Abdomen: Atraumatic, Soft, Non-tender, McBurney's non-tender, No guarding, No rebound, BS normoactive, No distention Well healed upper abdominal scar. Interpretation & Diagnostics Lab Results Interpretation Result Diagram: 10/15/16 0557 10/15/16 0557 Test 10/14/16 16:37 10/14/16 20:34 Prothrombin Time 9.5sec (8.1-12.5) Prothromb Time International Ratio 0.89ratio Troponin T < 0.010ug/L (0.0-0.011) Pro-B-Type Natriuretic Peptide 184.9pg/mL (0-210) Lipase 50U/L (13-60) Hold Maldonado Top Tube Received (Received) Urine Color Yellow (YELLOW) Urine Appearance Clear (CLEAR,HAZY) Urine pH 5.5 (5.0-8.0) Urine Specific [place] 1.005 (1.003-1.035) Urine Protein Negativemg/dL (NEG,TRACE) Urine Glucose (UA) Negativemg/dL (NEGATIVE) Urine Ketones Negativemg/dL (NEGATIVE) Urine Occult Blood Negative (NEGATIVE) Urine Nitrite Negative (NEGATIVE) Urine Bilirubin Negative (NEGATIVE) Urine Urobilinogen Normalmg/dL (NORMAL) Urine Leukocyte Esterase Negative (NEGATIVE) Urine RBC 0-2/hpf (0-2) Urine WBC 0-5/hpf (0-5) Urine Epithelial Cells Occasional/hpf (NONE-MOD) Urine Crystals None seen (NONE SEEN) Urine Bacteria None/hpf (NONE-FEW) Urine Hyaline Casts None/lpf (NONE) Urine Granular Casts None seen (NONE SEEN) Urine Waxy Casts None seen (NONE SEEN) Urine Red Blood Cell Casts None seen (NONE SEEN) Urine White Blood Cell Casts None seen (NONE SEEN) Urine Mucus None seen (None Seen) Urine Trichomonas None seen (NONE SEEN) Urine Yeast None (NONE SEEN) Urine Culture Reflexed Not indicated ECG Interpretation ECG Interpretation: Normal sinus rhythm with a rate of 75 Inverted T wave in lead III which is new compared to previous No peaked T waves Time: 16:43 Interpreted by: ED physician X-Ray Chest Interpretation Chest Xray Interpretation: IMPRESSION: Minimal right basilar scarring/atelectasis. Otherwise negative chest. Dictated by: Omer Arteaga M.D. on 10/14/2016 at 16:57 Interpretation / Wet Read by: Interpret - Radiologist Re-Eval/Medical Decision Med Decision/Clinical Course 65-year-old male with a history of coronary artery disease status post stent, hypertension, diabetes, and recent hospitalization for cholecystitis which had some surgical complications and required treatment at [facility] by a specialist presents with hypotension and hyperkalemia. He is asymptomatic today and came because of a phone call from his primary doctor. He is on lisinopril and spironolactone for blood pressure. Today after receiving 1 L of normal saline and his blood pressure improved, however we treated him with Lasix to try to lower his potassium and he became hypotensive again, however asymptomatic. He was given 2 additional liters of fluids. There were no EKG changes associated with hyperkalemia on arrival. I am uncomfortable discharging him home from the ER because of the hypotension and hyperkalemia. I suspect the hypotension and hyperkalemia are iatrogenic he could likely come off one of his blood pressure medications. No signs of infection on chest x-ray , UA, or other lab work, except his procalcitonin and lactate are slightly elevated. Patient does not meet sepsis criteria at this time. Blood cultures are pending. I did not start empiric antibiotics. Source of Hx: Old records, Family, Private physician Time of Eval: 20:33 Re-Evaluation/Progress Note: Rechecked the patient. Discussed lab results, diagnosis, and plan for admission. All questions were addressed. Consultation : Referral / Consult Name: Luli Winter DO Consulted With: Hospitalist Requested Call at: 21:00 Call Returned at: 22:03 Visual Journalist: Will see patient, Agrees with eval, Agrees with plan, Accepts admit Counseled Regarding: Diagnosis, Lab results, Need for admission Discharge & Departure Primary Impression: Hyperkalemia Additional Impressions: Hypotension Hypotension type: unspecified hypotension type Qualified Code: I95.9 - Hypotension, unspecified Hyperglycemia Anemia Disposition: ADMITTED TO HOSPITAL Discharge Condition All VS Reviewed: Yes Condition: Stable Referrals: Ashwini Malone DO (PCP) Prudencio Attestation Portions of this note were transcribed by Lilly Yadav. Dr. Bairon Limon personally performed the history, physical exam and medical decision-making; I reviewed and confirmed the accuracy of the information in the transcribed note. Signed by: Prudencio Hoffman, 10/14/2016 at 2205. copies to: Ashwini Malone Gary R DO October 14, 2016 16:24 Lilly Yadav October 14, 2016 16:46 Chest Xray Interpretation: IMPRESSION: Minimal right basilar scarring/atelectasis. Otherwise negative chest. Dictated by: Omer Arteaga M.D. on 10/14/2016 at 16:57 Interpretation / Wet Read by: Interpret - Radiologist Re-Eval/Medical Decision Source of Hx: Old records, Family, Private physician Time of Eval: 20:33 Re-Evaluation/Progress Note: Rechecked the patient. Discussed lab results, diagnosis, and plan for admission. All questions were addressed. Consultation : Referral / Consult Name: Luli Winter DO Consulted With: Hospitalist Requested Call at: 21:00 Call Returned at: 22:03 Visual Journalist: Will see patient, Agrees with eval, Agrees with plan, Accepts admit Counseled Regarding: Diagnosis, Lab results, Need for admission Discharge & Departure Primary Impression: Hyperkalemia Additional Impressions: Hypotension Hypotension type: unspecified hypotension type Qualified Code: I95.9 - Hypotension, unspecified Hyperglycemia Disposition: ADMITTED TO HOSPITAL Discharge Condition All VS Reviewed: Yes Condition: Stable Referrals: Ashwini Malone DO (PCP) Prudencio Attestation Portions of this note were transcribed by Lilly Yadav. Dr. Bairon Limon personally performed the history, physical exam and medical decision-making; I reviewed and confirmed the accuracy of the information in the transcribed note. Signed by: Prudencio Hoffman, 10/14/2016 at 2205. copies to: Ashwini Malone Gary R DO October 14, 2016 16:24 Lilly Yadav October 14, 2016 16:46
[2016-10-14 16:40] LABS: BASOPHILS % (AUTO) 0.5 % (0-3); EOSINOPHILS % (AUTO) 2.5 % (0-5); MONOCYTES % (AUTO) 9.4 % (4-12); Mean Corpuscular Hemoglobin 27.6 pg (27.0-35.0); Mean Corpuscular Volume 89.1 fL (81-100); NEUTROPHILS % (AUTO) 63.8 % (40-74); Platelet Count 327 bil/L (150-400)
[2016-10-14] MEDS ORDERED: 0.9% Sodium Chloride 1,000 ML IV ONE ×3 (16:47→20:45)
--- NOTE | 2016-10-14 16:59 | DRSVH ---
PROCEDURE: X-RAY CHEST ONE VIEW, PORTABLE ([id number]) INDICATIONS: hypotension TECHNIQUE: One view of the chest was acquired. COMPARISON: [facility], CR, XR CHEST 1VW (PORTABLE), 08/29/2016, 5:48. FINDINGS: Surgical changes and devices: None. ET tube, enteric tube, and right IJ CVC have been removed. Lungs and pleura: No pleural effusions or pneumothorax. Lungs are clear. Mediastinum: Mediastinal contours appear normal. Heart size is normal. Bones and chest wall: No suspicious bony lesions. Overlying soft tissues appear unremarkable. IMPRESSION: Minimal right basilar scarring/atelectasis. Otherwise negative chest. Dictated by: Omer Arteaga M.D. on 10/14/2016 at 16:57 Approved by: Omer Arteaga M.D. on 10/14/2016 at 16:58
[2016-10-14 17:02] LABS: INR 0.89 ratio
[2016-10-14] MEDS ORDERED: Furosemide 10 mg/mL 4 mL Inj ONE (18:27)
[2016-10-14 20:07] LABS: Magnesium 1.8 mg/dL (1.6-2.6)
[2016-10-14 20:08] LABS: TROPONIN T < 0.010 ug/L (0.0-0.011)
[2016-10-14 20:59] LABS: APPEARANCE,URINE CLEAR (CLEAR,HAZY); COLOR,URINE YELLOW (YELLOW); OCCULT BLOOD,URINE NEGATIVE (NEGATIVE); PH,URINE 5.5 (5.0-8.0); UROBILINOGEN,URINE NORMAL (NORMAL)
[2016-10-14 21:04] LABS: Lipase 50 U/L (13-60)
[2016-10-14] MEDS ORDERED: Ondansetron 2 mg/mL 2 mL Inj IVPUSH PRN (22:15)
[2016-10-14] MEDS ORDERED: Alum-Mag Hydrox-Simeth 30 mL Suspension PO PRN (22:15)
[2016-10-14] MEDS ORDERED: Polyethylene Glycol (PEG) 17 Gm Powder PO PRN (22:15)
[2016-10-14] MEDS ORDERED: Insulin GLARgine 100 Unit/mL Syringe SUBQ SCH (22:45)
[2016-10-14] MEDS ORDERED: Glucose 40% Oral Gel 15 Gm Tube PO PRN (22:50)
[2016-10-14] MEDS ORDERED: Dextrose 10% 250 ML IV PRN (22:50)
[2016-10-14] MEDS: Insulin LISPRO 300 Unit/3 mL Inj SUBQ SCH (23:00)
[2016-10-14] MEDS: COMBIGAN OPTH AFFECT_EYE SCH (23:00)
--- NOTE | 2016-10-14 23:00 | PCM.HPMED ---
Subjective Date of Service October 14, 2016 Primary Provider: Admitting Physician: Luli Winter DO Primary Care Physician: Ashwini Malone DO Attending Physician: Luli Winter DO Admit Status: From the Emergency Department Chief Complaint: Hypotension and hyperkalemia History of Present Illness: Justin March is a 65 year old man with a PMH of DM2 on insulin, CAD s/p stenting on plavix, HTN, hyperlipidemia, and GERD who underwent recent cholecystectomy with subsequent operative complications of bile duct injury requiring biliary stent who presents at the recommendation of his PCP Dr. Malone who in the course of post operative lab evaluation observed Hyperkalemia. He states that other than some periodic GERD he feels fine, he does state that he is quite deconditioned from his recent hospital stay but denies chest pain, palpitations , abdominal pain, nausea, vomiting, diarrhea, constipation, fevers or chills. He states that his blood sugars have been running in the high 100s to low 200 range since SC. He states that his insulin protocol was recently dramatically decreased with his Lantus switched from 120U daily to 40U BID with concurrent correctional scale insulin. In the ED the patient was initially quite Hypotensive upon admission, he was given 3L of fluid and a single dose of Lasix to encourage K excretion. Lab evaluation was significant for K 6, and minimally elevated procalcitonin of uncertain etiology. Review of Systems: Comprehensive ROS negative except as outlined above in the HPI Allergies Coded Allergies: Penicillins (Verified Allergy, Severe, anaphylaxis, 10/14/16) hydrocodone (Verified Allergy, Severe, stomach ache, 10/14/16) TAPE (Verified Allergy, Intermediate, rash, 10/14/16) surgical tape only codeine (Verified Allergy, Unknown, UNKNOWN, 10/14/16) Uncoded Allergies: ARM BRACE (NEOPRENE) (Adverse Reaction, Severe, ITCH, RASH, 12/16/15) Home Medications Scheduled Aspirin (Aspirin) 81 Mg Tablet 81 MG PO DAILY Atenolol (Atenolol) 25 Mg Tablet 25 MG PO DAILY Atorvastatin (Lipitor) 10 Mg Tab 10 MG PO HS Brimonidine Tartrate/Timolol (Combigan Eye Drops) 5 Ml Drops 1 DROP AFFECT_EYE BID Clopidogrel Bisulfate (Plavix) 75 Mg Tablet 75 MG PO DAILY Gabapentin (Gabapentin) 400 Mg Capsule 1,200 MG PO TID Insulin Glargine,Hum.rec.anlog (Toujeo Solostar) 300 Unit/Ml (1.5 Ml) Insuln.pen 40 UNIT SQ QAM Liraglutide (Victoza 2-Kristofer) 0.6 Mg/0.1 Ml Pen.injctr 0.6 MG SQ MORNING Lisinopril (Lisinopril) 40 Mg Tablet 40 MG PO DAILY Spironolactone (Spironolactone) 25 Mg Tablet 25 MG PO DAILY Triamcinolone Acet (Triamcinolone Acetonide Cream) 1 Applic/0.25 Gm Cr 1 APPLIC EXT BID 0.1% Vit B Comp/C/FA/Iron/Vit E (Vitamin B Complex Tablet) 1 Each Tablet 1 EACH PO DAILY Scheduled PRN Insulin Lispro (Humalog Kwikpen) 200 Unit/Ml (3 Ml) Insuln.pen 25-45 UNIT SQ DIRECTED PRN PRN CARB COUNTING INSULIN TO CARB RATIO: 1:1, PT HOLDS INSULIN FOR BG < 150 AT HS PMH Coronary Artery Disease (on Plavix) Diabetes Mellitus (type II) Hypertension Hyperlipidemia GERD Obesity Dyshidrotc eczema Angina pectoris Sleep apnea Osteoarthritis Admission for biliary duct occlusion status post cholecystectomy acute cholecystitis and August 2016 Surgical History Cardiac Surgery (HEART CATH W/ BEATRZI IN LAD 02/2007) Lumbar Neck surgery Laparoscopy converted to open, partial cholecystectomy with repair, and hepatic duct injury and drain placement 08/28/2016 by [facility] -> transferred to for ERCP and stent placement (done 09/01/16), seen (09/20/16 in F/U w/Dr. Zamudio, MARQUISE drain removed) transferred to [facility] subsequent ERCP and stent placement September 01 Reports: Cataract surgery Family History DM2 and HTN in multiple relatives Social History Hx Alcohol Use: Yes (RARELY) Hx Substance Use: No Smoking Status: Former Smoker Exam Vital Signs Vital Sign - Last Date Time Temp Pulse Resp B/P Pulse Ox O2 Delivery O2 Flow Rate FiO2 10/14/16 22:36 72 18 115/62 100 Room Air 10/14/16 15:53 36.3 Exam GEN: A/O x3 pleasant cooperative gentleman in NAD Neck: Supple, non tender, no thyromegaly, no JVD HEENT: PERRL, EOMI, no scleral icterus, no conjunctival pallor, mucous membranes moist CV: RRR, no murmurs rubs or gallops Pulm: Lungs CTA BL, no wheezing rales or rhonchi GI: Soft, non tender, no organomegaly, well healed surgical scar in RUQ, no rebound guarding or masses Extr: mild diffuse muscle wasting, no cyanosis clubbing or edema Skin: no erythema, ecchymosis, or rash noted MSK: no erythema or edema of joints, full ROM Lymph: no cervical or supraclavicular lymphadenopathy Neuro: CN 2-12 grossly intact, no focal neurologic deficit Psych: Pleasant and appropriate mood and affect Lab and Diagnostics Labs Item Value Date Time Red Blood Count 3.95 mil/mm3 L 10/14/16 163 Neutrophils (%) (Auto) 63.8 % 10/14/16 1637 Lymphocytes (%) (Auto) 23.3 % 10/14/16 1637 Monocytes (%) (Auto) 9.4 % 10/14/16 1637 Eosinophils (%) (Auto) 2.5 % 10/14/16 1637 Basophils (%) (Auto) 0.5 % 10/14/16 163 Estimat Glomerular Filtration Rate 99 mL/min 10/14/16 2152 Lactic Acid Level 2.3 mmol/L H 10/14/16 1637 Calcium Level 8.4 mg/dL L 10/14/162 Total Bilirubin 0.5 mg/dL 10/14/16 2152 Aspartate Amino Transf (AST/SGOT) 11 U/L 10/14/16 2152 Alanine Aminotransferase (ALT/SGPT) 13 U/L 10/14/16 2152 Alkaline Phosphatase 208 U/L H 10/14/16 2152 Total Protein 6.2 g/dL L 10/14/16 2152 Albumin 3.5 g/dL 10/14/16 2152 Troponin T < 0.010 ug/L 10/14/16 1637 Pro-B-Type Natriuretic Peptide 184.9 pg/mL 10/14/16 1637 Procalcitonin 0.12 ng/mL H 10/14/16 1637 Result Diagram: 10/14/16 1637 10/14/162151 Microbiology Blood cultures pending X-Rays, CTs and MRIs X-RAY CHEST ONE VIEW, PORTABLE IMPRESSION: Minimal right basilar scarring/atelectasis. Otherwise negative chest. Dictated by: Omer Arteaga M.D. on 10/14/2016 at 16:57 Approved by: Omer Arteaga M.D. on 10/14/2016 at 16:58 . 12-lead ECG Normal sinus rhythm with a rate of 75 Inverted T wave in lead III which is new compared to previous No peaked T waves Assessment & Plan Justin March is a 65 year old man with a PMH of DM2, HTN, anxiety, CAD s/p stenting 2006, and recent cholecystectomy complicated by common bile duct injury and post operative bleeding managed with biliary stent at [facility] who presents at the recommendation of his PCP Dr. Malone for Hyperkalemia and Hypotension. Patient with minimally elevated Procalc at Lactic acidosis in the setting of Hypotension, but no infectious symptoms or obvious sources with a normal white count. Hyperkalemia likely secondary to hemolysis from recent post surgical bleed and hyperglycemia upon presentation, patient was given 3L of NS with concurrent Lasix in the ED and repeat CMP showed correction of his potassium; however give the patient's recent history and concern for occult infection it was deemed prudent to admit him for further evaluation. 1. Hyperkalemia, POA, acute. improved -Likely secondary to hemolysis from recent post surgical bleed and poorly controlled Blood glucose from recent Insulin protocol adjustments with concurrent use of Aldactone -Patient given 3L NS in the ED and single dose if 40 mg IV lasix which resulted in robust diuresis and interval correction of his hyperkalemia -K remains borderline at 4.9 upon reassessment -Holding home Aldactone and Lisinopril -Single dose 15 g PO kayexalate -Will repeat CMP tomorrow AM to reassess 2. Hypotension, POA, acute, Improved -Etiology uncertain -Could represent occult infection though patient is asymptomatic, possible a/w medications -Corrected with IVF -Holding home Aldactone and Lisinopril as above 3. Elevated Lactic, POA, acute. Active -lactic acid minimally elevated at 2.3 -IVF as above in the ED, continued at 100 ml/hr -Will trend Q4 -Etiology uncertain, as above could represent occult infection -Will hold antibiotic administration unless infection declares itself by clinical assessment or lab values 4. DM2, POA, acute. Active -HA1c pending -Lantus 40U daily, concurrent Lispro medium dose correction scale per patients reported adjusted outpatient regimen -Diabetic constant carb diet -Continue home Gabapentin 1200 mg PO TID 5. HTN, POA, acute. Active -Patient markedly hypotensive upon presentation -Given 3L NS + 40 mg IV furosemide corrected BP to low normal -Holding Aldactone and Lisinopril as above -Continue home Atenolol with holding parameters 6. Hx of [place] with drug eluding stent, POA, chronic. Active -Continue home plavix 75 mg -Continue home Atorvastatin 10 mg -Continue home Aspirin 81 mg 7. Mild normocytic anemia, POA, acute. Active -Likely secondary to recent surgical bleeding complication -Will repeat CBC in the AM 8. Elevated Alk Phos, POA, acute. Active -Likely secondary to recent biliary surgery, continue to monitor closely Code Status: FULL CODE Disposition: Observation, anticipated length of stay < 2 midnights, may need to be converted to inpatient if patient develops increased signs or symptoms of infection Pain Evaluation: Adequate Pain Control GI Prophylaxis: H2 aleyda VTE Prophylaxis: Sub-Q Heparin (Unfractionated) VTE Mechanical Devices: Intermittant Pneumatic CD Resuscitation Status: CPR: Attempt Resuscitation Attending Statement The patient was seen and examined together with house staff on 10/14/2016 and I agree with the history, exam and plan as outlined in the note above. Lennox Lyn DO October 14, 2016 23:00 Luli Winter DO October 15, 2016 03:34
[2016-10-14] MEDS: 0.9% Sodium Chloride 1,000 ML IV SCH (23:11)
[2016-10-15] MEDS: Heparin 5,000 Unit/mL Inj SUBQ SCH ×2 (00:30→08:06)
[2016-10-15] MEDS: Sodium Chloride LOK Flush 10 mL Syringe IVFLUSH SCH ×2 (00:30→07:45)
[2016-10-15] MEDS ORDERED: OMEP20CA11 PO (01:15)
[2016-10-15 05:16] VITALS: BP 118/68; PULSE 74; RESP 18; O2SAT 97
[2016-10-15 06:19] LABS: BASOPHILS % (AUTO) 0.5 % (0-3); EOSINOPHILS % (AUTO) 4.3 % (0-5); MONOCYTES % (AUTO) 13.6 % (4-12); Mean Corpuscular Hemoglobin 28.1 pg (27.0-35.0); Mean Corpuscular Volume 88.9 fL (81-100); Platelet Count 282 bil/L (150-400)
[2016-10-15 06:45] LABS: Magnesium 1.6 mg/dL (1.6-2.6); Phosphorus 3.6 mg/dL (2.5-4.9)
[2016-10-15] MEDS: Insulin LISPRO 300 Unit/3 mL Inj SUBQ SCH ×2 (07:28→11:23)
[2016-10-15 07:55] VITALS: BP 108/63; PULSE 72; RESP 14; O2SAT 94
[2016-10-15] MEDS: 0.9% Sodium Chloride 1,000 ML IV SCH (08:15)
[2016-10-15] MEDS: COMBIGAN OPTH AFFECT_EYE SCH (08:23)
[2016-10-15] MEDS ORDERED: Insulin GLARgine 100 Unit/mL Syringe SUBQ SCH (08:30)
[2016-10-15] MEDS ORDERED: Vitamin B Complex/Vit C Tablet PO SCH (08:30)
[2016-10-15 09:20] VITALS: BP 105/54; PULSE 73; RESP 16; O2SAT 97
[2016-10-15 11:27] VITALS: PULSE 72
[2016-10-15] MEDS ORDERED: COMBIGAN OPTH AFFECT_EYE SCH (12:06)
[2016-10-15 13:55] VITALS: BP 99/51; PULSE 70; RESP 18; O2SAT 97
--- NOTE | 2016-10-15 15:03 | PCM.DIMED ---
Discharge Instructions Date of Service October 15, 2016 Dates of Hospitalization October 14, 2016 at 21:14 Discharge Diagnosis Discharge Diagnosis Hyperkalemia Hypertension Resolving intra-abdominal hematoma Diet Heart Healthy, Diabetic, Other (low pottasium diet for month or two) Patient Instructions Follow-up plan follow up with your primary care provider nest week for a repeat potassium level Jolene Delgadillo MD October 15, 2016 15:03
[2016-10-15] MEDS ORDERED: HYDR25TA4 PO (15:06)
--- NOTE | 2016-10-15 15:18 | PCM.DC.MED ---
Discharge Summary Date of Service October 15, 2016 Dates of Hospitalization Date of Hospital Admission October 14, 2016 at 21:14 Date of Discharge: October 15, 2016 Providers: Admitting Physician: Luli Winter DO Primary Care Physician: Ashwini Malone DO Attending Physician: Luli Winter DO Diagnosis at Time of Discharge Diagnosis at Time of Discharge Hyperkalemia Hypertension Resolving intra-abdominal hematoma Procedures XRay, CTs & MRIs X-RAY CHEST ONE VIEW, PORTABLE IMPRESSION: Minimal right basilar scarring/atelectasis. Otherwise negative chest. Dictated by: Omer Arteaga M.D. on 10/14/2016 at 16:57 Approved by: Omer Arteaga M.D. on 10/14/2016 at 16:58 . ECG 12 Lead Normal sinus rhythm with a rate of 75 Inverted T wave in lead III which is new compared to previous No peaked T waves Brief History Justin March is a 65 year old man with a PMH of DM2 on insulin, CAD s/p stenting on plavix, HTN, hyperlipidemia, and GERD who underwent recent cholecystectomy with subsequent operative complications of bile duct injury requiring biliary stent who presents at the recommendation of his PCP Dr. Malone who in the course of post operative lab evaluation observed Hyperkalemia. He states that other than some periodic GERD he feels fine, he does state that he is quite deconditioned from his recent hospital stay but denies chest pain, palpitations , abdominal pain, nausea, vomiting, diarrhea, constipation, fevers or chills. He states that his blood sugars have been running in the high 100s to low 200 range since [place]. He states that his insulin protocol was recently dramatically decreased with his Lantus switched from 120U daily to 40U BID with concurrent correctional scale insulin. In the ED the patient was initially quite Hypotensive upon admission, he was given 3L of fluid and a single dose of Lasix to encourage K excretion. Lab evaluation was significant for K 6, and minimally elevated procalcitonin of uncertain etiology. Hospital Course Justin March is a 65 year old man with a PMH of DM2, HTN, anxiety, CAD s/p stenting 2006, and recent cholecystectomy complicated by common bile duct injury and post operative bleeding managed with biliary stent at [facility] who presents at the recommendation of his PCP Dr. Malone for Hyperkalemia and Hypotension. Patient with minimally elevated Procalc at Lactic acidosis in the setting of Hypotension, but no infectious symptoms or obvious sources with a normal white count. Hyperkalemia likely secondary to hemolysis from recent post surgical bleed and hyperglycemia upon presentation, patient was given 3L of NS with concurrent Lasix in the ED and repeat CMP showed correction of his potassium; however give the patient's recent history and concern for occult infection it was deemed prudent to admit him for further evaluation. 1. Hyperkalemia, POA, acute. improved -Likely secondary to hemolysis from recent post surgical bleed and lisinopril and aldactone and underlying diabetes -Patient given 3L NS in the ED and single dose if 40 mg IV lasix which resulted in robust diuresis and interval correction of his hyperkalemia -Discharge Home; Stop aldactone and lisinopril, start HCTZ 25, low K diet and see doctor few days for a repeat K level -discharge K = 4.6 2. Hypotension, POA, acute, Improved -Etiology uncertain -Discharge Home; stop lisinopril 3. Elevated Lactic, POA, acute. Active -lactic acid minimally elevated at 2.3, now normal -probably related to hematoma, out patient follow up -normalized 4. DM2, POA, acute. Active -HA1c pending at time of discharge -Lantus 40U daily, concurrent Lispro medium dose correction scale per patients reported adjusted outpatient regimen -Diabetic constant carb diet -Continue home Gabapentin 1200 mg PO TID 5. HTN, POA, acute. Active -Patient markedly hypotensive upon presentation -Given 3L NS + 40 mg IV furosemide corrected BP to low normal -will stop lisinopril -Continue home Atenolol with holding parameters 6. Hx of [place] with drug eluding stent, POA, chronic. Active -Continue home plavix 75 mg -Continue home Atorvastatin 10 mg -Continue home Aspirin 81 mg 7. Mild normocytic anemia, POA, acute. Active -Likely secondary to recent surgical bleeding complication -Will repeat CBC in the AM 8. Elevated Alk Phos, POA, acute. Active -Likely secondary to recent biliary surgery, continue to monitor closely Code Status: FULL CODE Disposition: Observation, anticipated length of stay < 2 midnights, may need to be converted to inpatient if patient develops increased signs or symptoms of infection Exam Vital Signs (Last) Date Time Temp Pulse Resp B/P Pulse Ox O2 Delivery O2 Flow Rate FiO2 5/13/17 13:55 36.6 70 18 99/51 97 Room Air Test 10/14/16 16:37 10/14/16 20:34 10/14/16 23:46 10/15/16 05:57 Prothrombin Time 9.5sec (8.1-12.5) Prothromb Time International Ratio 0.89ratio Troponin T < 0.010ug/L (0.0-0.011) Pro-B-Type Natriuretic Peptide 184.9pg/mL (0-210) Lipase 50U/L (13-60) Hold Maldonado Top Tube Received (Received) Urine Color Yellow (YELLOW) Urine Appearance Clear (CLEAR,HAZY) Urine pH 5.5 (5.0-8.0) Urine Specific [place] 1.005 (1.003-1.035) Urine Protein Negativemg/dL (NEG,TRACE) Urine Glucose (UA) Negativemg/dL (NEGATIVE) Urine Ketones Negativemg/dL (NEGATIVE) Urine Occult Blood Negative (NEGATIVE) Urine Nitrite Negative (NEGATIVE) Urine Bilirubin Negative (NEGATIVE) Urine Urobilinogen Normalmg/dL (NORMAL) Urine Leukocyte Esterase Negative (NEGATIVE) Urine RBC 0-2/hpf (0-2) Urine WBC 0-5/hpf (0-5) Urine Epithelial Cells Occasional/hpf (NONE-MOD) Urine Crystals None seen (NONE SEEN) Urine Bacteria None/hpf (NONE-FEW) Urine Hyaline Casts None/lpf (NONE) Urine Granular Casts None seen (NONE SEEN) Urine Waxy Casts None seen (NONE SEEN) Urine Red Blood Cell Casts None seen (NONE SEEN) Urine White Blood Cell Casts None seen (NONE SEEN) Urine Mucus None seen (None Seen) Urine Trichomonas None seen (NONE SEEN) Urine Yeast None (NONE SEEN) Urine Culture Reflexed Not indicated White Blood Count 6.3th/mm3 (3.8-10.1) Red Blood Count 3.60mil/mm3 (4.40-5.80) Hemoglobin 10.1g/dL (13.8-17.2) Hematocrit 32.0% (41.0-50.0) Mean Corpuscular Volume 88.9fL (81-100) Mean Corpuscular Hemoglobin 28.1pg (27.0-35.0) Mean Corpuscular Hemoglobin Concent 31.6% (32.0-37.0) Red Cell Distribution Width 15.1% (12.3-15.4) Platelet Count 282bil/L (150-400) Neutrophils (%) (Auto) 50.0% (40-74) Lymphocytes (%) (Auto) 31.1% (14-46) Monocytes (%) (Auto) 13.6% (4-12) Eosinophils (%) (Auto) 4.3% (0-5) Basophils (%) (Auto) 0.5% (0-3) Sodium Level 138mEq/L (134-144) Potassium Level 4.6mEq/L (3.5-5.2) Chloride Level 103mEq/L (97-108) Carbon Dioxide Level 19mmol/L (18-29) Blood Urea Nitrogen 24mg/dL (8-27) Creatinine 0.70mg/dL (0.76-1.27) Estimat Glomerular Filtration Rate 121mL/min (>59) Glucose Level 163mg/dL (60-99) Lactic Acid Level 1.8mmol/L (0.4-2.0) Calcium Level 8.3mg/dL (8.5-10.1) Phosphorus Level 3.6mg/dL (2.5-4.9) Magnesium Level 1.6mg/dL (1.6-2.6) Total Bilirubin 0.4mg/dL (0.0-1.2) Aspartate Amino Transf (AST/SGOT) 14U/L (0-50) Alanine Aminotransferase (ALT/SGPT) 13U/L (0-44) Alkaline Phosphatase 196U/L (25-160) Total Protein 5.7g/dL (6.4-8.4) Albumin 3.1g/dL (3.4-5.0) Procalcitonin 0.09ng/mL (0.00-0.08) Microbiology Results Blood cultures pending Discharge Medications Discharge Medications Aspirin (Aspirin) 81 Mg Tablet 81 MG PO QAM (Reported) Atenolol (Atenolol) 25 Mg Tablet 25 MG PO QAM (Reported) Atorvastatin (Lipitor) 10 Mg Tab 10 MG PO HS (Reported) Brimonidine Tartrate/Timolol (Combigan Eye Drops) 5 Ml Drops 1 DROP BOTH_EYES BID (Reported) Clopidogrel Bisulfate (Plavix) 75 Mg Tablet 75 MG PO QAM (Reported) Gabapentin (Gabapentin) 400 Mg Capsule 1,200 MG PO TID (Reported) Hydrochlorothiazide (Hydrochlorothiazide) 25 Mg Tablet 25 MG PO DAILY Prescribed by: Jolene MAGALLANES MD Insulin Glargine,Hum.rec.anlog (Toujeo Solostar) 300 Unit/Ml (1.5 Ml) Insuln.pen 40 UNIT SQ QAM (Reported) Omeprazole (Omeprazole) 20 Mg Capsule.dr 20 MG PO BIDWM (Reported) Vit B Comp/C/FA/Iron/Vit E (Vitamin B Complex Tablet) 1 Each Tablet 1 EACH PO QAM (Reported) As needed Insulin Lispro (Humalog Kwikpen) 200 Unit/Ml (3 Ml) Insuln.pen 20-35 UNIT SQ DIRECTED PRN PRN CARB COUNTING (Reported) INSULIN TO CARB RATIO: 1 unit : 5 gram carbohydrates, PT HOLDS INSULIN FOR BG < 150 AT HS Triamcinolone Acet (Triamcinolone Acetonide Cream) 1 Applic/0.25 Gm Cr 1 APPLIC EXT BID PRN PRN dermatitis (Reported) 0.1% Followup Plan Follow-up plan follow up with your primary care provider nest week for a repeat potassium level Discharge Diet: Heart Healthy, Diabetic, Other (low pottasium diet for month or two) copies to: Ashwini Malone D Geoffrey MD October 15, 2016 15:17
== END 2016-10-15 16:12 | disposition home or self-care (01) ==
LOC: SED 15:49 → OBSVTOIN 21:14 → INTOOBSV 21:14 → MPC 21:14
PROVIDERS: ADMIT Internal Medicine; ATTEND Internal Medicine
DX: E87.5 Hyperkalemia (principal); I10 Essential (primary) hypertension; S30.1XXA Contusion of abdominal wall, initial encounter; E11.9 Type 2 diabetes mellitus without complications; I25.119 Atherosclerotic heart disease of native coronary artery with unspecified angina pectoris; E78.5 Hyperlipidemia, unspecified; K21.9 Gastro-esophageal reflux disease without esophagitis; I95.9 Hypotension, unspecified; I25.2 Old myocardial infarction; R74.0 Nonspecific elevation of levels of transaminase and lactic acid dehydrogenase [LDH]; D64.9 Anemia, unspecified; R74.8 Abnormal levels of other serum enzymes; E66.9 Obesity, unspecified; L30.1 Dyshidrosis [pompholyx]; G47.30 Sleep apnea, unspecified; M19.90 Unspecified osteoarthritis, unspecified site; Z87.891 Personal history of nicotine dependence; Z95.5 Presence of coronary angioplasty implant and graft; Z79.4 Long term (current) use of insulin; Z79.02 Long term (current) use of antithrombotics/antiplatelets; Z79.82 Long term (current) use of aspirin
CPT/HCPCS: 36415; 71010; 80053; 81000; 83036; 83605; 83690; 83735; 83880; 84100; 84145; 84484; 85025; 85610; 87040; 93005; 96360; 96361; 99285; G0378; J1644; J1815; J7030